=== PATIENT | female | born 1945 | race Caucasian/White ===

== ENCOUNTER → 2016-05-28 | Outpatient (CLI) | payer MEDICARE, OTHER | END | disposition home or self-care (01) | LOC: Rad HDHVI 12:53 | PROVIDERS: ATTEND Internal Medicine Cardiovascular Disease | DX: R07.9 Chest pain, unspecified (principal) | CPT/HCPCS: 93306 ==

== ENCOUNTER → 2016-06-05 | Outpatient (CLI) | payer MEDICARE, OTHER ==
[~2016-06-05] VITALS: Ht 172.7 cm; Wt 68.0 kg
== END | disposition home or self-care (01) ==
LOC: Rad HDHVI 08:01
PROVIDERS: ATTEND Internal Medicine Cardiovascular Disease
DX: R07.9 Chest pain, unspecified (principal); I10 Essential (primary) hypertension; E78.00 Pure hypercholesterolemia, unspecified; E11.9 Type 2 diabetes mellitus without complications; Z82.49 Family history of ischemic heart disease and other diseases of the circulatory system
CPT/HCPCS: 78452; 93017; 96374; A9500

== ENCOUNTER → 2016-07-14 | Outpatient (CLI) | payer MEDICARE, OTHER ==
[~2016-07-14] MED LIST: ALPR0.25 PO; ASPI81TA27 PO; BENA20TA4 PO; CANA1TAB3 PO; FAM20T PO; LINA5TAB PO; METF-312 PO; METF-314 PO; PRO20T PO; SIMV10TA84 PO; TEMA30CA PO
[2016-07-14 09:10] VITALS: BP 134/66
[2016-07-14 09:40] VITALS: BP 143/71
[2016-07-14 12:28] LABS: INR 0.99 (0.9-1.15); Partial Thromboplastin Time 25.8 sec (22.64-33.71); Prothrombin Time 10.2 sec (9.37-12.3)
[2016-07-14 12:32] LABS: Basophils # (auto) 0.1 uL; Basophils % (auto) 1.4 % (0.0-2.0); Eosinophils # (auto) 0.6 uL; Eosinophils % (auto) 10.4 % (0.0-7.0); Hematocrit 39.1 % (36.0-46.0); Hemoglobin 13.2 g/dL (12.2-16.2); Lymphocytes # (auto) 2.1 uL; Lymphocytes % (auto) 33.5 % (10.0-50.0); Mean Corpuscular Hemoglobin 31.8 pg (28.0-32.0); Mean Corpuscular Hgb Conc. 33.7 g/dL (32.0-36.0); Mean Corpuscular Volume 94.3 fL (80.0-100.0); Mean Platelet Volume 9.5 fL (7.4-10.4); Monocytes # (auto) 0.4 uL; Monocytes % (auto) 5.8 % (0.0-12.0); Neutrophils % (auto) 48.9 % (37.0-80.0); Platelet Count (auto) 318 10^3/uL (140-450); Red Cell Distribution Width 13.3 % (11.6-16.0); White Blood Cell 6.2 10^3/uL (4.4-10.8)
[2016-07-14 12:47] LABS: Calcium 8.5 mg/dL (8.5-10.1); Potassium 4.4 mmol/L (3.5-5.1)
== END | disposition home or self-care (01) ==
LOC: Rad HDHVI 08:55
PROVIDERS: ATTEND Internal Medicine Cardiovascular Disease
DX: I10 Essential (primary) hypertension (principal); D64.9 Anemia, unspecified; R79.1 Abnormal coagulation profile
CPT/HCPCS: 36415; 71020; 80048; 85025; 85610; 85730; 93005; G0463

== ENCOUNTER → 2016-10-05 | Outpatient (CLI) | payer MEDICARE, OTHER ==
[~2016-10-05] MED LIST changes: +CANA100T PO; -CANA1TAB3 PO
[2016-10-05 16:37] LABS: Urine Bilirubin Negative (Negative); Urine Blood Negative /uL (Negative); Urine Color Yellow (Yellow); Urine Ketone Negative (Negative); Urine Nitrite Negative (Negative); Urine Urobilinogen Normal (Negative)
[2016-10-05 17:01] LABS: Urine Glucose 4+ mg/dL (Normal)
== END | disposition home or self-care (01) ==
LOC: LAB 15:39
PROVIDERS: ATTEND Internal Medicine Cardiovascular Disease
DX: N39.0 Urinary tract infection, site not specified (principal)
CPT/HCPCS: 81003; 87086

== ENCOUNTER 2017-03-13 16:41 | Emergency (ER) | payer MEDICARE, OTHER ==
[~2017-03-13] VITALS: Ht 172.7 cm; Wt 67.1 kg
[~2017-03-13 16:41] MED LIST changes: +BENA20TA14 PO; -BENA20TA4 PO; -METF-312 PO; -METF-314 PO; +METF-370 PO; +METF-371 PO
[2017-03-13 18:49] VITALS: BP 181/78
[2017-03-13] MEDS ORDERED: HYDROcodone-ACET 5/325MG TAB PO ONE (19:15)
[2017-03-13] MEDS ORDERED: KETOROLAC TROMETH 30 MG/ML 1ML VIAL IM ONE (19:15)
== END 2017-03-13 20:42 | disposition home or self-care (01) ==
LOC: ER 16:41
DX: S20.212A Contusion of left front wall of thorax, initial encounter (principal); E11.9 Type 2 diabetes mellitus without complications; E78.5 Hyperlipidemia, unspecified; I10 Essential (primary) hypertension; Z95.1 Presence of aortocoronary bypass graft; Z88.0 Allergy status to penicillin; Z79.899 Other long term (current) drug therapy; W19.XXXA Unspecified fall, initial encounter; Y93.89 Activity, other specified; Y99.8 Other external cause status; Y92.89 Other specified places as the place of occurrence of the external cause
CPT/HCPCS: 71101; 72100; 93005; 96372; 99284; J1885

== ENCOUNTER → 2017-03-29 | Outpatient (CLI) | payer MEDICARE, OTHER | END | disposition home or self-care (01) | LOC: Rad HDHVI 11:43 | PROVIDERS: ATTEND Internal Medicine Cardiovascular Disease | DX: K44.9 Diaphragmatic hernia without obstruction or gangrene (principal); I70.0 Atherosclerosis of aorta | CPT/HCPCS: 71020 ==

== ENCOUNTER → 2017-04-01 | Outpatient (CLI) | payer MEDICARE, OTHER | END | disposition home or self-care (01) | LOC: LAB 07:45 | PROVIDERS: ATTEND Internal Medicine Cardiovascular Disease | DX: E11.9 Type 2 diabetes mellitus without complications (principal) | CPT/HCPCS: 36415; 83036 ==

== ENCOUNTER → 2017-06-16 | Outpatient (CLI) | payer MEDICARE, OTHER | END | disposition home or self-care (01) | LOC: Rad HDHVI 13:53 | PROVIDERS: ATTEND Internal Medicine Cardiovascular Disease | DX: E11.9 Type 2 diabetes mellitus without complications (principal); G45.9 Transient cerebral ischemic attack, unspecified | CPT/HCPCS: 93880 ==

== ENCOUNTER → 2017-10-14 | Outpatient (CLI) | payer MEDICARE, OTHER ==
[~2017-10-14] VITALS: Ht 172.7 cm; Wt 65.3 kg
[2017-10-14 11:53] LABS: Basophils # (auto) 0.1 uL; Basophils % (auto) 2.2 % (0.0-2.0); Eosinophils # (auto) 0.2 uL; Hematocrit 38.6 % (36.0-46.0); Lymphocytes # (auto) 2.2 uL; Lymphocytes % (auto) 37.6 % (10.0-50.0); Mean Corpuscular Hemoglobin 32.2 pg (28.0-32.0); Mean Corpuscular Hgb Conc. 33.7 g/dL (32.0-36.0); Mean Corpuscular Volume 95.6 fL (80.0-100.0); Monocytes # (auto) 0.4 uL; Monocytes % (auto) 7.6 % (0.0-12.0); Neutrophils # (auto) 2.9 uL; Neutrophils % (auto) 49.6 % (37.0-80.0); Nucleated Red Blood Cells % 0.2 %; Platelet Count (auto) 297 10^3/uL (140-450); Red Blood Cells 4.04 10^6/uL (4.0-5.20); White Blood Cell 5.9 10^3/uL (4.4-10.8)
[2017-10-14 11:54] LABS: Urine Blood Negative /uL (Negative)
[2017-10-14 12:10] LABS: Free T4 (Free Thyroxine) 1.16 ng/dL (0.89-1.76)
[2017-10-14 13:44] LABS: BUN/Creatinine Ratio 29.1; Potassium 4.1 mmol/L (3.5-5.1)
[2017-10-14 13:45] LABS: Albumin 3.8 g/dL (3.4-5.0); Bilirubin, Total 0.5 mg/dL (0.2-1.0); Calcium 8.8 mg/dL (8.5-10.1); Total Protein 8.1 g/dL (6.4-8.2)
== END | disposition home or self-care (01) ==
LOC: Rad HDHVI 08:34
PROVIDERS: ATTEND Internal Medicine Cardiovascular Disease
DX: Z00.01 Encounter for general adult medical examination with abnormal findings (principal); I63.9 Cerebral infarction, unspecified; E11.9 Type 2 diabetes mellitus without complications; E03.9 Hypothyroidism, unspecified; E55.9 Vitamin D deficiency, unspecified; D51.9 Vitamin B12 deficiency anemia, unspecified; N39.0 Urinary tract infection, site not specified
CPT/HCPCS: 36415; 78452; 80053; 80061; 81003; 82306; 82607; 83036; 84439; 84443; 85025; 93017; 96374; A9500

== ENCOUNTER 2018-01-15 04:39 | Inpatient (IN) | payer MEDICARE, OTHER ==
[~2018-01-15] VITALS: Ht 172.7 cm; Wt 63.8 kg
[2018-01-15] MEDS ORDERED: METF-370 PO (06:25)
[2018-01-15 06:29] LABS: Basophils # (auto) 0.1 uL; Basophils % (auto) 0.4 % (0.0-2.0); Eosinophils # (auto) 0 uL; Eosinophils % (auto) 0.3 % (0.0-7.0); Lymphocytes # (auto) 1.7 uL; Lymphocytes % (auto) 10.8 % (10.0-50.0); Mean Corpuscular Hemoglobin 32.3 pg (28.0-32.0); Monocytes # (auto) 0.9 uL; Monocytes % (auto) 5.5 % (0.0-12.0); Neutrophils # (auto) 13.1 uL; Platelet Count (auto) 378 10^3/uL (140-450); Red Blood Cells 4.64 10^6/uL (4.0-5.20); Red Cell Distribution Width 12.7 % (11.8-14.3); White Blood Cell 15.8 10^3/uL (4.4-10.8)
[2018-01-15] MEDS ORDERED: BENA40TA7 PO (06:31)
[2018-01-15] MEDS ORDERED: PROP10TA57 PO (06:31)
[2018-01-15] MEDS ORDERED: SIMV-8 PO (06:31)
[2018-01-15] MEDS ORDERED: CLIN1CAP3 PO (06:31)
[2018-01-15] MEDS ORDERED: METF-371 PO (06:31)
[2018-01-15] MEDS ORDERED: FLUC100T34 PO (06:31)
[2018-01-15] MEDS ORDERED: LINA5TAB PO (06:31)
[2018-01-15] MEDS ORDERED: CANA100T OR (06:31)
[2018-01-15 06:49] LABS: Albumin 4.3 g/dL (3.4-5.0); BUN/Creatinine Ratio 18.7; Bilirubin, Total 0.7 mg/dL (0.2-1.0); Calcium 8.8 mg/dL (8.5-10.1); Potassium 4.2 mmol/L (3.5-5.1); Total Protein 9.3 g/dL (6.4-8.2)
[2018-01-15 06:57] LABS: Urine Bacteria FEW /hpf (None Seen); Urine Blood Negative /uL (Negative); Urine Hyaline Cast FEW /lpf (0 - 2); Urine Mucus FEW (None Seen); Urine Specific Gravity 1.034 (1.001-1.035); Urine WBC 10 /hpf (0 - 5)
[2018-01-15] MEDS ORDERED: MORPHINE SULFATE 4 MG/ML SYR/VIAL IV ONE (07:45)
[2018-01-15] MEDS ORDERED: PROMETHAZINE HCL 25 MG/ML 1ML IV PRN ×2 (07:45→11:15)
[2018-01-15 08:42] LABS: INR 0.92 (0.9-1.15); Partial Thromboplastin Time 25.6 sec (23.78-33.04); Prothrombin Time 9.9 sec (9.27-12.13)
[2018-01-15 08:45] LABS: Magnesium 2.5 mg/dL (1.6-2.6)
[2018-01-15] MEDS ORDERED: cefTRIAXone 1GM/10ml IVPUSH 10 ML IV ONE (10:00)
[2018-01-15] MEDS ORDERED: HYDROcodone-ACET 5/325MG TAB PO PRN (11:15)
[2018-01-15] MEDS ORDERED: DEXTROSE (50%) 50ML SYRG IV PRN (11:15)
[2018-01-15] MEDS ORDERED: NITROGLYCERIN 0.4 MG SL TAB SL PRN (11:15)
[2018-01-15] MEDS ORDERED: LEVOFLOXACIN 500MG 100 ML IV ONE (11:15)
[2018-01-15] MEDS ORDERED: LORazepam 0.5 MG TAB PO PRN (11:15)
[2018-01-15] MEDS ORDERED: MORPHINE SULF INJ 2 MG/ML SYRINGE 1ML IV PRN (11:15)
[2018-01-15] MEDS ORDERED: ACETAMINOPHEN 500 MG TAB PO PRN (11:15)
[2018-01-15] MEDS: InsuLIN REG 1unit/0.01ml Soln (100units/ml) SC SCH ×3 (11:30→21:30)
[2018-01-15 11:48] LABS: Hematocrit 40.3 % (36.0-46.0); Hemoglobin 13.6 g/dL (12.2-16.2)
[2018-01-15] MEDS: SODIUM CHLORIDE 0.9% 1,000 ML IV SCH ×2 (11:52→21:28)
[2018-01-15] MEDS: MORPHINE SULF INJ 2 MG/ML SYRINGE 1ML IV PRN ×2 (11:53→20:12)
[2018-01-15] MEDS: ACCU-CHEK COMFORT CURVE STRIP VI SCH ×3 (11:53→21:30)
[2018-01-15] MEDS: PANTOPRAZOLE 40 MG TAB PO SCH (11:53)
[2018-01-15] MEDS: metroNIDAZOLE 500MG/100ML 100 ML IV SCH ×2 (12:33→17:43)
[2018-01-15] MEDS ORDERED: PNEUMOCOCCAL VACC POLYS 25 MCG/0.5 ML VIAL IM ONE (14:15)
[2018-01-15 17:02] VITALS: BP 146/68
[2018-01-15 18:15] LABS: Hematocrit 40.1 % (36.0-46.0); Hemoglobin 13.4 g/dL (12.2-16.2)
[2018-01-15] MEDS: ATORVASTATIN 20 MG TAB PO SCH (21:23)
[2018-01-15] MEDS: TEMAZEPAM 15 MG CAP PO PRN (21:23)
[2018-01-15 22:00] VITALS: BP 139/58
[2018-01-16] MEDS: metroNIDAZOLE 500MG/100ML 100 ML IV SCH ×4 (00:27→17:43)
[2018-01-16] MEDS: MORPHINE SULF INJ 2 MG/ML SYRINGE 1ML IV PRN (00:27)
[2018-01-16 02:04] LABS: Hematocrit 37.7 % (36.0-46.0); Hemoglobin 12.5 g/dL (12.2-16.2)
[2018-01-16] MEDS: InsuLIN REG 1unit/0.01ml Soln (100units/ml) SC SCH ×4 (06:16→21:49)
[2018-01-16] MEDS: ACCU-CHEK COMFORT CURVE STRIP VI SCH ×4 (06:16→21:49)
[2018-01-16] MEDS: SODIUM CHLORIDE 0.9% 1,000 ML IV SCH ×2 (06:16→17:44)
[2018-01-16 06:39] LABS: Basophils # (auto) 0.1 uL; Basophils % (auto) 0.5 % (0.0-2.0); Eosinophils # (auto) 0.2 uL; Eosinophils % (auto) 1.3 % (0.0-7.0); Hematocrit 37.2 % (36.0-46.0); Hemoglobin 12.5 g/dL (12.2-16.2); Lymphocytes # (auto) 2.6 uL; Lymphocytes % (auto) 21.1 % (10.0-50.0); Mean Corpuscular Hemoglobin 32.3 pg (28.0-32.0); Mean Corpuscular Hgb Conc. 33.6 g/dL (32.0-36.0); Monocytes # (auto) 0.8 uL; Monocytes % (auto) 6.7 % (0.0-12.0); Neutrophils # (auto) 8.6 uL; Neutrophils % (auto) 70.4 % (37.0-80.0); Platelet Count (auto) 281 10^3/uL (140-450); Red Blood Cells 3.88 10^6/uL (4.0-5.20); Red Cell Distribution Width 12.9 % (11.8-14.3); White Blood Cell 12.3 10^3/uL (4.4-10.8)
[2018-01-16 07:09] LABS: Albumin 3.1 g/dL (3.4-5.0); BUN/Creatinine Ratio 13.4; Bilirubin, Total 0.7 mg/dL (0.2-1.0); Calcium 7.6 mg/dL (8.5-10.1); Potassium 3.9 mmol/L (3.5-5.1); Total Protein 6.8 g/dL (6.4-8.2)
[2018-01-16 08:09] VITALS: BP 135/73
[2018-01-16] MEDS: LEVOFLOXACIN 500MG 100 ML IV SCH (09:55)
[2018-01-16] MEDS: PANTOPRAZOLE 40 MG TAB PO SCH (09:57)
[2018-01-16] MEDS ORDERED: PROPRANOLOL HCL 20 MG TAB PO SCH (10:00)
[2018-01-16 13:00] VITALS: BP 142/67
[2018-01-16] MEDS ORDERED: GOLYTELY 4L KIT PO ONE (13:45)
[2018-01-16 17:00] VITALS: BP 153/76
[2018-01-16 21:45] VITALS: BP 141/82
[2018-01-16] MEDS: BENAZEPRIL HCL 10 MG TAB PO SCH (21:47)
[2018-01-16] MEDS: PROPRANOLOL HCL 20 MG TAB PO SCH (21:48)
[2018-01-16] MEDS: ATORVASTATIN 20 MG TAB PO SCH (21:48)
[2018-01-16] MEDS ORDERED: PROPRANOLOL HCL 20 MG TAB PO ONE (22:00)
[2018-01-17] MEDS: metroNIDAZOLE 500MG/100ML 100 ML IV SCH ×5 (00:32→23:45)
[2018-01-17] MEDS: SODIUM CHLORIDE 0.9% 1,000 ML IV SCH ×3 (03:12→21:50)
[2018-01-17 04:58] VITALS: BP 128/59
[2018-01-17] MEDS: InsuLIN REG 1unit/0.01ml Soln (100units/ml) SC SCH ×4 (06:08→22:00)
[2018-01-17] MEDS: ACCU-CHEK COMFORT CURVE STRIP VI SCH ×4 (06:08→21:51)
[2018-01-17] MEDS ORDERED: fentaNYL CITRATE 100 MCG/2 ML VL ONE (10:50)
[2018-01-17] MEDS ORDERED: MIDAZOLAM HCL 1MG/1ML-2 ML VIAL ONE (10:50)
[2018-01-17] MEDS ORDERED: PROPOFOL 10 MG/ML 20 ML IV ONE (10:50)
[2018-01-17] MEDS ORDERED: ePHEDrine SULFATE 50 MG/ML AMP IV PRN (11:30)
[2018-01-17] MEDS ORDERED: hydrALAZINE HCL 20 MG/ML VL IV PRN (11:30)
[2018-01-17] MEDS ORDERED: ONDANSETRON HCL 4 MG/2 ML VIAL IV ONE (11:30)
[2018-01-17] MEDS ORDERED: fentaNYL CITRATE 100 MCG/2 ML VL IV ONE (12:00)
[2018-01-17 13:00] VITALS: BP 131/56
[2018-01-17] MEDS: PANTOPRAZOLE 40 MG TAB PO SCH (14:26)
[2018-01-17] MEDS: LEVOFLOXACIN 500MG 100 ML IV SCH (14:26)
[2018-01-17 17:00] VITALS: BP 130/61
[2018-01-17] MEDS: PROPRANOLOL HCL 20 MG TAB PO SCH (21:49)
[2018-01-17] MEDS: ATORVASTATIN 20 MG TAB PO SCH (21:49)
[2018-01-17] MEDS: TEMAZEPAM 15 MG CAP PO PRN (21:49)
[2018-01-17] MEDS: CIPROFLOXACIN HCL 500 MG TAB PO SCH (21:50)
[2018-01-17] MEDS: BENAZEPRIL HCL 10 MG TAB PO SCH (21:50)
[2018-01-17 22:00] VITALS: BP 144/74
[2018-01-18 05:38] VITALS: BP 118/42
[2018-01-18] MEDS: metroNIDAZOLE 500MG/100ML 100 ML IV SCH (06:03)
[2018-01-18] MEDS: ACCU-CHEK COMFORT CURVE STRIP VI SCH ×2 (06:04→11:30)
[2018-01-18] MEDS: InsuLIN REG 1unit/0.01ml Soln (100units/ml) SC SCH ×2 (06:20→11:30)
[2018-01-18 08:00] VITALS: BP 130/61
[2018-01-18] MEDS: SODIUM CHLORIDE 0.9% 1,000 ML IV SCH (08:53)
[2018-01-18] MEDS: CIPROFLOXACIN HCL 500 MG TAB PO SCH (08:54)
[2018-01-18] MEDS: PANTOPRAZOLE 40 MG TAB PO SCH (08:54)
[2018-01-18] MEDS: LEVOFLOXACIN 500MG 100 ML IV SCH (08:54)
[2018-01-18 09:00] VITALS: BP 123/61
[2018-01-18 13:00] VITALS: BP 127/59
[2018-01-18] MEDS ORDERED: metroNIDAZOLE 500 MG TAB PO SCH (14:00)
[2018-01-18 16:10] VITALS: BP 130/61
== END 2018-01-18 17:20 | disposition home or self-care (01) | DRG 871 ==
LOC: ER 04:39 → TELE 04:40 → TELE-WESTW 13:27
PROVIDERS: ADMIT Internal Medicine; ATTEND Internal Medicine Cardiovascular Disease
PROC: 0DBE8ZX Excision of Large Intestine, Via Natural or Artificial Opening Endoscopic, Diagnostic (ICD-10-PCS; principal; 2018-01-17 10:45)
DX: A41.9 Sepsis, unspecified organism (principal); K55.039 Acute (reversible) ischemia of large intestine, extent unspecified; K92.2 Gastrointestinal hemorrhage, unspecified; N39.0 Urinary tract infection, site not specified; E11.21 Type 2 diabetes mellitus with diabetic nephropathy; K80.20 Calculus of gallbladder without cholecystitis without obstruction; F41.9 Anxiety disorder, unspecified; E78.5 Hyperlipidemia, unspecified; I25.10 Atherosclerotic heart disease of native coronary artery without angina pectoris; I10 Essential (primary) hypertension; K44.9 Diaphragmatic hernia without obstruction or gangrene; E78.00 Pure hypercholesterolemia, unspecified; K21.9 Gastro-esophageal reflux disease without esophagitis; K59.00 Constipation, unspecified; Z82.49 Family history of ischemic heart disease and other diseases of the circulatory system; Z83.3 Family history of diabetes mellitus; Z87.891 Personal history of nicotine dependence; Z86.73 Personal history of transient ischemic attack (TIA), and cerebral infarction without residual deficits; Z90.710 Acquired absence of both cervix and uterus; Z98.61 Coronary angioplasty status; Z88.0 Allergy status to penicillin; Z23 Encounter for immunization
CPT/HCPCS: 36415; 45380; 71045; 74176; 80053; 81001; 82150; 82962; 83036; 83605; 83690; 83735; 84484; 85014; 85018; 85025; 85045; 85610; 85652; 85730; 86850; 86900; 86901; 87040; 87045; 87086; 87088; 87186; 87493; 87899; 94761; 96374; 96375; 96376; J0696; J1956; J2250; J2704; J3490

== ENCOUNTER → 2018-01-26 | Outpatient (CLI) | payer MEDICARE, OTHER ==
[~2018-01-26] MED LIST changes: -ALPR0.25 PO; -BENA20TA14 PO; +BENA40TA7 PO; +CANA100T OR; -CANA100T PO; +CLIN1CAP3 PO; +FLUC100T34 PO; +IOHEXOL 350 MG/ML 100ML IJ ONE; -PRO20T PO; +PROP10TA57 PO; -SIMV10TA84 PO
[2018-01-26 12:10] VITALS: BP 122/45
[2018-01-26 12:45] VITALS: BP 122/45
== END | disposition home or self-care (01) ==
LOC: Rad HDHVI 12:01
PROVIDERS: ATTEND Internal Medicine Cardiovascular Disease
DX: J32.9 Chronic sinusitis, unspecified (principal); I10 Essential (primary) hypertension; E11.9 Type 2 diabetes mellitus without complications; K21.9 Gastro-esophageal reflux disease without esophagitis; Z87.891 Personal history of nicotine dependence
CPT/HCPCS: 70487; 82565; G0463; Q9967

== ENCOUNTER → 2018-02-02 | Outpatient (CLI) | payer MEDICARE, OTHER ==
[~2018-02-02] MED LIST changes: -IOHEXOL 350 MG/ML 100ML IJ ONE
[2018-02-02 12:49] LABS: Basophils # (auto) 0.1 uL; Basophils % (auto) 1.5 % (0.0-2.0); Eosinophils # (auto) 0.3 uL; Eosinophils % (auto) 4.3 % (0.0-7.0); Hematocrit 41.5 % (36.0-46.0); Hemoglobin 14.1 g/dL (12.2-16.2); Lymphocytes # (auto) 2.7 uL; Mean Corpuscular Hemoglobin 32.7 pg (28.0-32.0); Mean Corpuscular Volume 96.2 fL (80.0-100.0); Monocytes # (auto) 0.6 uL; Neutrophils % (auto) 51.2 % (37.0-80.0); Platelet Count (auto) 393 10^3/uL (140-450); Red Blood Cells 4.32 10^6/uL (4.0-5.20); Red Cell Distribution Width 13.2 % (11.8-14.3); White Blood Cell 7.8 10^3/uL (4.4-10.8)
[2018-02-02 12:54] LABS: Urine Blood Negative /uL (Negative); Urine Specific Gravity 1.017 (1.001-1.035)
[2018-02-02 13:05] LABS: INR 0.91 (0.9-1.15); Partial Thromboplastin Time 24.9 sec (23.78-33.04); Prothrombin Time 9.8 sec (9.27-12.13)
[2018-02-02 15:28] LABS: Potassium 4.4 mmol/L (3.5-5.1)
== END | disposition home or self-care (01) ==
LOC: LAB 12:24
PROVIDERS: ATTEND Internal Medicine Cardiovascular Disease
DX: J32.8 Other chronic sinusitis (principal); I10 Essential (primary) hypertension; E11.9 Type 2 diabetes mellitus without complications; R79.1 Abnormal coagulation profile; K21.9 Gastro-esophageal reflux disease without esophagitis; Z87.891 Personal history of nicotine dependence; Z79.899 Other long term (current) drug therapy
CPT/HCPCS: 36415; 80051; 81003; 85025; 85610; 85730

== ENCOUNTER → 2018-03-02 | Outpatient (CLI) | payer MEDICARE, OTHER ==
[2018-03-02 12:35] LABS: Urine Bacteria NONE SEEN /hpf (None Seen); Urine Blood Negative /uL (Negative); Urine Budding Yeast OCCASIONAL /hpf (None Seen); Urine Specific Gravity 1.034 (1.001-1.035); Urine WBC 1 /hpf (0 - 5)
== END | disposition home or self-care (01) ==
LOC: LAB 11:37
PROVIDERS: ATTEND Internal Medicine Gastroenterology
DX: R10.9 Unspecified abdominal pain (principal)
CPT/HCPCS: 81001

== ENCOUNTER → 2018-05-12 | Outpatient (CLI) | payer MEDICARE, OTHER ==
[~2018-05-12] MED LIST changes: +CEFTRIAXONE SODIUM 2 GM in D5W 5% 50 ML IV ONE; +cefTRIAXone SOD 1,000 MG VL ONE
[2018-05-12 10:30] VITALS: BP 130/62
[2018-05-12 11:45] VITALS: BP 135/64
[2018-05-12 16:27] LABS: Basophils # (auto) 0 uL; Basophils % (auto) 0.4 % (0.0-2.0); Eosinophils # (auto) 0.1 uL; Eosinophils % (auto) 1.7 % (0.0-7.0); Hematocrit 33.3 % (36.0-46.0); Hemoglobin 10.9 g/dL (12.2-16.2); Lymphocytes # (auto) 2.7 uL; Lymphocytes % (auto) 32.5 % (10.0-50.0); Mean Corpuscular Hgb Conc. 32.8 g/dL (32.0-36.0); Mean Corpuscular Volume 94.3 fL (80.0-100.0); Monocytes # (auto) 0.6 uL; Monocytes % (auto) 6.8 % (0.0-12.0); Neutrophils # (auto) 4.9 uL; Neutrophils % (auto) 58.6 % (37.0-80.0); Nucleated Red Blood Cells % 0.2 %; Platelet Count (auto) 407 10^3/uL (140-450); Red Blood Cells 3.54 10^6/uL (4.0-5.20); White Blood Cell 8.3 10^3/uL (4.4-10.8)
[2018-05-12 16:33] LABS: Calcium 8.7 mg/dL (8.5-10.1); Potassium 4.7 mmol/L (3.5-5.1)
== END | disposition home or self-care (01) ==
LOC: CHF HDHVI 10:58
PROVIDERS: ATTEND Internal Medicine Cardiovascular Disease
DX: T81.40XA Infection following a procedure, unspecified, initial encounter (principal); J32.8 Other chronic sinusitis; D64.9 Anemia, unspecified; I10 Essential (primary) hypertension; K21.9 Gastro-esophageal reflux disease without esophagitis; F41.9 Anxiety disorder, unspecified; I25.10 Atherosclerotic heart disease of native coronary artery without angina pectoris; E78.5 Hyperlipidemia, unspecified; E78.00 Pure hypercholesterolemia, unspecified; E03.9 Hypothyroidism, unspecified; I70.0 Atherosclerosis of aorta; M19.90 Unspecified osteoarthritis, unspecified site; Z90.710 Acquired absence of both cervix and uterus; Z98.61 Coronary angioplasty status; Z79.899 Other long term (current) drug therapy
CPT/HCPCS: 36415; 80048; 85025; 96374; G0463; J0696

== ENCOUNTER → 2018-05-13 | Outpatient (CLI) | payer MEDICARE, OTHER ==
[~2018-05-13] MED LIST changes: +KETOROLAC TROMETH 30 MG/ML 1ML VIAL IV ONE; +KETOROLAC TROMETH 60MG/2ML VIAL IM ONE; +cefTRIAXone 1GM/50ML D5W 50 ML IV ONE
== END | disposition home or self-care (01) ==
LOC: CHF HDHVI 10:45
PROVIDERS: ATTEND Internal Medicine Cardiovascular Disease
DX: J32.9 Chronic sinusitis, unspecified (principal); J34.89 Other specified disorders of nose and nasal sinuses; F41.9 Anxiety disorder, unspecified; I70.0 Atherosclerosis of aorta; I25.10 Atherosclerotic heart disease of native coronary artery without angina pectoris; K21.9 Gastro-esophageal reflux disease without esophagitis; M19.90 Unspecified osteoarthritis, unspecified site; I10 Essential (primary) hypertension; E78.00 Pure hypercholesterolemia, unspecified; E11.21 Type 2 diabetes mellitus with diabetic nephropathy; E78.5 Hyperlipidemia, unspecified; E03.9 Hypothyroidism, unspecified; Z90.710 Acquired absence of both cervix and uterus; Z79.899 Other long term (current) drug therapy; Z95.5 Presence of coronary angioplasty implant and graft; Z87.891 Personal history of nicotine dependence; Z86.73 Personal history of transient ischemic attack (TIA), and cerebral infarction without residual deficits; Z95.1 Presence of aortocoronary bypass graft
CPT/HCPCS: 96372; 96374; 96375; G0463; J0696; J1885; J7060

== ENCOUNTER → 2018-05-16 | Outpatient (CLI) | payer MEDICARE, OTHER ==
[~2018-05-16] VITALS: Ht 30.5 cm; Wt 0.5 kg
[~2018-05-16] MED LIST changes: -KETOROLAC TROMETH 30 MG/ML 1ML VIAL IV ONE; -cefTRIAXone SOD 1,000 MG VL ONE
[2018-05-16 10:40] VITALS: BP 122/54
[2018-05-16 12:00] VITALS: BP 123/52
== END | disposition home or self-care (01) ==
LOC: CHF HDHVI 10:28
PROVIDERS: ATTEND Internal Medicine Cardiovascular Disease
DX: T81.40XA Infection following a procedure, unspecified, initial encounter (principal); J32.8 Other chronic sinusitis; E11.21 Type 2 diabetes mellitus with diabetic nephropathy; I10 Essential (primary) hypertension; I25.10 Atherosclerotic heart disease of native coronary artery without angina pectoris; I70.0 Atherosclerosis of aorta; E03.9 Hypothyroidism, unspecified; I34.1 Nonrheumatic mitral (valve) prolapse; E78.5 Hyperlipidemia, unspecified; E78.00 Pure hypercholesterolemia, unspecified; M19.90 Unspecified osteoarthritis, unspecified site; K21.9 Gastro-esophageal reflux disease without esophagitis; F41.9 Anxiety disorder, unspecified; Z86.73 Personal history of transient ischemic attack (TIA), and cerebral infarction without residual deficits; Z90.710 Acquired absence of both cervix and uterus; Z95.1 Presence of aortocoronary bypass graft; Z98.61 Coronary angioplasty status; Z79.899 Other long term (current) drug therapy; Z87.891 Personal history of nicotine dependence
CPT/HCPCS: 96365; 96372; G0463; J0696; J1885; J7060

== ENCOUNTER → 2018-05-18 | Outpatient (CLI) | payer MEDICARE, OTHER ==
[~2018-05-18] MED LIST changes: +KETOROLAC TROMETH 30 MG/ML 1ML VIAL IV ONE; -cefTRIAXone 1GM/50ML D5W 50 ML IV ONE; +cefTRIAXone SOD 1,000 MG VL ONE
[2018-05-18 11:05] VITALS: BP 149/61
--- NOTE | 2018-05-18 11:05 | NUR ---
PT. TO CLINIC FOR REPEAT ROCEPHIN INFUSION WITH ONE DAY BREAK IN DOSE PER HOLIDAY. PT. C/O RT UPPER SINUS PAIN 09/30. MD ORDERS RECEIVED AND CARRIED OUT. SEE NSG ASSESS.
--- NOTE | 2018-05-18 11:20 | NUR ---
IV insertion IV access obtained, via clean sterile technique by inserting 22 gauge catheter at after attempt(s). IV secured properly. No trauma to site. Patient tolerated procedure well.
--- NOTE | 2018-05-18 11:31 | NUR ---
MEDS: PT. MEDICATED WITH TORADOL 30 MG SIVP FOR SINUS PAIN 09/30.
--- NOTE | 2018-05-18 11:33 | NUR ---
MEDS: ROCEPHIN 2 GMS IVPB STARTED PER MD ORDER.
[2018-05-18 12:00] VITALS: BP 142/57
--- NOTE | 2018-05-18 12:00 | NUR ---
IV removal IV DC'd with sterile technique, catheter fully intact. Pressure dressing applied to site. Patient tolerated procedure well. Discharged with aftercare instructions per MD. NOTE:
== END | disposition home or self-care (01) ==
LOC: CHF HDHVI 11:10
PROVIDERS: ATTEND Internal Medicine Cardiovascular Disease
DX: J32.9 Chronic sinusitis, unspecified (principal); I25.10 Atherosclerotic heart disease of native coronary artery without angina pectoris; F41.9 Anxiety disorder, unspecified; I70.0 Atherosclerosis of aorta; I10 Essential (primary) hypertension; K21.9 Gastro-esophageal reflux disease without esophagitis; E78.5 Hyperlipidemia, unspecified; E03.9 Hypothyroidism, unspecified; E78.00 Pure hypercholesterolemia, unspecified; E11.21 Type 2 diabetes mellitus with diabetic nephropathy; M19.90 Unspecified osteoarthritis, unspecified site; Z86.73 Personal history of transient ischemic attack (TIA), and cerebral infarction without residual deficits; Z79.899 Other long term (current) drug therapy; Z95.5 Presence of coronary angioplasty implant and graft; Z87.891 Personal history of nicotine dependence; Z90.710 Acquired absence of both cervix and uterus; Z87.440 Personal history of urinary (tract) infections
CPT/HCPCS: 96365; 96375; G0463; J0696; J1885

== ENCOUNTER → 2018-05-19 | Outpatient (CLI) | payer MEDICARE, OTHER ==
[~2018-05-19] MED LIST changes: -KETOROLAC TROMETH 30 MG/ML 1ML VIAL IV ONE; +KETOROLAC TROMETH 30 MG/ML 1ML VIAL IV PRN; +cefTRIAXone 1GM/50ML D5W 100 ML IV ONE; -cefTRIAXone SOD 1,000 MG VL ONE
[2018-05-19 10:30] VITALS: BP 140/57
--- NOTE | 2018-05-19 10:30 | NUR ---
PT. TO CLINIC FOR SCHEDULED ABX THERAPY PER MD ORDER. ALSO C/O OF RT SINUS PAIN 09/30 WITH PREVIOUS RELIEF WITH TORADOL YESTERDAY. ORDERS RECEIVED AND CARRIED OUT. PER DR. DONALD IV TO REMAIN IN PLACE SO THIS RN CAN USE SITE FOR NEXT 2 VISITS.
--- NOTE | 2018-05-19 10:45 | NUR ---
IV insertion IV access obtained, via clean sterile technique by inserting 22 gauge catheter at after attempt(s). IV secured properly. No trauma to site. Patient tolerated procedure well.LABS DRAWN AND SENT PER MD ORDER.
--- NOTE | 2018-05-19 10:52 | NUR ---
MEDS: ROCEPHIN 2 GMS IVPB STARTED PER MD ORDER.
--- NOTE | 2018-05-19 11:35 | NUR ---
meds: PT. MEDICATED WITH TORADOL 30 MG SIVP FOR SINUS PAIN 4-09/30 PER MD ORDER.
--- NOTE | 2018-05-19 11:37 | NUR ---
IV MEDS COMPLETED. PT. TOLERATED MEDS WELL. HEPLOCK SECURED, FLUSHED WITH 200 UNITS HEPERIN PER PROTOCOL, SITE WRAPPED WITH COBAN AND SECURED WITH NETTING. SITE BENIGN.
[2018-05-19 11:42] VITALS: BP 134/59
--- NOTE | 2018-05-19 11:42 | NUR ---
Discharge Instructions See e-MAR for any mediations given with this visit. Patient education given on disease process. Patient verbalized understanding. Previous labs reviewed. Patient discharged in stable condition with after care instructions and follow up appointment. PT. TO RTC IN AM FOR REPEAT MEDS. PT. STATES PAIN IN SINUS DOWN TO 3/10 AT DISCHARGE WITH SPOUSE VIA POV.
[2018-05-19 12:16] LABS: Basophils # (auto) 0.1 uL; Basophils % (auto) 1.1 % (0.0-2.0); Eosinophils # (auto) 0.4 uL; Eosinophils % (auto) 4.5 % (0.0-7.0); Hematocrit 35.4 % (36.0-46.0); Hemoglobin 11.9 g/dL (12.2-16.2); Lymphocytes # (auto) 2.4 uL; Lymphocytes % (auto) 30.5 % (10.0-50.0); Mean Corpuscular Hemoglobin 31.2 pg (28.0-32.0); Mean Corpuscular Hgb Conc. 33.5 g/dL (32.0-36.0); Monocytes # (auto) 0.5 uL; Neutrophils # (auto) 4.4 uL; Neutrophils % (auto) 56.9 % (37.0-80.0); Nucleated Red Blood Cells % 0.1 %; Platelet Count (auto) 430 10^3/uL (140-450); Red Cell Distribution Width 13.7 % (11.8-14.3); White Blood Cell 7.7 10^3/uL (4.4-10.8)
[2018-05-19 12:17] LABS: Albumin 3.5 g/dL (3.4-5.0); Calcium 8.9 mg/dL (8.5-10.1); Potassium 4.2 mmol/L (3.5-5.1)
[2018-05-19 12:21] LABS: BUN/Creatinine Ratio 24.5; Bilirubin, Total 0.2 mg/dL (0.2-1.0); Total Protein 8.4 g/dL (6.4-8.2)
== END | disposition home or self-care (01) ==
LOC: CHF HDHVI 10:29
PROVIDERS: ATTEND Internal Medicine Cardiovascular Disease
DX: T81.40XA Infection following a procedure, unspecified, initial encounter (principal); G89.18 Other acute postprocedural pain; J34.89 Other specified disorders of nose and nasal sinuses; J32.9 Chronic sinusitis, unspecified; I11.0 Hypertensive heart disease with heart failure; I50.9 Heart failure, unspecified; D64.9 Anemia, unspecified; I25.10 Atherosclerotic heart disease of native coronary artery without angina pectoris; M19.90 Unspecified osteoarthritis, unspecified site; F41.9 Anxiety disorder, unspecified; K21.9 Gastro-esophageal reflux disease without esophagitis; E78.5 Hyperlipidemia, unspecified; E03.9 Hypothyroidism, unspecified; E11.21 Type 2 diabetes mellitus with diabetic nephropathy; I70.0 Atherosclerosis of aorta; Z90.49 Acquired absence of other specified parts of digestive tract; Z79.899 Other long term (current) drug therapy; Z87.891 Personal history of nicotine dependence; Z86.73 Personal history of transient ischemic attack (TIA), and cerebral infarction without residual deficits; Z95.5 Presence of coronary angioplasty implant and graft
CPT/HCPCS: 36415; 80053; 85025; 96365; 96375; G0463; J0696; J1642; J1885

== ENCOUNTER → 2018-05-20 | Outpatient (CLI) | payer MEDICARE, BC ==
[~2018-05-20] MED LIST changes: -CEFTRIAXONE SODIUM 2 GM in D5W 5% 50 ML IV ONE; +KETOROLAC TROMETH 30 MG/ML 1ML VIAL IV ONE; -KETOROLAC TROMETH 30 MG/ML 1ML VIAL IV PRN; -cefTRIAXone 1GM/50ML D5W 100 ML IV ONE; +cefTRIAXone 1GM/50ML D5W 50 ML IV ONE; +cefTRIAXone SOD 1,000 MG VL ONE
--- NOTE | 2018-05-20 10:49 | NUR ---
CHF PT TO CHF CLINIC FOR DR. BENNETT ORDERED 2GM ROCEPHIN IV DAILY POST SINUS SURGERY. PAIN TO FACE 7/10 FROM SINUS SURGERY.
--- NOTE | 2018-05-20 11:30 | NUR ---
CHF IV ROCEPHIN 2GM STARTED AT 100ML/HR AFTER 10ML NS FLUSH.
--- NOTE | 2018-05-20 12:25 | NUR ---
CHF ROCEPHIN IV COMPLETE. 10ML NS THAN TORADOL 30MG IVP, 5 ML NS HEPARIN 2.5ML, 100U/ML
[2018-05-20 12:30] VITALS: BP 150/60
--- NOTE | 2018-05-20 12:30 | NUR ---
CHF Discharge Instructions See e-MAR for any mediations given with this visit. Patient education given on disease process. Patient verbalized understanding. Previous labs reviewed. Patient discharged in stable condition with after care instructions and follow up appointment. FOLLOW UP TOMORROW FOR CONTINUED IV THERAPY
== END | disposition home or self-care (01) ==
LOC: CHF HDHVI 10:45
PROVIDERS: ATTEND Internal Medicine Cardiovascular Disease
DX: T81.40XA Infection following a procedure, unspecified, initial encounter (principal); J32.9 Chronic sinusitis, unspecified; I25.10 Atherosclerotic heart disease of native coronary artery without angina pectoris; I11.0 Hypertensive heart disease with heart failure; I50.9 Heart failure, unspecified; E11.21 Type 2 diabetes mellitus with diabetic nephropathy; I70.0 Atherosclerosis of aorta; E03.9 Hypothyroidism, unspecified; E78.5 Hyperlipidemia, unspecified; E78.00 Pure hypercholesterolemia, unspecified; D64.9 Anemia, unspecified; M19.90 Unspecified osteoarthritis, unspecified site; K21.9 Gastro-esophageal reflux disease without esophagitis; K80.00 Calculus of gallbladder with acute cholecystitis without obstruction; F41.9 Anxiety disorder, unspecified; Z95.5 Presence of coronary angioplasty implant and graft; Z95.1 Presence of aortocoronary bypass graft; Z87.891 Personal history of nicotine dependence; Z79.899 Other long term (current) drug therapy; Z86.73 Personal history of transient ischemic attack (TIA), and cerebral infarction without residual deficits; Z90.49 Acquired absence of other specified parts of digestive tract
CPT/HCPCS: 96365; 96375; G0463; J0696; J1642; J1885; 96372

== ENCOUNTER → 2018-05-21 | Outpatient (CLI) | payer MEDICARE, BC ==
[~2018-05-21] VITALS: Ht 30.5 cm; Wt 0.5 kg
[~2018-05-21] MED LIST changes: +cefTRIAXone 1GM/50ML D5W 50 ML IV SCH; -cefTRIAXone SOD 1,000 MG VL ONE
--- NOTE | 2018-05-21 10:00 | NUR ---
PT. TO CHF CLINIC FOR ROCEPHIN THERAPY. EXISTING HL RT. FA FLUSHED PER PROTOCOL, SITE BENIGN. ORDERS RECEIVED AND CARRIED OUT . C/O SINUS PAIN 12/31 WITH CONTINUED DRAINAGE PER PT. IN AM.
[2018-05-21 10:10] VITALS: BP 156/64
--- NOTE | 2018-05-21 10:10 | NUR ---
MEDS: PT. MEDICATED WITH TORADOL FOR SINUS PAIN. 12/31 .30MG SIVP.
[2018-05-21 10:13] VITALS: BP 153/70
--- NOTE | 2018-05-21 10:13 | NUR ---
MEDS: ROSA ONE GM IVPB STARTED PER MD ORDER . SPOUSE AT CHAIRSIDE FOR SUPPORT.
--- NOTE | 2018-05-21 11:20 | NUR ---
IV removal IV DC'd with sterile technique, catheter fully intact. Pressure dressing applied to site. Patient tolerated procedure well. Discharged with aftercare instructions per MD. NOTE: IV DC'D CANNULA INTACT, SITE BENIGN. PT TO RTC ON WEDNESDAY FOR REPEAT PROCEDURE. PAIN NOW 0/10 ON DISCHARGE.
== END | disposition home or self-care (01) ==
LOC: CHF HDHVI 10:34
PROVIDERS: ATTEND Internal Medicine Cardiovascular Disease
DX: J32.9 Chronic sinusitis, unspecified (principal); I11.0 Hypertensive heart disease with heart failure; I50.9 Heart failure, unspecified; E11.21 Type 2 diabetes mellitus with diabetic nephropathy; I25.10 Atherosclerotic heart disease of native coronary artery without angina pectoris; D64.9 Anemia, unspecified; F41.9 Anxiety disorder, unspecified; K21.9 Gastro-esophageal reflux disease without esophagitis; E78.5 Hyperlipidemia, unspecified; E03.9 Hypothyroidism, unspecified; E78.00 Pure hypercholesterolemia, unspecified; M19.90 Unspecified osteoarthritis, unspecified site; Z79.899 Other long term (current) drug therapy; Z95.1 Presence of aortocoronary bypass graft; Z95.5 Presence of coronary angioplasty implant and graft; Z87.891 Personal history of nicotine dependence; Z86.73 Personal history of transient ischemic attack (TIA), and cerebral infarction without residual deficits; Z87.440 Personal history of urinary (tract) infections; Z90.710 Acquired absence of both cervix and uterus
CPT/HCPCS: 96365; 96375; G0463; J0696; J1885

== ENCOUNTER → 2018-05-23 | Outpatient (CLI) | payer MEDICARE, BC ==
[~2018-05-23] MED LIST changes: +CEFTRIAXONE SODIUM 2 GM in D5W 5% 50 ML IV ONE; -KETOROLAC TROMETH 30 MG/ML 1ML VIAL IV ONE; -KETOROLAC TROMETH 60MG/2ML VIAL IM ONE; -cefTRIAXone 1GM/50ML D5W 50 ML IV ONE; -cefTRIAXone 1GM/50ML D5W 50 ML IV SCH; +cefTRIAXone SOD 1,000 MG VL ONE
--- NOTE | 2018-05-23 10:50 | NUR ---
PT. TO CLINIC FOR ORDERED ROCEPHIN PER MD.
[2018-05-23 10:55] VITALS: BP 152/65
--- NOTE | 2018-05-23 11:05 | NUR ---
IV insertion IV access obtained, via clean sterile technique by inserting 22 gauge catheter at after attempt(s). IV secured properly. No trauma to site. Patient tolerated procedure well.
--- NOTE | 2018-05-23 11:15 | NUR ---
MEDS: PT MEDICATED WITH ROCEPHIN 2 GMS IVPB PER MD ORDER.
[2018-05-23 12:15] VITALS: BP 160/69
--- NOTE | 2018-05-23 12:15 | NUR ---
IV removal IV DC'd with sterile technique, catheter fully intact. Pressure dressing applied to site. Patient tolerated procedure well. Discharged with aftercare instructions per MD. NOTE: PT. TO RTC ON WED. FOR IV MEDS.
== END | disposition home or self-care (01) ==
LOC: CHF HDHVI 10:42
PROVIDERS: ATTEND Internal Medicine Cardiovascular Disease
DX: J32.9 Chronic sinusitis, unspecified (principal); I11.0 Hypertensive heart disease with heart failure; I50.9 Heart failure, unspecified; E11.21 Type 2 diabetes mellitus with diabetic nephropathy; F41.9 Anxiety disorder, unspecified; I25.10 Atherosclerotic heart disease of native coronary artery without angina pectoris; K21.9 Gastro-esophageal reflux disease without esophagitis; E78.5 Hyperlipidemia, unspecified; E03.9 Hypothyroidism, unspecified; E78.00 Pure hypercholesterolemia, unspecified; M19.90 Unspecified osteoarthritis, unspecified site; Z87.440 Personal history of urinary (tract) infections; Z90.710 Acquired absence of both cervix and uterus; Z98.61 Coronary angioplasty status; Z79.899 Other long term (current) drug therapy; Z87.891 Personal history of nicotine dependence; Z95.1 Presence of aortocoronary bypass graft; Z86.73 Personal history of transient ischemic attack (TIA), and cerebral infarction without residual deficits
CPT/HCPCS: 96365; G0463; J0696; J7060

== ENCOUNTER → 2018-05-25 | Outpatient (CLI) | payer MEDICARE, BC ==
[~2018-05-25] MED LIST changes: +KETOROLAC TROMETH 60MG/2ML VIAL IM ONE; +cefTRIAXone 1GM/50ML D5W 50 ML IV ONE
[2018-05-25 10:55] VITALS: BP 152/54
--- NOTE | 2018-05-25 10:55 | NUR ---
IN TO CLINIC FOR IV ANTIBIOTICS FOR ONGOING COMPLAINT OF SINUS INFECTION. PT REPORTS STILL "HAVING PUS COMING OUT OF NASAL IRRIGATION" NIGHTLY. IV insertion IV access obtained, via clean sterile technique by inserting 22 gauge catheter at after attempt(s). IV secured properly. No trauma to site. Patient tolerated procedure well.
--- NOTE | 2018-05-25 11:33 | NUR ---
PT REPORTS JAW PAIN AND HEADACHE WITH NEW ONSET RATED 7/10. CLINIC PROVIDER CONSULTED AND ORDERS RECIEVED.
--- NOTE | 2018-05-25 12:20 | NUR ---
REPORTS COMPLETE RELIEF OF HEADACHE, RATES 0/10 CURRENTLY. INFUSION COMPLETED. IV SITE TO RIGHT FOREARM BANDAGED AND HEPARINIZED FOR LAST IV ANTIBIOTIC TREATMENT SCHEDULED TOMORROW.
[2018-05-25 12:25] VITALS: BP 139/66
--- NOTE | 2018-05-25 12:25 | NUR ---
Discharge Instructions See e-MAR for any mediations given with this visit. Patient education given on disease process. Patient verbalized understanding. Previous labs reviewed. Patient discharged in stable condition with after care instructions and follow up appointment FOR 05/26/18 MEDICATION ADMINISTRATION ROCEPHIN 2 GRAMS IVPB START AT 1120/STOP AT 1220 TORADOL 60 MG IM TO RIGHT GLUT AT 1133 HEPARIN 100 UNITS IVP TO RIGHT FOREARM IV SITE
== END | disposition home or self-care (01) ==
LOC: CHF HDHVI 11:03
PROVIDERS: ATTEND Internal Medicine Cardiovascular Disease
DX: J32.9 Chronic sinusitis, unspecified (principal); I25.10 Atherosclerotic heart disease of native coronary artery without angina pectoris; I11.0 Hypertensive heart disease with heart failure; I50.9 Heart failure, unspecified; I70.0 Atherosclerosis of aorta; K21.9 Gastro-esophageal reflux disease without esophagitis; E78.5 Hyperlipidemia, unspecified; E03.9 Hypothyroidism, unspecified; E78.00 Pure hypercholesterolemia, unspecified; E11.21 Type 2 diabetes mellitus with diabetic nephropathy; M19.90 Unspecified osteoarthritis, unspecified site; F41.9 Anxiety disorder, unspecified; Z87.891 Personal history of nicotine dependence; Z79.899 Other long term (current) drug therapy; Z95.1 Presence of aortocoronary bypass graft; Z98.61 Coronary angioplasty status; Z86.73 Personal history of transient ischemic attack (TIA), and cerebral infarction without residual deficits; Z90.710 Acquired absence of both cervix and uterus
CPT/HCPCS: 96365; 96372; G0463; J0696; J1642; J1885

== ENCOUNTER → 2018-05-26 | Outpatient (CLI) | payer MEDICARE, BC ==
[~2018-05-26] MED LIST changes: -KETOROLAC TROMETH 60MG/2ML VIAL IM ONE
[2018-05-26 11:50] VITALS: BP 153/70
--- NOTE | 2018-05-26 11:50 | NUR ---
IN TO CLINIC FOR LAST OF 10 DOSES OF IV ANTIBIOTICS. IV IN PLACE TO RIGHT FOREARM. IV SITE FLUSHED AND SITE BENIGN. USED FOR ROCEPHIN INFUSION AND SITE BENIGN POST INFUSION. PT TOLERATED WELL. VS WNL. Discharge Instructions See e-MAR for any mediations given with this visit. Patient education given on disease process. Patient verbalized understanding. Previous labs reviewed. Patient discharged in stable condition with after care instructions .
[2018-05-26 11:56] VITALS: BP 158/73
== END | disposition home or self-care (01) ==
LOC: CHF HDHVI 10:54
PROVIDERS: ATTEND Internal Medicine Cardiovascular Disease
DX: J32.9 Chronic sinusitis, unspecified (principal); F41.9 Anxiety disorder, unspecified; I70.0 Atherosclerosis of aorta; I25.10 Atherosclerotic heart disease of native coronary artery without angina pectoris; K21.9 Gastro-esophageal reflux disease without esophagitis; E78.5 Hyperlipidemia, unspecified; I11.0 Hypertensive heart disease with heart failure; I50.9 Heart failure, unspecified; E03.9 Hypothyroidism, unspecified; E78.00 Pure hypercholesterolemia, unspecified; E11.21 Type 2 diabetes mellitus with diabetic nephropathy; M19.90 Unspecified osteoarthritis, unspecified site; Z79.899 Other long term (current) drug therapy; Z90.710 Acquired absence of both cervix and uterus; Z95.5 Presence of coronary angioplasty implant and graft; Z87.891 Personal history of nicotine dependence; Z95.1 Presence of aortocoronary bypass graft; Z86.73 Personal history of transient ischemic attack (TIA), and cerebral infarction without residual deficits
CPT/HCPCS: 96365; G0463; J0696; J7060

== ENCOUNTER → 2018-05-30 | Outpatient (CLI) | payer MEDICARE, BC ==
[~2018-05-30] MED LIST changes: -CEFTRIAXONE SODIUM 2 GM in D5W 5% 50 ML IV ONE; +IOHEXOL 350 MG/ML 100ML IJ ONE; -cefTRIAXone 1GM/50ML D5W 50 ML IV ONE; -cefTRIAXone SOD 1,000 MG VL ONE
[2018-05-30 10:55] VITALS: BP 158/66
--- NOTE | 2018-05-30 10:55 | NUR ---
CHF PT TO CHF CLINIC C/O L UPPER BACK PAIN SHOULDER BLADE TO MID BACK SPASMS ON AND OFF X 2 WEEKS BUT REALLY BAD SINCE THIS WEEKEND
--- NOTE | 2018-05-30 11:05 | NUR ---
CHF IV insertion IV access obtained, via clean sterile technique by inserting 22 gauge catheter at after attempt(s). IV secured properly. No trauma to site. Patient tolerated procedure well. HOLD METFORMIN X 48 HR DUE TO IV CONTRAST USE WITH CAT SCAN. PT VERB UNDERSTANDING.
--- NOTE | 2018-05-30 11:45 | NUR ---
CHF CT COMPLETE.
--- NOTE | 2018-05-30 13:13 | NUR ---
Clinic Provider Clinic Provider DR. BENNETT CHAIRSIDE AND ADMINISTERED KENALOG 40MG WITH 1 ML LIDOCAINE INJECTION TO L BACK PAIN AREA AT BRA LINE. PT with new orders received and carried out.
[2018-05-30 13:16] VITALS: BP 160/61
--- NOTE | 2018-05-30 13:21 | NUR ---
CHF PT STATES PAIN TO BACK WAS 10/10 UPON ARRIVAL, THAN AFTER INJECTION PT STATED PAIN 5/10 . Discharge Instructions See e-MAR for any mediations given with this visit. Patient education given on disease process. Patient verbalized understanding. Previous labs reviewed. Patient discharged in stable condition with after care instructions and follow up appointment. Addendum: 05/30/18 at 1327 by Betty Rodriguez RN ND KENALOG AND LIDOCAINE FROM MD OFFICE . DR. BENNETT BROUGHT IT WITH HIM TO INJECT INTO PT AT CLINIC.
[2018-05-30 16:36] LABS: Urine Blood Negative /uL (Negative); Urine Specific Gravity 1.026 (1.001-1.035)
[2018-05-30 16:54] LABS: Eosinophils # (auto) 0.3 uL; Mean Corpuscular Hgb Conc. 32.1 g/dL (32.0-36.0); Neutrophils # (auto) 7.2 uL; Red Blood Cells 4.29 10^6/uL (4.0-5.20)
[2018-05-30 16:57] LABS: Basophils # (auto) 0.2 uL; Basophils % (auto) 1.4 % (0.0-2.0); Eosinophils % (auto) 2.5 % (0.0-7.0); Hematocrit 40.5 % (36.0-46.0); Lymphocytes % (auto) 26.3 % (10.0-50.0); Mean Corpuscular Hemoglobin 30.3 pg (28.0-32.0); Mean Corpuscular Volume 94.5 fL (80.0-100.0); Monocytes # (auto) 0.8 uL; Monocytes % (auto) 6.9 % (0.0-12.0); Neutrophils % (auto) 62.9 % (37.0-80.0); Nucleated Red Blood Cells % 0.1 %; Platelet Count (auto) 471 10^3/uL (140-450); Red Cell Distribution Width 13.8 % (11.8-14.3); White Blood Cell 11.4 10^3/uL (4.4-10.8)
== END | disposition home or self-care (01) ==
LOC: CHF HDHVI 10:59
PROVIDERS: ATTEND Internal Medicine Cardiovascular Disease
DX: N39.0 Urinary tract infection, site not specified (principal); D64.9 Anemia, unspecified; R94.4 Abnormal results of kidney function studies; R09.1 Pleurisy; I25.10 Atherosclerotic heart disease of native coronary artery without angina pectoris; K44.9 Diaphragmatic hernia without obstruction or gangrene; K80.20 Calculus of gallbladder without cholecystitis without obstruction
CPT/HCPCS: 36415; 71260; 81003; 82565; 84520; 85025; 87086; G0463; Q9967

== ENCOUNTER → 2018-07-26 | Outpatient (CLI) | payer MEDICARE, BC ==
[~2018-07-26] MED LIST changes: -IOHEXOL 350 MG/ML 100ML IJ ONE
[2018-07-26 12:12] LABS: Basophils # (auto) 0.1 uL; Basophils % (auto) 1.4 % (0.0-2.0); Eosinophils # (auto) 0.3 uL; Eosinophils % (auto) 4.9 % (0.0-7.0); Hematocrit 39.1 % (36.0-46.0); Hemoglobin 12.7 g/dL (12.2-16.2); Lymphocytes # (auto) 2.1 uL; Lymphocytes % (auto) 31.3 % (10.0-50.0); Mean Corpuscular Hemoglobin 30.8 pg (28.0-32.0); Mean Corpuscular Hgb Conc. 32.5 g/dL (32.0-36.0); Monocytes # (auto) 0.5 uL; Monocytes % (auto) 7.8 % (0.0-12.0); Neutrophils # (auto) 3.7 uL; Neutrophils % (auto) 54.6 % (37.0-80.0); Platelet Count (auto) 386 10^3/uL (140-450); Red Blood Cells 4.12 10^6/uL (4.0-5.20); Red Cell Distribution Width 14.6 % (11.8-14.3); White Blood Cell 6.8 10^3/uL (4.4-10.8)
[2018-07-26 12:21] LABS: Urine Blood Negative /uL (Negative); Urine Specific Gravity 1.024 (1.001-1.035)
[2018-07-26 13:04] LABS: Alkaline Phosphatase 70 U/L (45-117); Bilirubin, Total 0.3 mg/dL (0.2-1.0); HDL Cholesterol 44 mg/dL (40-59); LDL Cholesterol 176 mg/dL (< 100); Triglycerides 176 mg/dL (< 150)
[2018-07-26 13:34] LABS: Alanine Aminotransferase 26 U/L (13-56); Anion Gap 10 (5-15); Aspartate Aminotransferase 22 U/L (15-37); BUN/Creatinine Ratio 22.3; Blood Urea Nitrogen 23 mg/dL (7-18); Calcium 9.3 mg/dL (8.5-10.1); Carbon Dioxide 21 mmol/L (21-32); Chloride 105 mmol/L (98-107); GFR African American 67 mL/min; GFR Non-African American 56 mL/min; Glucose 113 mg/dL (74-106); Potassium 4.8 mmol/L (3.5-5.1); Sodium 136 mmol/L (136-145)
[2018-07-26 13:35] LABS: Albumin 3.5 g/dL (3.4-5.0); Cholesterol 242 mg/dL (< 200); Total Protein 8.6 g/dL (6.4-8.2)
[2018-07-26 19:29] LABS: Free T4 (Free Thyroxine) 1.21 ng/dL (0.89-1.76)
== END | disposition home or self-care (01) ==
LOC: LAB 09:22
PROVIDERS: ATTEND Internal Medicine Cardiovascular Disease
DX: E55.9 Vitamin D deficiency, unspecified (principal); E03.9 Hypothyroidism, unspecified; E11.9 Type 2 diabetes mellitus without complications; D51.9 Vitamin B12 deficiency anemia, unspecified; N39.0 Urinary tract infection, site not specified
CPT/HCPCS: 36415; 80053; 80061; 81003; 82306; 82607; 83036; 84439; 84443; 85025; 87086

== ENCOUNTER → 2018-08-03 | Outpatient (CLI) | payer MEDICARE, BC ==
[~2018-08-03] VITALS: Ht 30.5 cm; Wt 0.5 kg
[~2018-08-03] MED LIST changes: +MVI in SODIUM CHLORIDE 0.9% 1,010 ML ONE; +MVI in SODIUM CHLORIDE 0.9% 500 ML IVB ONE
[2018-08-03 11:10] VITALS: BP 126/70
--- NOTE | 2018-08-03 11:10 | NUR ---
FROM DR HALL WITH NEW ORDERS. PT TO RECEIVE IV FLUIDS WITH MULTIVITAMIN.
--- NOTE | 2018-08-03 11:20 | NUR ---
IV insertion IV access obtained, via clean sterile technique by inserting 22 gauge catheter at after attempt(s). IV secured properly. No trauma to site. Patient tolerated procedure well. START IV FLUIDS PER ORDER.
--- NOTE | 2018-08-03 12:50 | NUR ---
IV FLUIDS INFUSING WITHOUT INCIDENT. TOLERATING WELL.
[2018-08-03 13:40] VITALS: BP 134/51
--- NOTE | 2018-08-03 13:40 | NUR ---
IV removal IV DC'd with sterile technique, catheter fully intact. Pressure dressing applied to site. Patient tolerated procedure well. Discharged with aftercare instructions per MD. NOTE:
--- NOTE | 2018-08-03 13:45 | NUR ---
Discharge Instructions See e-MAR for any mediations given with this visit. Patient education given on disease process. Patient verbalized understanding. Previous labs reviewed. Patient discharged in stable condition with after care instructions and follow up appointment.
== END | disposition home or self-care (01) ==
LOC: CHF HDHVI 11:09
PROVIDERS: ATTEND Internal Medicine Cardiovascular Disease
DX: E86.0 Dehydration (principal); J32.9 Chronic sinusitis, unspecified; E11.9 Type 2 diabetes mellitus without complications; E03.9 Hypothyroidism, unspecified
CPT/HCPCS: 96365; 96366; G0463; J3411; J3475; 70220

== ENCOUNTER → 2018-11-15 | Outpatient (CLI) | payer MEDICARE, BC ==
[~2018-11-15] MED LIST changes: +ALPR0.25 PO; +BENA20TA14 PO; +EZET10TA6 PO; -MVI in SODIUM CHLORIDE 0.9% 1,010 ML ONE; -MVI in SODIUM CHLORIDE 0.9% 500 ML IVB ONE; +OME20T PO; +SIMV10TA84 PO; +SITA100T7 PO
[2018-11-15 10:15] VITALS: BP 127/64
--- NOTE | 2018-11-15 10:45 | NUR ---
PRE OP FOR LEFT AND RIGHT HEART CATH FOR 11/17/18 Pre-Op Discharge Summary: See e-MAR for any medications given for this visit. Pre-op orders received and carried out per MD of EKG, LABS and chest xrays. Patient given a copy of EKG with instructions to go to [facility] out patient for further follow up care.
[2018-11-15 11:39] VITALS: BP 127/64
[2018-11-15 12:13] LABS: Basophils # (auto) 0.1 uL; Basophils % (auto) 1.4 % (0.0-2.0); Eosinophils # (auto) 0.5 uL; Eosinophils % (auto) 6.4 % (0.0-7.0); Hemoglobin 12.4 g/dL (12.2-16.2); Lymphocytes # (auto) 2.6 uL; Lymphocytes % (auto) 32.9 % (10.0-50.0); Mean Corpuscular Hemoglobin 31.4 pg (28.0-32.0); Mean Corpuscular Hgb Conc. 33.4 g/dL (32.0-36.0); Mean Corpuscular Volume 94.1 fL (80.0-100.0); Monocytes # (auto) 0.5 uL; Monocytes % (auto) 6.2 % (0.0-12.0); Neutrophils # (auto) 4.2 uL; Neutrophils % (auto) 53.1 % (37.0-80.0); Nucleated Red Blood Cells % 0.1 %; Platelet Count (auto) 374 10^3/uL (140-450); Red Blood Cells 3.93 10^6/uL (4.0-5.20); Red Cell Distribution Width 13.2 % (11.8-14.3)
[2018-11-15 12:21] LABS: Urine Blood Negative /uL (Negative); Urine Specific Gravity 1.024 (1.001-1.035)
[2018-11-15 12:28] LABS: INR < 0.93 (0.9-1.15); Partial Thromboplastin Time 24.7 sec (23.64-32.05)
[2018-11-15 14:23] LABS: BUN/Creatinine Ratio 21.1; Calcium 9.4 mg/dL (8.5-10.1); Potassium 4.6 mmol/L (3.5-5.1)
== END | disposition home or self-care (01) ==
LOC: Rad HDHVI 09:48
PROVIDERS: ATTEND Internal Medicine Cardiovascular Disease
DX: Z01.818 Encounter for other preprocedural examination (principal); K44.9 Diaphragmatic hernia without obstruction or gangrene; D64.9 Anemia, unspecified; R79.1 Abnormal coagulation profile; I10 Essential (primary) hypertension; E11.9 Type 2 diabetes mellitus without complications
CPT/HCPCS: 36415; 71046; 80048; 81003; 82962; 85025; 85610; 85730; 93005; G0463

== ENCOUNTER 2018-11-17 08:47 | Inpatient (IN) | payer MEDICARE, OTHER | END 2018-11-18 11:15 | disposition home or self-care (01) | LOC: CATH 08:47 → WEST WING 15:09 | PROC: 02713EZ Dilation of Coronary Artery, Two Arteries with Two Intraluminal Devices, Percutaneous Approach (ICD-10-PCS; principal; ~2018-11-17) | PROC: B2111ZZ Fluoroscopy of Multiple Coronary Arteries using Low Osmolar Contrast (ICD-10-PCS; ~2018-11-17) | PROC: B2161ZZ Fluoroscopy of Right and Left Heart using Low Osmolar Contrast (ICD-10-PCS; ~2018-11-17) | DX: I25.10 Atherosclerotic heart disease of native coronary artery without angina pectoris (principal); E13.40 Other specified diabetes mellitus with diabetic neuropathy, unspecified; E13.21 Other specified diabetes mellitus with diabetic nephropathy; I10 Essential (primary) hypertension; J01.91 Acute recurrent sinusitis, unspecified ==

== ENCOUNTER → 2018-12-19 | Outpatient (CLI) | payer MEDICARE, BC ==
[~2018-12-19] MED LIST changes: +ASPI-404 PO; -ASPI81TA27 PO; -BENA40TA7 PO; -CANA100T OR; +CANA100T PO; -CLIN1CAP3 PO; +CLOP75TA28 PO; +EZET10TA22 PO; -EZET10TA6 PO; -FLUC100T34 PO; -LINA5TAB PO; +MAGN400T5 PO
[2018-12-19 12:20] LABS: Potassium 4.3 mmol/L (3.5-5.1)
[2018-12-19 12:24] LABS: BUN/Creatinine Ratio 21.7; Basophils # (auto) 0.1 uL; Basophils % (auto) 0.9 % (0.0-2.0); Eosinophils # (auto) 0.3 uL; Eosinophils % (auto) 4.7 % (0.0-7.0); Hematocrit 34.3 % (36.0-46.0); Hemoglobin 11.5 g/dL (12.2-16.2); Lymphocytes # (auto) 1.8 uL; Lymphocytes % (auto) 27.2 % (10.0-50.0); Mean Corpuscular Hemoglobin 31.5 pg (28.0-32.0); Mean Corpuscular Hgb Conc. 33.6 g/dL (32.0-36.0); Mean Corpuscular Volume 93.8 fL (80.0-100.0); Monocytes # (auto) 0.5 uL; Monocytes % (auto) 7.5 % (0.0-12.0); Neutrophils # (auto) 3.8 uL; Neutrophils % (auto) 59.7 % (37.0-80.0); Nucleated Red Blood Cells % 0.1 %; Platelet Count (auto) 341 10^3/uL (140-450); Red Blood Cells 3.66 10^6/uL (4.0-5.20); Red Cell Distribution Width 13.5 % (11.8-14.3); White Blood Cell 6.4 10^3/uL (4.4-10.8)
[2018-12-19 12:25] LABS: INR < 0.93 (0.9-1.15); Partial Thromboplastin Time 25.1 sec (23.64-32.05)
== END | disposition home or self-care (01) ==
LOC: Rad HDHVI 09:06
PROVIDERS: ATTEND Internal Medicine Cardiovascular Disease
DX: Z01.812 Encounter for preprocedural laboratory examination (principal); D64.9 Anemia, unspecified; R79.1 Abnormal coagulation profile; I10 Essential (primary) hypertension; K44.9 Diaphragmatic hernia without obstruction or gangrene; I70.0 Atherosclerosis of aorta
CPT/HCPCS: 36415; 71046; 80048; 85025; 85610; 85730

== ENCOUNTER → 2019-01-02 | Outpatient (CLI) | payer MEDICARE, BC ==
[~2019-01-02] MED LIST changes: +READI-CAT 2 (BARIUM SULF)(VANILLA SMOOTHIE) 450ML ONE
== END | disposition home or self-care (01) ==
LOC: Rad HDHVI 10:14
PROVIDERS: ATTEND Internal Medicine Cardiovascular Disease
DX: K80.20 Calculus of gallbladder without cholecystitis without obstruction (principal); K44.9 Diaphragmatic hernia without obstruction or gangrene; I70.0 Atherosclerosis of aorta
CPT/HCPCS: 74176

== ENCOUNTER → 2019-03-28 | Outpatient (CLI) | payer MEDICARE, BC ==
[~2019-03-28] MED LIST changes: -READI-CAT 2 (BARIUM SULF)(VANILLA SMOOTHIE) 450ML ONE
[2019-03-28 12:03] LABS: Basophils # (auto) 0.1 uL; Basophils % (auto) 1.4 % (0.0-2.0); Eosinophils # (auto) 0.2 uL; Hematocrit 38.4 % (36.0-46.0); Hemoglobin 12.9 g/dL (12.2-16.2); Lymphocytes # (auto) 0.9 uL; Lymphocytes % (auto) 23.5 % (10.0-50.0); Mean Corpuscular Hemoglobin 33.6 pg (28.0-32.0); Mean Corpuscular Hgb Conc. 33.5 g/dL (32.0-36.0); Mean Corpuscular Volume 100.4 fL (80.0-100.0); Monocytes # (auto) 0.3 uL; Monocytes % (auto) 8.8 % (0.0-12.0); Neutrophils # (auto) 2.3 uL; Neutrophils % (auto) 61.3 % (37.0-80.0); Nucleated Red Blood Cells % 0.1 %; Platelet Count (auto) 150 10^3/uL (140-450); Red Blood Cells 3.83 10^6/uL (4.0-5.20); Red Cell Distribution Width 14.1 % (11.8-14.3); White Blood Cell 3.8 10^3/uL (4.4-10.8)
[2019-03-28 12:08] LABS: Urine Blood Negative /uL (Negative); Urine Specific Gravity 1.025 (1.001-1.035)
[2019-03-28 12:28] LABS: Albumin 4.1 g/dL (3.4-5.0); Calcium 9.6 mg/dL (8.5-10.1); Potassium 3.9 mmol/L (3.5-5.1)
[2019-03-28 12:34] LABS: BUN/Creatinine Ratio 17.6; Bilirubin, Total 0.5 mg/dL (0.2-1.0); Total Protein 7.6 g/dL (6.4-8.2)
[2019-03-28 12:38] LABS: Free T4 (Free Thyroxine) 0.77 ng/dL (0.89-1.76)
== END | disposition home or self-care (01) ==
LOC: LAB 08:25
PROVIDERS: ATTEND Internal Medicine Cardiovascular Disease
DX: E03.9 Hypothyroidism, unspecified (principal); K90.9 Intestinal malabsorption, unspecified; N39.0 Urinary tract infection, site not specified; D51.9 Vitamin B12 deficiency anemia, unspecified; E11.40 Type 2 diabetes mellitus with diabetic neuropathy, unspecified; N81.10 Cystocele, unspecified; Z79.899 Other long term (current) drug therapy; Z87.891 Personal history of nicotine dependence; Z88.0 Allergy status to penicillin; Z90.710 Acquired absence of both cervix and uterus; Z95.818 Presence of other cardiac implants and grafts
CPT/HCPCS: 36415; 80053; 80061; 81003; 82306; 82607; 83036; 84439; 84443; 85025; 87086; 87088; 87186

== ENCOUNTER → 2019-06-13 | Outpatient (CLI) | payer MEDICARE, BC ==
[~2019-06-13] MED LIST changes: +MAGN400T40 PO; -MAGN400T5 PO
== END | disposition home or self-care (01) ==
LOC: Rad HDHVI 09:24
PROVIDERS: ATTEND Internal Medicine
DX: K44.9 Diaphragmatic hernia without obstruction or gangrene (principal); I70.0 Atherosclerosis of aorta; M85.80 Other specified disorders of bone density and structure, unspecified site; R06.02 Shortness of breath
CPT/HCPCS: 71046

== ENCOUNTER → 2019-06-28 | Outpatient (CLI) | payer MEDICARE, BC | END | disposition home or self-care (01) | LOC: Rad HDHVI 10:51 | PROVIDERS: ATTEND Internal Medicine Cardiovascular Disease | DX: J32.9 Chronic sinusitis, unspecified (principal) | CPT/HCPCS: 70220 ==

== ENCOUNTER → 2019-09-27 | Outpatient (CLI) | payer MEDICARE, BC | END | disposition home or self-care (01) | LOC: Rad HDHVI 11:26 | PROVIDERS: ATTEND Internal Medicine Cardiovascular Disease | DX: M19.072 Primary osteoarthritis, left ankle and foot (principal); M77.32 Calcaneal spur, left foot | CPT/HCPCS: 73630 ==

== ENCOUNTER → 2019-11-03 | Outpatient (CLI) | payer MEDICARE, BC ==
[~2019-11-03] MED LIST changes: -ASPI-404 PO; +ASPI-543 PO; -FAM20T PO; +FAMO20TA10 PO
== END | disposition home or self-care (01) ==
LOC: Rad HDHVI 08:58
PROVIDERS: ATTEND Internal Medicine Cardiovascular Disease
DX: I25.10 Atherosclerotic heart disease of native coronary artery without angina pectoris (principal); I25.5 Ischemic cardiomyopathy; E78.5 Hyperlipidemia, unspecified
CPT/HCPCS: 93306

== ENCOUNTER → 2019-11-16 | Outpatient (CLI) | payer MEDICARE, BC ==
[~2019-11-16] VITALS: Ht 172.7 cm; Wt 65.8 kg
[~2019-11-16] MED LIST changes: +ASPI-404 PO; -ASPI-543 PO; +FAM20T PO; -FAMO20TA10 PO
== END | disposition home or self-care (01) ==
LOC: Rad HDHVI 12:51
PROVIDERS: ATTEND Internal Medicine Cardiovascular Disease
DX: E78.5 Hyperlipidemia, unspecified (principal); E11.9 Type 2 diabetes mellitus without complications; R61 Generalized hyperhidrosis
CPT/HCPCS: 78452; 82962; 93017; 96374; A9500

== ENCOUNTER → 2020-04-02 | Outpatient (CLI) | payer MEDICARE, BC ==
[~2020-04-02] MED LIST changes: -ASPI-404 PO; +ASPI-543 PO; -FAM20T PO; +FAMO20TA10 PO
[2020-04-02 12:08] LABS: Basophils # (auto) 0.1 10 ^3/uL (0-0.2); Basophils % (auto) 0.9 % (0.0-2.0); Eosinophils # (auto) 0.2 10 ^3/uL (0-0.8); Eosinophils % (auto) 3.5 % (0.0-7.0); Hematocrit 35.1 % (36.0-46.0); Hemoglobin 11.7 g/dL (12.2-16.2); Lymphocytes % (auto) 29.6 % (10.0-50.0); Mean Corpuscular Hgb Conc. 33.4 g/dL (32.0-36.0); Mean Corpuscular Volume 89.9 fL (80.0-100.0); Monocytes # (auto) 0.6 10 ^3/uL (0-1.3); Monocytes % (auto) 8.6 % (0.0-12.0); Neutrophils # (auto) 3.8 10 ^3/uL (1.6-8.6); Neutrophils % (auto) 57.4 % (37.0-80.0); Nucleated Red Blood Cells % 0.1 %; Platelet Count (auto) 418 10^3/uL (140-450); Red Cell Distribution Width 16.7 % (11.8-14.3); White Blood Cell 6.6 10^3/uL (4.4-10.8)
[2020-04-02 12:09] LABS: Urine Blood Negative /uL (Negative); Urine Specific Gravity 1.012 (1.001-1.035)
[2020-04-02 12:23] LABS: Potassium 5.2 mmol/L (3.5-5.1)
[2020-04-02 12:32] LABS: Free T4 (Free Thyroxine) 0.91 ng/dL (0.89-1.76)
[2020-04-02 12:34] LABS: Albumin 3.8 g/dL (3.4-5.0); BUN/Creatinine Ratio 14.9; Bilirubin, Total 0.3 mg/dL (0.2-1.0); Calcium 9.4 mg/dL (8.5-10.1); Total Protein 7.9 g/dL (6.4-8.2)
== END | disposition home or self-care (01) ==
LOC: LAB 08:43
PROVIDERS: ATTEND Internal Medicine Cardiovascular Disease
DX: E11.9 Type 2 diabetes mellitus without complications (principal); D51.3 Other dietary vitamin B12 deficiency anemia; I10 Essential (primary) hypertension; E55.9 Vitamin D deficiency, unspecified; D64.9 Anemia, unspecified; R00.2 Palpitations; R53.1 Weakness; R30.0 Dysuria
CPT/HCPCS: 36415; 80053; 80061; 81003; 82306; 82607; 83036; 84439; 84443; 85025

== ENCOUNTER → 2020-07-01 | Outpatient (CLI) | payer MEDICARE, BC ==
[2020-07-01 12:18] LABS: Potassium 4.4 mmol/L (3.5-5.1)
[2020-07-01 12:32] LABS: BUN/Creatinine Ratio 15.3; Calcium 9.1 mg/dL (8.5-10.1)
== END | disposition home or self-care (01) ==
LOC: LAB 10:24
PROVIDERS: ATTEND Internal Medicine Cardiovascular Disease
DX: I10 Essential (primary) hypertension (principal)
CPT/HCPCS: 36415; 80048

== ENCOUNTER → 2020-12-04 | Outpatient (CLI) | payer MEDICARE, BC | END | disposition home or self-care (01) | LOC: Rad HDHVI 11:20 | PROVIDERS: ATTEND Internal Medicine Cardiovascular Disease | DX: K44.9 Diaphragmatic hernia without obstruction or gangrene (principal); I70.0 Atherosclerosis of aorta; R06.02 Shortness of breath; I10 Essential (primary) hypertension | CPT/HCPCS: 71046; 93306 ==

== ENCOUNTER → 2020-12-23 | Outpatient (CLI) | payer MEDICARE, BC ==
[~2020-12-23] VITALS: Ht 172.7 cm; Wt 67.1 kg
== END | disposition home or self-care (01) ==
LOC: Rad HDHVI 08:27
PROVIDERS: ATTEND Internal Medicine Cardiovascular Disease
DX: I25.10 Atherosclerotic heart disease of native coronary artery without angina pectoris (principal); I10 Essential (primary) hypertension; E11.9 Type 2 diabetes mellitus without complications; R06.02 Shortness of breath; E78.5 Hyperlipidemia, unspecified; Z82.49 Family history of ischemic heart disease and other diseases of the circulatory system
CPT/HCPCS: 78452; 93017; 96374; A9500

== ENCOUNTER → 2021-06-27 | Outpatient (CLI) | payer MEDICARE, BC | END | disposition home or self-care (01) | LOC: Rad HDHVI 11:09 | PROVIDERS: ATTEND Internal Medicine Cardiovascular Disease | DX: J32.9 Chronic sinusitis, unspecified (principal) | CPT/HCPCS: 70220 ==

== ENCOUNTER → 2021-07-07 | Outpatient (CLI) | payer MEDICARE, BC ==
[2021-07-07 11:26] LABS: Urine Blood Negative /uL (Negative); Urine Specific Gravity 1.031 (1.001-1.035)
[2021-07-07 11:27] LABS: Basophils # (auto) 0.1 10 ^3/uL (0-0.2); Basophils % (auto) 1.2 % (0.0-2.0); Eosinophils # (auto) 0.3 10 ^3/uL (0-0.8); Eosinophils % (auto) 4.6 % (0.0-7.0); Hematocrit 35.5 % (36.0-46.0); Hemoglobin 11.8 g/dL (12.2-16.2); Lymphocytes # (auto) 1.8 10 ^3/uL (0.4-5.4); Mean Corpuscular Hemoglobin 31.8 pg (28.0-32.0); Mean Corpuscular Hgb Conc. 33.4 g/dL (32.0-36.0); Mean Corpuscular Volume 95.1 fL (80.0-100.0); Monocytes # (auto) 0.4 10 ^3/uL (0-1.3); Monocytes % (auto) 7.3 % (0.0-12.0); Neutrophils # (auto) 3.5 10 ^3/uL (1.6-8.6); Neutrophils % (auto) 57.9 % (37.0-80.0); Red Blood Cells 3.73 10^6/uL (4.0-5.20); Red Cell Distribution Width 13.9 % (11.8-14.3); White Blood Cell 6.1 10^3/uL (4.4-10.8)
[2021-07-07 12:00] LABS: Albumin 3.7 g/dL (3.4-5.0); BUN/Creatinine Ratio 24.8; Bilirubin, Total 0.3 mg/dL (0.2-1.0); Calcium 9.4 mg/dL (8.5-10.1); Total Protein 7.6 g/dL (6.4-8.2)
[2021-07-07 13:40] LABS: Free T4 (Free Thyroxine) 1.11 ng/dL (0.89-1.76)
== END | disposition home or self-care (01) ==
LOC: Rad HDHVI 08:06
PROVIDERS: ATTEND Internal Medicine Cardiovascular Disease
DX: E11.9 Type 2 diabetes mellitus without complications (principal); D51.3 Other dietary vitamin B12 deficiency anemia; D64.9 Anemia, unspecified; E55.9 Vitamin D deficiency, unspecified; I10 Essential (primary) hypertension; R00.2 Palpitations; R53.1 Weakness; R30.0 Dysuria
CPT/HCPCS: 36415; 80053; 80061; 81003; 82306; 82607; 83036; 84439; 84443; 85025

== ENCOUNTER → 2021-12-04 | Outpatient (CLI) | payer MEDICARE, BC ==
[2021-12-04 11:37] LABS: Urine Blood TRACE /uL (Negative); Urine Specific Gravity 1.011 (1.001-1.035)
== END | disposition home or self-care (01) ==
LOC: LAB 10:36
PROVIDERS: ATTEND Internal Medicine
DX: N39.0 Urinary tract infection, site not specified (principal)
CPT/HCPCS: 81003; 87086; 87088; 87186

== ENCOUNTER → 2021-12-15 | Outpatient (CLI) | payer MEDICARE, BC ==
[~2021-12-15] VITALS: Ht 172.7 cm; Wt 66.4 kg
[~2021-12-15] MED LIST changes: +CEFTAZIDIME IV ONE; +D5W IV ONE; +SODIUM CHL 0.9% IV ONE
[2021-12-15 11:40] LABS: Urine Blood Negative /uL (Negative); Urine Specific Gravity 1.022 (1.001-1.035)
[2021-12-15 12:52] VITALS: BP 146/60
[2021-12-15 17:06] VITALS: BP 153/66
== END | disposition home or self-care (01) ==
LOC: LAB 09:27
PROVIDERS: ATTEND Internal Medicine
DX: N39.0 Urinary tract infection, site not specified (principal); I50.9 Heart failure, unspecified
CPT/HCPCS: 81003; 87086; 96365; 96366; G0463; J0713

== ENCOUNTER → 2022-01-13 | Outpatient (CLI) | payer MEDICARE, BC ==
[~2022-01-13] MED LIST changes: -CEFTAZIDIME IV ONE; -D5W IV ONE; -SODIUM CHL 0.9% IV ONE; +cefTAZidime 1 GM in SODIUM CHL 0.9% 50 ML IV ONE; +cefTAZidime 1GM/50ML D5W 50 ML IV ONE
[2022-01-13 09:21] VITALS: BP 155/54
[2022-01-13 12:15] VITALS: BP 134/58
[2022-01-13 13:01] LABS: Urine Blood Negative /uL (Negative); Urine Specific Gravity 1.019 (1.001-1.035)
== END | disposition home or self-care (01) ==
LOC: CHF HDHVI 08:57
PROVIDERS: ATTEND Internal Medicine Cardiovascular Disease
DX: N39.0 Urinary tract infection, site not specified (principal); R79.89 Other specified abnormal findings of blood chemistry; R94.4 Abnormal results of kidney function studies; I50.9 Heart failure, unspecified
CPT/HCPCS: 36415; 81003; 82565; 84520; 87086; 87088; 87186; 96365; 96366; G0463; J0713

== ENCOUNTER → 2022-01-15 | Outpatient (CLI) | payer MEDICARE, BC ==
[~2022-01-15] MED LIST changes: +READI-CAT 2 (BARIUM SULF)(VANILLA SMOOTHIE) 450ML ONE; +SODIUM CHLORIDE 0.9% 500 ML IV ONE; -cefTAZidime 1 GM in SODIUM CHL 0.9% 50 ML IV ONE; -cefTAZidime 1GM/50ML D5W 50 ML IV ONE
[2022-01-15 09:05] VITALS: BP 162/56
[2022-01-15 12:15] VITALS: BP 157/58
== END | disposition home or self-care (01) ==
LOC: Rad HDHVI 08:59
PROVIDERS: ATTEND Internal Medicine Cardiovascular Disease
DX: E86.0 Dehydration (principal); C67.9 Malignant neoplasm of bladder, unspecified; N39.0 Urinary tract infection, site not specified; I50.9 Heart failure, unspecified
CPT/HCPCS: 74176; G0463; J7040; 96360; 96361

== ENCOUNTER → 2022-03-20 | Outpatient (CLI) | payer MEDICARE, BC ==
[~2022-03-20] MED LIST changes: -READI-CAT 2 (BARIUM SULF)(VANILLA SMOOTHIE) 450ML ONE; -SODIUM CHLORIDE 0.9% 500 ML IV ONE
[2022-03-20 11:08] VITALS: BP 130/68
[2022-03-20 11:51] VITALS: BP 149/68
== END | disposition home or self-care (01) ==
LOC: CHF HDHVI 11:08
PROVIDERS: ATTEND Internal Medicine Cardiovascular Disease
DX: E11.9 Type 2 diabetes mellitus without complications (principal); Z13.1 Encounter for screening for diabetes mellitus
CPT/HCPCS: G0463

== ENCOUNTER → 2022-04-06 | Outpatient (CLI) | payer MEDICARE, BC ==
[~2022-04-06] VITALS: Ht 172.7 cm; Wt 66.7 kg
== END | disposition home or self-care (01) ==
LOC: Rad HDHVI 08:18
PROVIDERS: ATTEND Internal Medicine Cardiovascular Disease
DX: I25.10 Atherosclerotic heart disease of native coronary artery without angina pectoris (principal); R07.9 Chest pain, unspecified; R06.02 Shortness of breath; I10 Essential (primary) hypertension; E78.5 Hyperlipidemia, unspecified; E11.9 Type 2 diabetes mellitus without complications; E78.00 Pure hypercholesterolemia, unspecified; R00.2 Palpitations; Z79.899 Other long term (current) drug therapy; Z82.49 Family history of ischemic heart disease and other diseases of the circulatory system
CPT/HCPCS: 78452; 93017; 96374; A9500

== ENCOUNTER → 2022-04-10 | Outpatient (CLI) | payer MEDICARE, BC ==
[2022-04-10 17:08] LABS: Urine Blood Negative /uL (Negative); Urine Specific Gravity 1.019 (1.001-1.035)
== END | disposition home or self-care (01) ==
LOC: LAB 10:46
PROVIDERS: ATTEND Internal Medicine Cardiovascular Disease
DX: N39.0 Urinary tract infection, site not specified (principal)
CPT/HCPCS: 81003; 87086

== ENCOUNTER → 2022-09-30 | Outpatient (CLI) | payer MEDICARE, BC | END | disposition home or self-care (01) | LOC: Rad HDHVI 11:02 | PROVIDERS: ATTEND Internal Medicine Cardiovascular Disease | DX: R51.9 Headache, unspecified (principal) | CPT/HCPCS: 70450 ==

== ENCOUNTER → 2022-12-25 | Outpatient (CLI) | payer MEDICARE, BC ==
[~2022-12-25] MED LIST changes: +BENA-36 PO; -BENA20TA14 PO; -PROP10TA57 PO; +PROP1TAB51 PO; +SIMV10TA20 PO; -SIMV10TA84 PO
== END | disposition home or self-care (01) ==
LOC: Rad HDHVI 13:56
PROVIDERS: ATTEND Internal Medicine Cardiovascular Disease
DX: M16.0 Bilateral primary osteoarthritis of hip (principal)
CPT/HCPCS: 73562

== ENCOUNTER → 2023-01-04 | Outpatient (CLI) | payer MEDICARE, BC | END | disposition home or self-care (01) | LOC: Rad HDHVI 13:59 | PROVIDERS: ATTEND Internal Medicine Cardiovascular Disease | DX: I70.213 Atherosclerosis of native arteries of extremities with intermittent claudication, bilateral legs (principal); E78.5 Hyperlipidemia, unspecified | CPT/HCPCS: 93925 ==

== ENCOUNTER → 2023-02-10 | Outpatient (CLI) | payer MEDICARE, BC ==
[~2023-02-10] MED LIST changes: +BACL10TA PO; +BENA40TA83 PO; +CHOL50007 PO; +FURO20TA3 PO; +GABA-1250 PO; +LORA-205 PO; +OMEP-448 PO; +POTA-180 PO; +SIMV20TA20 PO
[2023-02-10 10:22] VITALS: BP 170/74; PULSE 72; RESP 16; O2SAT 94
[2023-02-10 10:53] VITALS: BP 165/71; PULSE 70; RESP 16; O2SAT 94
== END | disposition home or self-care (01) ==
LOC: CHF HDHVI 09:59
PROVIDERS: ATTEND Internal Medicine Cardiovascular Disease
DX: Z01.818 Encounter for other preprocedural examination (principal); I73.9 Peripheral vascular disease, unspecified; E11.59 Type 2 diabetes mellitus with other circulatory complications; R06.02 Shortness of breath
CPT/HCPCS: 36415; 80053; 85025; 85610; 85730; 93005; G0463

== ENCOUNTER 2023-02-11 08:58 | Day surgery (SDC) | payer MEDICARE, BC ==
[2023-02-10 11:51] LABS: Basophils # (auto) 0.1 10 ^3/uL (0-0.2); Eosinophils % (auto) 4.8 % (0.0-7.0); Hemoglobin 11.1 g/dL (12.2-16.2); Mean Corpuscular Hgb Conc. 33.5 g/dL (32.0-36.0); Neutrophils # (auto) 3.9 10 ^3/uL (1.6-8.6)
[2023-02-10 11:54] LABS: Basophils % (auto) 1.8 % (0.0-2.0); Eosinophils # (auto) 0.4 10 ^3/uL (0-0.8); Lymphocytes # (auto) 2.4 10 ^3/uL (0.4-5.4); Lymphocytes % (auto) 32.5 % (10.0-50.0); Mean Corpuscular Hemoglobin 31.8 pg (28.0-32.0); Mean Corpuscular Volume 94.8 fL (80.0-100.0); Monocytes # (auto) 0.6 10 ^3/uL (0-1.3); Monocytes % (auto) 7.9 % (0.0-12.0); Red Blood Cells 3.48 10^6/uL (4.0-5.20); White Blood Cell 7.5 10^3/uL (4.4-10.8)
[2023-02-10 12:04] LABS: INR 0.98 (0.9-1.15); Partial Thromboplastin Time 26.5 SEC (24.5-34.5); Prothrombin Time 10.3 sec (9.3-11.8)
[2023-02-10 12:21] LABS: Alanine Aminotransferase 24 U/L (7-40); Albumin 5.2 g/dL (3.2-4.8); Alkaline Phosphatase 52 U/L (46-116); Anion Gap 4 (5-15); Aspartate Aminotransferase 21 U/L (13-40); BUN/Creatinine Ratio 19.7 (10.0-20.0); Bilirubin, Total 0.3 mg/dL (0.2-1.0); Blood Urea Nitrogen 28 mg/dL (9-23); Calcium 9.7 mg/dL (8.7-10.4); Carbon Dioxide 29 mmol/L (20-30); Chloride 105 mmol/L (98-107); Glucose 156 mg/dL (74-106); Sodium 138 mmol/L (136-145); Total Protein 7.8 g/dL (5.7-8.2)
[~2023-02-11] VITALS: Ht 172.7 cm; Wt 66.2 kg
[~2023-02-11 08:58] MED LIST changes: -ALPR0.25 PO; -ASPI-543 PO; -BENA40TA83 PO; -CANA100T PO; -CLOP75TA28 PO; -EZET10TA22 PO; -OMEP-448 PO; -SIMV20TA20 PO; -TEMA30CA PO
[2023-02-11] MEDS ORDERED: ANGIOMAX 250 MG VIAL IV ONE (11:50)
[2023-02-11] MEDS ORDERED: fentaNYL CITRATE 100 MCG/2 ML VL ONE (11:51)
[2023-02-11] MEDS ORDERED: IOHEXOL 350 MG/ML 100ML IJ ONE (11:51)
[2023-02-11] MEDS ORDERED: LIDOCAINE 2%HCL (LOCAL ANESTH.) INJ 20ML MDV ONE (11:51)
[2023-02-11] MEDS ORDERED: SODIUM CHL 0.9% 0 ML ONE (11:51)
[2023-02-11] MEDS ORDERED: MIDAZOLAM HCL 2MG/2ML 2ml VIAL (1mg/ml) ONE (11:51)
[2023-02-11] MEDS ORDERED: NITROGLYCERIN 0.4MG/DOSE SPRAY 4.9GM ONE (12:24)
[2023-02-11] MEDS ORDERED: cloNIDine HCL 0.1 MG TAB ONE (12:38)
[2023-02-11] MEDS ORDERED: LORazepam 2MG/ML-1ML VIAL ONE (12:38)
[2023-02-11] MEDS ORDERED: HYDROcodone-ACET 5/325MG TAB PO ONE (13:40)
[2023-02-11] MEDS ORDERED: HYDROcodone-ACET 5/325MG TAB ONE (13:46)
[2023-02-11] MEDS ORDERED: SIMV20TA20 PO (14:34)
[2023-02-11] MEDS ORDERED: BENA40TA83 PO (14:34)
[2023-02-11] MEDS ORDERED: OMEP-448 PO (14:34)
== END 2023-02-11 15:15 | disposition home or self-care (01) ==
LOC: CATH 08:58
PROVIDERS: ATTEND Internal Medicine Cardiovascular Disease
DX: E11.51 Type 2 diabetes mellitus with diabetic peripheral angiopathy without gangrene (principal); I70.201 Unspecified atherosclerosis of native arteries of extremities, right leg; I10 Essential (primary) hypertension; E11.21 Type 2 diabetes mellitus with diabetic nephropathy; E11.40 Type 2 diabetes mellitus with diabetic neuropathy, unspecified; Z79.84 Long term (current) use of oral hypoglycemic drugs; Z79.899 Other long term (current) drug therapy
CPT/HCPCS: 36247; 36415; 75716; 80053; 82962; 85025; 85610; 85730; C1769; C1894; J1644; J2250; J3010; Q9967; 99152

== ENCOUNTER → 2023-03-05 | Outpatient (CLI) | payer MEDICARE, BC ==
[~2023-03-05] MED LIST changes: -BENA-36 PO; +BENA40TA83 PO; +IOHEXOL 350 MG/ML 100ML IJ ONE; -OME20T PO; +OMEP-448 PO; -SIMV10TA20 PO; +SIMV20TA20 PO
[2023-03-05 14:38] VITALS: BP 160/76; PULSE 74; RESP 16; O2SAT 95
[2023-03-05 15:12] VITALS: BP 152/61; PULSE 77; RESP 16; O2SAT 95
== END | disposition home or self-care (01) ==
LOC: Rad HDHVI 14:20
PROVIDERS: ATTEND Internal Medicine Cardiovascular Disease
DX: I70.201 Unspecified atherosclerosis of native arteries of extremities, right leg (principal); I70.202 Unspecified atherosclerosis of native arteries of extremities, left leg; I70.291 Other atherosclerosis of native arteries of extremities, right leg; I25.10 Atherosclerotic heart disease of native coronary artery without angina pectoris; K80.20 Calculus of gallbladder without cholecystitis without obstruction; M51.36 Other intervertebral disc degeneration, lumbar region
CPT/HCPCS: 75635; G0463; Q9967

== ENCOUNTER → 2023-05-19 | Outpatient (CLI) | payer MEDICARE, BC ==
[~2023-05-19] MED LIST changes: -IOHEXOL 350 MG/ML 100ML IJ ONE
== END | disposition home or self-care (01) ==
LOC: Rad HDHVI 10:45
PROVIDERS: ATTEND Internal Medicine Cardiovascular Disease
DX: I70.203 Unspecified atherosclerosis of native arteries of extremities, bilateral legs (principal); M79.604 Pain in right leg
CPT/HCPCS: 93925

== ENCOUNTER → 2023-06-28 | Outpatient (CLI) | payer MEDICARE, BC ==
[~2023-06-28] MED LIST changes: +CLON0.1T PO; +CLOP75TA28 PO; +CYAN1TAB11 PO
[2023-06-28 10:55] VITALS: BP 144/64; PULSE 87; RESP 16; O2SAT 96
[2023-06-28 11:17] VITALS: BP 118/55; PULSE 84; RESP 16; O2SAT 96
== END | disposition home or self-care (01) ==
LOC: CHF HDHVI 10:43
PROVIDERS: ATTEND Internal Medicine Cardiovascular Disease
DX: Z01.818 Encounter for other preprocedural examination (principal); I73.9 Peripheral vascular disease, unspecified
CPT/HCPCS: 93005; G0463

== ENCOUNTER 2023-07-01 07:25 | Day surgery (SDC) | payer MEDICARE, BC ==
[2023-06-28 12:10] LABS: Basophils # (auto) 0.1 10 ^3/uL (0-0.2); Basophils % (auto) 1.3 % (0.0-2.0); Eosinophils # (auto) 0.5 10 ^3/uL (0-0.8); Hemoglobin 11.1 g/dL (12.2-16.2); Lymphocytes # (auto) 1.9 10 ^3/uL (0.4-5.4); Mean Corpuscular Hgb Conc. 33.1 g/dL (32.0-36.0); Monocytes # (auto) 0.7 10 ^3/uL (0-1.3)
[2023-06-28 12:12] LABS: Eosinophils % (auto) 5.2 % (0.0-7.0); Hematocrit 33.5 % (36.0-46.0); Lymphocytes % (auto) 21.2 % (10.0-50.0); Mean Corpuscular Hemoglobin 31.4 pg (28.0-32.0); Mean Corpuscular Volume 94.8 fL (80.0-100.0); Monocytes % (auto) 7.5 % (0.0-12.0); Neutrophils # (auto) 5.7 10 ^3/uL (1.6-8.6); Neutrophils % (auto) 64.8 % (37.0-80.0); Nucleated Red Blood Cells % 0.1 %; Red Blood Cells 3.53 10^6/uL (4.0-5.20); Red Cell Distribution Width 14.2 % (11.8-14.3); White Blood Cell 8.8 10^3/uL (4.4-10.8)
[2023-06-28 12:24] LABS: INR 0.98 (0.9-1.15); Partial Thromboplastin Time 27.1 SEC (24.5-34.5); Prothrombin Time 10.3 sec (9.3-11.8)
[2023-06-28 12:45] LABS: Chloride 105 mmol/L (98-107); Potassium 5.3 mmol/L (3.5-5.1); Sodium 139 mmol/L (136-145)
[2023-06-28 12:46] LABS: Anion Gap 8 (5-15); Calcium 10.1 mg/dL (8.5-10.1); Carbon Dioxide 26 mmol/L (20-30)
[2023-06-28 12:51] LABS: Blood Urea Nitrogen 31 mg/dL (9-23); Glucose 105 mg/dL (74-106)
[~2023-07-01] VITALS: Ht 172.7 cm; Wt 65.8 kg
[~2023-07-01 07:25] MED LIST changes: -CLOP75TA28 PO
[2023-07-01] MEDS ORDERED: LIDOCAINE 1% HCL (LOCAL ANESTH.) INJ 20ML MDV ONE (10:54)
[2023-07-01] MEDS ORDERED: IODIXANOL 320MG/ML 100ML BTL IV ONE (10:54)
[2023-07-01] MEDS ORDERED: ANGIOMAX 250 MG VIAL IV ONE (10:54)
[2023-07-01] MEDS ORDERED: SODIUM CHL 0.9% 50 ML ONE (10:54)
[2023-07-01] MEDS ORDERED: MIDAZOLAM HCL 2MG/2ML 2ml VIAL (1mg/ml) ONE (10:54)
[2023-07-01] MEDS ORDERED: fentaNYL CITRATE 100 MCG/2 ML VL ONE (10:54)
[2023-07-01] MEDS ORDERED: diphenhdrAMINE HCL 50 MG/1 ML VL ONE (11:29)
[2023-07-01] MEDS ORDERED: HYDROmorphone HCL 2 MG/ML VL/or syr ONE (11:38)
[2023-07-01] MEDS ORDERED: CLOPIDOGREL BISULFATE 75 MG TAB ONE ×2 (12:00→12:03)
[2023-07-01] MEDS ORDERED: CLOP75TA28 PO (13:30)
[2023-07-01] MEDS: HYDROcodone-ACET 5/325MG TAB ONE (15:02)
== END 2023-07-01 15:25 | disposition home or self-care (01) ==
LOC: CATH 07:25
PROVIDERS: ATTEND Internal Medicine Cardiovascular Disease
DX: E11.51 Type 2 diabetes mellitus with diabetic peripheral angiopathy without gangrene (principal); I70.213 Atherosclerosis of native arteries of extremities with intermittent claudication, bilateral legs; I10 Essential (primary) hypertension; E78.5 Hyperlipidemia, unspecified; E11.40 Type 2 diabetes mellitus with diabetic neuropathy, unspecified; E11.21 Type 2 diabetes mellitus with diabetic nephropathy; Z79.02 Long term (current) use of antithrombotics/antiplatelets; Z79.899 Other long term (current) drug therapy; Z79.84 Long term (current) use of oral hypoglycemic drugs
CPT/HCPCS: 75716; C1725; C1769; C1887; C1894; C9766; C9774; J0583; J1170; J1200; J1644; J2001; J2250; J3010; J7030; Q9967; 36415; 80048; 85025; 85610; 85730; 99152

== ENCOUNTER 2023-07-05 09:56 | Emergency (ER) | payer MEDICARE, BC ==
[~2023-07-05] VITALS: Ht 172.7 cm; Wt 65.9 kg
[~2023-07-05 09:56] MED LIST changes: +CLOP75TA28 PO
[2023-07-05 12:12] LABS: Basophils # (auto) 0.1 10 ^3/uL (0-0.2); Basophils % (auto) 1.5 % (0.0-2.0); Eosinophils # (auto) 0.7 10 ^3/uL (0-0.8); Eosinophils % (auto) 8.3 % (0.0-7.0); Hematocrit 30.5 % (36.0-46.0); Hemoglobin 10.2 g/dL (12.2-16.2); Lymphocytes # (auto) 1.8 10 ^3/uL (0.4-5.4); Lymphocytes % (auto) 21.8 % (10.0-50.0); Mean Corpuscular Hemoglobin 31.5 pg (28.0-32.0); Mean Corpuscular Hgb Conc. 33.4 g/dL (32.0-36.0); Mean Corpuscular Volume 94.3 fL (80.0-100.0); Monocytes # (auto) 0.5 10 ^3/uL (0-1.3); Monocytes % (auto) 5.8 % (0.0-12.0); Neutrophils # (auto) 5.3 10 ^3/uL (1.6-8.6); Neutrophils % (auto) 62.6 % (37.0-80.0); Nucleated Red Blood Cells % 0.1 %; Red Blood Cells 3.24 10^6/uL (4.0-5.20); Red Cell Distribution Width 14.4 % (11.8-14.3); White Blood Cell 8.5 10^3/uL (4.4-10.8)
[2023-07-05 12:21] LABS: Chloride 107 mmol/L (98-107); Potassium 4.7 mmol/L (3.5-5.1); Sodium 139 mmol/L (136-145)
[2023-07-05 12:22] LABS: Anion Gap 6 (5-15); Carbon Dioxide 26 mmol/L (20-30)
[2023-07-05 12:23] LABS: Calcium 9.7 mg/dL (8.5-10.1)
[2023-07-05 12:25] LABS: INR 0.98 (0.9-1.15); Prothrombin Time 10.3 sec (9.3-11.8)
[2023-07-05 12:27] LABS: BUN/Creatinine Ratio 16.7 (10.0-20.0); Blood Urea Nitrogen 27 mg/dL (9-23); Glucose 143 mg/dL (74-106)
[2023-07-05 13:36] LABS: Urine Bacteria NONE SEEN /hpf (None Seen); Urine Blood Negative /uL (Negative); Urine Clarity Clear (Clear); Urine Color Yellow (Yellow); Urine Hyaline Cast FEW /lpf (0 - 2); Urine Mucus FEW (None Seen); Urine Protein, UAD TRACE (Negative); Urine Specific Gravity 1.022 (1.001-1.035); Urine Urobilinogen Normal (Negative); Urine WBC 12 /hpf (0 - 5); Urine pH 5.5 (5.0-8.0)
[2023-07-05 14:23] VITALS: BP 130/86; PULSE 81; RESP 19; TEMP 98.1; O2SAT 96
== END 2023-07-05 14:26 | disposition home or self-care (01) ==
LOC: ER 09:56
DX: I77.1 Stricture of artery (principal); I10 Essential (primary) hypertension; I25.10 Atherosclerotic heart disease of native coronary artery without angina pectoris; E11.9 Type 2 diabetes mellitus without complications; K21.9 Gastro-esophageal reflux disease without esophagitis; E78.5 Hyperlipidemia, unspecified; Z98.890 Other specified postprocedural states; Z88.8 Allergy status to other drugs, medicaments and biological substances; Z79.899 Other long term (current) drug therapy
CPT/HCPCS: 36415; 73610; 73630; 80048; 81001; 85025; 85610; 93926; 93971

== ENCOUNTER → 2024-04-05 | Outpatient (CLI) | payer MEDICARE, BC | END | disposition home or self-care (01) | LOC: Rad HDHVI 09:53 | PROVIDERS: ATTEND Internal Medicine Cardiovascular Disease | DX: I73.9 Peripheral vascular disease, unspecified (principal); I50.33 Acute on chronic diastolic (congestive) heart failure | CPT/HCPCS: 93925 ==

== ENCOUNTER → 2024-06-05 | Outpatient (CLI) | payer MEDICARE, BC ==
--- NOTE | 2024-06-05 17:00 | DVHSR ---
APPROVED REPORT EXAM: Two-dimensional and M-mode echocardiogram with Doppler and color Doppler. DIMENSIONS LVDd4.0 (3.8-5.7cm)LA (2D)5.6 (1.9-4.0cm)Aortic Root3.0 (2.0-3.7cm) LVDs2.4 (2.5-4.0cm)LA (MM) (1.9-4.0cm)Aortic Cusp Exc1.4 (1.5-2.0cm) EF (%) 69.0 (55-70%)Rt. Atrium3.5 (1.9-4.0cm)Asc. Aorta3.5 cm IVSd1.2 (0.7-1.1cm)RV (D)3.8 (1.8-2.4cm) PWd1.2 (0.7-1.1cm) Mitral Valve MitralMitral Stenosis E wave1.41m/sMV Mean GR.4mmHg A wave1.61m/sMV Peak GR.113mmHg E/A ratio0.92D MVAcm2 DECEL [id number] 1/2 [id number] IVRTmsDop MVA2.48cm2 Aortic Valve Aortic ValveAortic Stenosis V10.98m/[place] Mean GR.3mmHg V21.31m/[place] Peak GR.7mmHg Pulmonic Valve V20.93m/s Tricuspid Valve TR Velocity1.87m/s [id number] LEFT VENTRICLE The Ejection Fraction is >55%. ATRIA The left atrium is mildly dilated. The right atrium size is normal. MITRAL VALVE Mitral annular calcification is moderate. Mitral regurgitation is moderate. PULMONIC VALVE The pulmonic valve is not well visualized. There is mild pulmonic valvular regurgitation. TRICUSPID VALVE The tricuspid valve is grossly normal. There is trace tricuspid regurgitation. AORTIC VALVE The aortic valve is mildlysclerotic. GREAT VESSELS The aortic root is normal size. PERICARDIAL EFFUSION There is no pericardial effusion. Other Information Technically limited study due to body habitus. Conclusion LVH LAE EF >60% MOD MR MILD MAC MILD PI MILD AV SCLEROSIS
== END | disposition home or self-care (01) ==
LOC: Rad HDHVI 13:45
PROVIDERS: ATTEND Internal Medicine Cardiovascular Disease
DX: I08.8 Other rheumatic multiple valve diseases (principal); I10 Essential (primary) hypertension; I73.9 Peripheral vascular disease, unspecified
CPT/HCPCS: 93306

== ENCOUNTER → 2024-06-06 | Outpatient (CLI) | payer MEDICARE, BC ==
[~2024-06-06] VITALS: Ht 172.7 cm; Wt 67.1 kg
[~2024-06-06] MED LIST changes: +cloNIDine HCL 0.1 MG TAB ONE
== END | disposition home or self-care (01) ==
LOC: Rad HDHVI 08:46
PROVIDERS: ATTEND Internal Medicine Cardiovascular Disease
DX: I11.0 Hypertensive heart disease with heart failure (principal); I50.33 Acute on chronic diastolic (congestive) heart failure; I25.10 Atherosclerotic heart disease of native coronary artery without angina pectoris; I73.9 Peripheral vascular disease, unspecified; E78.00 Pure hypercholesterolemia, unspecified; E11.21 Type 2 diabetes mellitus with diabetic nephropathy; E11.40 Type 2 diabetes mellitus with diabetic neuropathy, unspecified; U07.1 COVID-19; I27.21 Secondary pulmonary arterial hypertension; R06.02 Shortness of breath; R07.89 Other chest pain; Z82.49 Family history of ischemic heart disease and other diseases of the circulatory system
CPT/HCPCS: 78452; 93017; 96374; A9500

== ENCOUNTER → 2024-06-19 | Outpatient (CLI) | payer MEDICARE, BC ==
[~2024-06-19] MED LIST changes: -cloNIDine HCL 0.1 MG TAB ONE
[2024-06-19 09:20] VITALS: BP 175/69; PULSE 90; RESP 16; O2SAT 96
[2024-06-19] MEDS: GENTAMICIN SULFATE 4 ML ONE (09:21)
[2024-06-19] MEDS: GENTAMICIN SULFATE 160 MG in D5W 5% 100 ML IV ONE (09:30)
[2024-06-19 10:35] VITALS: BP 157/59; PULSE 75; RESP 16; O2SAT 96
== END | disposition home or self-care (01) ==
LOC: CHF HDHVI 09:03
PROVIDERS: ATTEND Internal Medicine Cardiovascular Disease
DX: N39.0 Urinary tract infection, site not specified (principal); I11.0 Hypertensive heart disease with heart failure; I50.9 Heart failure, unspecified; E11.9 Type 2 diabetes mellitus without complications; I25.10 Atherosclerotic heart disease of native coronary artery without angina pectoris
CPT/HCPCS: 96365; G0463; J1580

== ENCOUNTER → 2024-09-20 | Outpatient (CLI) | payer MEDICARE, BC ==
--- NOTE | 2024-09-20 16:05 | DVH ---
CT LS SPINE WO CONTRAST Date: 09/20/2024 03:09 PM History: LBP Comparison: None TECHNIQUE: Multiple axial CT images of the lumbosacral spine were obtained using bone algorithm. Axial and coron al reformatting was done. Bone and soft tissue windows were reviewed. Radiation Dose Information: CT Dose: CTDI volume is 17.5 mGy. Dose-length product is 429.22 mGy*cm FINDINGS: No CT evidence of definite acute fracture, spinal dislocation, or significant appearing acute subluxa tion is seen. The visualized paraspinal soft tissues are grossly unremarkable. T12-L1 There is no evidence of central spinal canal or neuroforaminal stenosis. L1-L2 There is no evidence of central spinal canal or neuroforaminal stenosis. L2-L3 There is no evidence of central spinal canal or neuroforaminal stenosis. L3-L4 There is no evidence of central spinal canal or neuroforaminal stenosis. L4-L5 There is no evidence of central spinal canal or neuroforaminal stenosis. L5-S1 There is no evidence of central spinal canal or neuroforaminal stenosis. IMPRESSION: 1. No definite CT evidence of acute fracture or dislocation of the bony lumbar spine. 2. Degenerative disc changes with vacuum disc phenomenon at L5-S1. 3. All CT scans at this medical facility are performed using dose modulation techniques as appropriate to a performed exam including the following: Automated exposure control was utilized; adjustment of t he MA and/or KV according to patient size; and use of iterative reconstruction technique.
== END | disposition home or self-care (01) ==
LOC: Rad HDHVI 15:11
PROVIDERS: ATTEND Internal Medicine Cardiovascular Disease
DX: S33.100A Subluxation of unspecified lumbar vertebra, initial encounter (principal); M54.50 Low back pain, unspecified; X58.XXXA Exposure to other specified factors, initial encounter; Y93.89 Activity, other specified; Y92.89 Other specified places as the place of occurrence of the external cause; Y99.8 Other external cause status
CPT/HCPCS: 72131; 93925

== ENCOUNTER 2025-01-16 01:39 | Inpatient (IN) | payer MEDICARE, BC ==
[~2025-01-16] VITALS: Ht 172.7 cm; Wt 70.1 kg
--- NOTE | 2025-01-16 03:38 | DVH ---
CLINICAL INDICATION: fall TECHNIQUE: 2 views of each ankle XY R ANKLE 2 VIEW XRAY, XY L ANKLE 2 VIEW XRAY Comparison: Right foot and ankle radiographs 07/05/2023 FINDINGS: No evidence of acute fracture or traumatic joint malalignment. Diffuse osteopenia. Corticated minera lized densities at the medial malleoli compatible with remote trauma. Small calcaneal enthesophytes. Mild polyarticular osteoarthrosis. No acute soft tissue abnormality. IMPRESSION: 1. No acute osseous finding of the ankles.
[2025-01-16] MEDS: ACETAMINOPHEN 500 MG TAB or CAP PO STA (04:30)
--- NOTE | 2025-01-16 04:31 | ED.PDOC ---
History of Present Illness HPI Comments Vitals: temperature 98.6F pulse 90 respiratory rate 18 blood pressure 169/62 SpO2 96%RA Past medical history: severe bilateral neuropathy, DM, CAD, Past surgical history: PTCA BHATTI: HPI: Poor Historian. 79-year-old female brought in by ambulance for evaluation of near syncopal episode. Patient had an episode of diarrhea and while trying to stand up from the toilet felt very lightheaded and almost blacked out but did not fully. She was able to grab on to the bar and assist herself to the ground. Diarrhea was one episode that was brown and has resolved prior to my evaluation. Denies any associated abdominal pain nausea or vomiting. Patient has history of severe bilateral neuropathy that affects her ambulation in general. Patient has tramadol at home but does not use it she only uses Tylenol for uropathy leg pain. Patient denies any focal neurological deficits. Denies any headache. Denies any head injury. Past Medical History: Past Surgical History: REVIEW OF SYSTEMS: CONSTITUTIONAL: Denies acute: fever, diaphoresis, chills, HEAD: Denies acute: headache, photophobia Eyes: Denies acute: Double vision, vision loss, eye pain, eye discharge. EARS: Denies acute: tinnitus, hearing loss, ear discharge, ear pain, THROAT: Denies acute: sore throat, swelling, difficulty swallowing , pain with swallowing, change in voice. NECK: Denies acute: neck pain, neck swelling, stiff neck. HEART: Denies acute : chest pain, palpitations, LUNGS: Denies acute: SOB, wheezing, cough, hemoptysis ABDOMEN: Denies acute: abdominal pain, Nausea, Vomiting, melena , hematemesis, hematochezia SKIN: Denies acute: rash, redness, lesions, itchiness. EXTREMITIES: Denies acute: calf pain, numbness, tingling, weakness, denies pain in extremity. Denies acute: Low back pain. Neuro: Denies acute: focal neurological deficit, motor or sensory focal neurological deficit, tremors, seizure like activity, confusion, change in mental status, loss of bowel or bladder function, cauda equina like symptoms. : Denies acute: dysuria, hematuria, flank pain, increase in urinary frequency. PSYCH: Denies acute: hallucination, suicidal ideation, homicidal ideation. FEMALE: Denies acute: abnormal vaginal bleeding, foul odor, unusual discharge. PHYSICAL EXAM: General: -----mild---acute distress, awake and alert. Head: normocephalic, atraumatic. Neck: supple, trachea is midline, no swelling. Throat: Normal phonation. Eyes:, no erythema, no purulent discharge, no proptosis, no icterus. Heart: regular rate, regular rhythm, no significant murmur appreciated. Lungs: no apparent respiratory distress, Able to speak in full sentences. No wheezing, no rhonchi, no crackles. No stridors Clear to auscultation bilaterally. Abdomen: non tender to palpation, non distended, soft, no guarding, no rebound, + bowel sounds. Neuro: Awake, Alert, oriented to name, self, situation, follows commands GCS=15. Speech is normal. Skin: no petechia, no purpura, no cyanosis, non-pale, not jaundice. Lower extremities: --no - Pitting edema no deformity, no focal swelling, no calf TTP. Mild bilateral lateral malleoli eyes tenderness to palpation without apparent significant swelling or deformity. Makes eye contact. moves all four extremities. Face: no apparent facial droop. Ambulating in the ED at baseline. , Pedal pulses are palpable. ED COURSE: DISCLAIMER: This medical document was created using an electronic medical record system with voice recognition software and computerized dictation system. Although this document has been carefully reviewed, there might still be some phonetic and typographical errors. Occasional wrong-word or "sound-alike" substitutions may have occurred due to the inherent limitations of voice recognition software. These areas are purely typographical due to imperfections of the software programs and do not reflect any compromise in the patient's medical care. Please read the chart carefully and recognize, using context, where these substitutions have occurred. Chief Complaint: Lower Extremity Time Seen by MD: 04:20 Reviewed Notes: Allergies Allergies: Coded Allergies: Penicillins (Verified Allergy, Intermediate, RASH, 06/28/23) Sulfa Antibiotics (Verified Allergy, Unknown, STOMACH UPSET, 06/28/23) Home Meds Active Scripts Cephalexin (KEFLEX CAPSULE) 250 Mg Cp, 2 CAP PO BID for 5 Days, #20 CAP Prov:ALYX POSADAS MD 01/20/25 Docusate Sodium (Docusate Sodium) 100 Mg Cap, 100 MG PO BID for 30 Days, #60 CAP 0 Refills Prov:ALYX POSADAS MD 01/20/25 Lactulose (Lactulose) 10 Gm/15 Ml Sariah, 10 GM PO DAILY for 7 Days, #100 ML 0 Refills Prov:ALYX POSADAS MD 01/20/25 Sodium Zirconium Cyclosilicate (Lokelma) 10 Gm Brian, 10 GM PO DAILY for 14 Days, #14 PACK 0 Refills Prov:ALYX POSADAS MD 01/20/25 Reported Medications Tramadol Hcl (Tramadol Hcl) 50 Mg Tab, 100 MG PO BID PRN, TAB 01/16/25 Ezetimibe (Ezetimibe) 10 Mg Tab, 0.5 TAB PO DAILY 01/16/25 Benazepril Hcl (Benazepril Hcl) 40 Mg Tab, 1 TAB PO DAILY 01/16/25 Clopidogrel Bisulfate (Plavix) 75 Mg Tab, 1 TAB PO DAILY for ANGIOPLASTY/BLOOD THINNER 07/01/23 Cyanocobalamin (Vitamin B12) 1,000 Mcg Tab, 1000 MCG PO DAILY, TAB 06/28/23 Clonidine Hydrochloride (Clonidine Hcl) 0.1 Mg Tab, 0.1 MG PO BID for B/P SYS >160, MG 06/28/23 Baclofen (Baclofen) 10 Mg Tab, 20 MG PO HS PRN for FOR MUSCLE SPASM, MG 06/28/23 Omeprazole (Omeprazole Dr) 40 Mg Cap, 1 CAP PO DAILY for GERD 02/11/23 Simvastatin (Simvastatin) 20 Mg Tab, 1 TAB PO QPM for HIGH CHOLESTEROL 02/11/23 Lorazepam (Ativan) 1 Mg Tab, 1 TAB PO HS PRN for INSOMNIA 02/10/23 Gabapentin (Gabapentin) 300 Mg Cap, 1 CAP PO TID PRN for NEUROPATHY 02/10/23 Cholecalciferol (VITAMIN D3) 5,000 Unit Cap, 1 CAP PO DAILY for SUPPLEMENT 02/10/23 Potassium Chloride (Potassium Chloride ER) 20 Meq Tab, 1 TAB PO DAILYPRN for WHEN TAKING LASIX 02/10/23 Furosemide (Furosemide) 20 Mg Tab, 1 TAB PO DAILY PRN for PERIPHERAL EDEMA 02/10/23 Magnesium Oxide (MAGNESIUM OXIDE) 400 Mg Tab, 1 TAB PO DAILY for SUPPLEMENT 12/19/18 Sitagliptin Phosphate (Januvia) 100 Mg Tab, 1 TAB PO QPM for DIABETES HOLD MEDICATION X 48hr. MAY RESUME ON Wednesday02/13/23 11/15/18 Metformin Hydrochloride (Metformin Hcl) 850 Mg Tab, 1 TAB PO QPM for DIABETES HOLD MEDICATION X 48 hrs. MAY RESUME ON Wednesday02/13/23. 01/15/18 Propranolol HCl (Propranolol Hydrochloride) 10 Mg Tab, 5 MG PO QPM for HYPERTENSION 01/15/18 Metformin Hydrochloride (Metformin Hcl) 500 Mg Tab, 1 TAB PO QAM for DIABETES HOLD MEDICATION X 48 hrs. MAY RESUME ON Wednesday02/13/23. 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 Was a procedure done?: No Differential Dx Considerations may include: Includes but not limited to thyroid disease, encephalopathy, electrolyte abnormality, sepsis, infection, intracranial pathology, drug adverse effects, arrhythmia, kidney insufficiency, ACS, CVA, malignancy, anemia X-Ray, Labs, Meds, VS Vital Signs Date Time Temp Pulse Resp B/P (MAP) Pulse Ox O2 Delivery O2 Flow Rate FiO2 01/16/25 08:20 98.6 95 16 167/58 (94) 96 98.6 01/16/25 08:20 95 16 96 Room Air* 0 21 01/16/25 06:53 97.8 01/16/25 05:40 98.1 88 18 152/62 (92) 99 98.1 01/16/25 05:40 88 18 99 Room Air* 0 01/16/25 05:37 16 95 Room Air* 0 21 01/16/25 05:37 95 Room Air* 0 01/16/25 05:30 152/62 01/16/25 04:30 98.0 01/16/25 02:01 98.6 90 18 169/62 96 98.6 Lab Test 01/16/25 09:03 01/16/25 07:01 01/16/25 06:55 01/16/25 04:07 Range/Units Lactic Acid Level 2.5 *H 2.7 *H 0.4-2.0 mmol/L Urine Color Light-yellow Yellow Urine Clarity Clear Clear Urine pH 5.0 5.0-9.0 Urine Specific [place] 1.018 1.001-1.035 Urine Protein Negative Negative Urine Ketones Negative Negative Urine Blood Negative Negative /uL Urine Nitrite 1+ H Negative Urine Bilirubin Negative Negative Urine Urobilinogen Normal Negative mg/dL Urine Leukocyte Esterase 3+ Negative /uL Urine RBC 6 0 - 4 /hpf Urine Microscopic WBC 24 H 0-5 /HPF Urine Squamous Epithelial Cells Few <5 /hpf Urine Bacteria Few H None Seen /hpf Urine Hyaline Casts Few 0 - 2 /lpf Urine Glucose Normal Normal mg/dL Potassium Level 5.4 H 6.4 *H 3.5-5.1 mmol/L White Blood Count 14.3 H 4.4-10.8 10^3/uL Red Blood Count 3.12 L 4.0-5.20 10^6/uL Hemoglobin 10.1 L 12.2-16.2 g/dL Hematocrit 30.0 L 36.0-46.0 % Mean Corpuscular Volume 96.4 80.0-100.0 fL Mean Corpuscular Hemoglobin 32.4 H 28.0-32.0 pg Mean Corpuscular Hemoglobin Concent 33.6 32.0-36.0 g/dL Red Cell Distribution Width 14.1 11.8-14.3 % Platelet Count 532 H 140-450 10^3/uL Mean Platelet Volume 9.3 6.9-10.8 fL Neutrophils (%) (Auto) 80.0 37.0-80.0 % Lymphocytes (%) (Auto) 13.4 10.0-50.0 % Monocytes (%) (Auto) 4.9 0.0-12.0 % Eosinophils (%) (Auto) 1.0 0.0-7.0 % Basophils (%) (Auto) 0.7 0.0-2.0 % Neutrophils # (Auto) 11.4 H 1.6-8.6 10 ^3/uL Lymphocytes # (Auto) 1.9 0.4-5.4 10 ^3/uL Monocytes # (Auto) 0.7 0-1.3 10 ^3/uL Eosinophils # (Auto) 0.1 0-0.8 10 ^3/uL Basophils # (Auto) 0.1 0-0.2 10 ^3/uL Nucleated Red Blood Cells 0.0 % Sodium Level 137 136-145 mmol/L Chloride Level 107 98-107 mmol/L Carbon Dioxide Level 19 L 20-31 mmol/L Anion Gap 11 5-15 Blood Urea Nitrogen 35 H 9-23 mg/dL Creatinine 1.81 H 0.550-1.02 mg/dL Glomerular Filtration Rate Calc 28 >90 mL/min BUN/Creatinine Ratio 19.3 10.0-20.0 Serum Glucose 182 H 74-106 mg/dL Calcium Level 9.4 8.7-10.4 mg/dL Total Bilirubin < 0.2 L 0.2-1.0 mg/dL Aspartate Amino Transferase (AST) 15 13-40 U/L Alanine Aminotransferase (ALT) 14 7-40 U/L Alkaline Phosphatase 52 46-116 U/L Troponin I High Sensitivity 5 </=34 ng/L Total Protein 7.5 5.7-8.2 g/dL Albumin 4.6 3.2-4.8 g/dL Time of 1ST Reevaluation: 04:50 Reevaluation 1ST: Unchanged Patient Education/Counseling: Diagnosis, Treatment Family Education/Counseling: Other Comments MDM: patient presented with the above HPI.---near-syncope--workup was initiated. patient was found with the above mentioned diagnosis. the following medications were ordered: please refer to order lists of meds and tests obtained by myself Dr. Feldman. Patient ED course and VS have been stabilized. Patient has been reassessed in the ED and remained in a stable condition. Pertinent incidental findings were discussed with the patient and/or family. Patient/family voices understanding and is agreeable with plan. Patient has been observed in the ED adequate length of time to insure improvement/stability. Escalation of care considered: Consideration of escalation to observation or admission Hyper kalemia protocol was initiated. Patient was given Levaquin for UTI. Patient was ADMITTED to the medicine team for further evaluation and treatment of their presentation. All the reports of any imaging studies that were ordered by myself were reviewed by myself. SEPSIS Sepsis Screen Date sepsis recognized/suspect: Jan 16, 2025 Time Sepsis recognized/suspect: 0151 Recent Procedure: No On Antibiotic Therapy: No Respiratory Rate >20: No Heart Rate >90: No Temp<36 C (96.8 F) or >38.3 C: No SBP <90 or MAP <65 mmHG: No New Acute Mental Status Change: No Is the patient on CPAP, BIPAP,: No Physician Orders R Ankle 2 View Xray (01/16/25 03:04) L Ankle 2 View Xray (01/16/25 03:04) Electrocardigram (01/16/25 04:00) Chest Portable (01/16/25 06:43) Vital Signs Date Time Temp Pulse Resp B/P (MAP) Pulse Ox O2 Delivery O2 Flow Rate FiO2 01/16/25 08:20 98.6 95 16 167/58 (94) 96 98.6 01/16/25 08:20 95 16 96 Room Air* 0 21 01/16/25 06:53 97.8 01/16/25 05:40 98.1 88 18 152/62 (92) 99 98.1 01/16/25 05:40 88 18 99 Room Air* 0 21 01/16/25 05:37 16 95 Room Air* 0 21 01/16/25 05:37 95 Room Air* 0 21 01/16/25 05:30 152/62 01/16/25 04:30 98.0 01/16/25 02:01 98.6 90 18 169/62 96 98.6 Laboratory Tests Test 01/16/25 04:07 01/16/25 06:55 01/16/25 09:03 White Blood Count 14.3 10^3/uL (4.4-10.8) H Lactic Acid Level 2.7 mmol/L (0.4-2.0) *H 2.5 mmol/L (0.4-2.0) *H Departure 1 Departure Time of Disposition: 04:32 Impression: Primary Impression: Near syncope Additional Impressions: Ankle sprain Hyperkalemia UTI (urinary tract infection) Leukocytosis Elevated lactic acid level Disposition: ADMITTED INPATIENT Admit to: Tele Condition: Guarded e-Prescriptions Cephalexin (KEFLEX CAPSULE) 250 Mg Cp 2 CAP PO BID for 5 Days, #20 CAP Prov: ALYX POSADAS MD 01/20/25 Docusate Sodium (Docusate Sodium) 100 Mg Cap 100 MG PO BID for 30 Days, #60 CAP 0 Refills Prov: ALYX POSADAS MD 01/20/25 Lactulose (Lactulose) 10 Gm/15 Ml Sariah 10 GM PO DAILY for 7 Days, #100 ML 0 Refills Prov: ALYX POSADAS MD 01/20/25 Sodium Zirconium Cyclosilicate (Lokelma) 10 Gm Brian 10 GM PO DAILY for 14 Days, #14 PACK 0 Refills Prov: ALYX POSADAS MD 01/20/25 Discharged With: Self Critical Care Note Critical Care Time?: No I personally scribed for ANDREAS FELDMAN DO ([email or web address]) on 01/16/25 at 04:31. Electronically submitted by Hussein Woodward ([email or web address]). ANDREAS FELDMAN DO Jan 16, 2025 04:31
[2025-01-16 04:43] LABS: Hematocrit 30.0 % (36.0-46.0); Hemoglobin 10.1 g/dL (12.2-16.2); Mean Corpuscular Hemoglobin 32.4 pg (28.0-32.0); Mean Corpuscular Volume 96.4 fL (80.0-100.0); Nucleated Red Blood Cells % 0.0 %
[2025-01-16] MEDS: SODIUM CHLORIDE 0.9% 1,000 ML IV ONE ×2 (04:45→10:15)
[2025-01-16 04:50] LABS: Alanine Aminotransferase 14 U/L (7-40); Albumin 4.6 g/dL (3.2-4.8); Alkaline Phosphatase 52 U/L (46-116); Anion Gap 11 (5-15); BUN/Creatinine Ratio 19.3 (10.0-20.0); Calcium 9.4 mg/dL (8.7-10.4); Sodium 137 mmol/L (136-145); Total Protein 7.5 g/dL (5.7-8.2)
[2025-01-16 05:17] LABS: Bilirubin, Total < 0.2 mg/dL (0.2-1.0); Blood Urea Nitrogen 35 mg/dL (9-23); Carbon Dioxide 19 mmol/L (20-31); Chloride 107 mmol/L (98-107); Glucose 182 mg/dL (74-106)
[2025-01-16 05:18] LABS: Potassium 6.4 mmol/L (3.5-5.1)
[2025-01-16] MEDS: FUROSEMIDE 20 MG/2 ML VIAL IV ONE (05:30)
[2025-01-16] MEDS: CALCIUM GLUC 1,000mg/50ml-NS 50 ML IV ONE (05:30)
[2025-01-16] MEDS: SODIUM ZIRCONIUM CYCL 10 GM PAK PO ONE (05:30)
[2025-01-16] MEDS: ALBUTEROL SULF 2.5 MG/0.5ML(0.5%) NEB SOLN NEB ONE (05:39)
[2025-01-16 05:40] VITALS: PULSE 88; RESP 18; O2SAT 99
[2025-01-16] MEDS: levoFLOXacin 500 MG TAB PO ONE (06:52)
[2025-01-16 07:30] LABS: Lactic Acid w/Reflex 2.7 mmol/L (0.4-2.0)
--- NOTE | 2025-01-16 07:51 | DVH ---
CHEST RADIOGRAPH Indication: Near syncope Technique: Single frontal view of the chest was obtained Comparison: CHEST TWO VIEWS ROUTINE on DOS: 12/04/20 FINDINGS: Lines and Tubes: None Lungs: No focal consolidation. Pleura: No effusion. No pneumothorax. Cardiomediastinal contours: Unremarkable Bones: No acute osseous abnormality. IMPRESSION: 1. No acute cardiopulmonary disease.
[2025-01-16 08:11] LABS: Urine Protein, UAD Negative (Negative)
[2025-01-16 08:20] VITALS: PULSE 95; RESP 16; O2SAT 96
[2025-01-16] MEDS ORDERED: LORAZEPAM PO PRN (09:15)
[2025-01-16] MEDS ORDERED: BENA40TA71 PO (09:21)
[2025-01-16] MEDS ORDERED: TRIA37.586 PO (09:21)
[2025-01-16] MEDS ORDERED: EZET-10 PO (09:21)
[2025-01-16] MEDS ORDERED: TRAM50TA2 PO (09:21)
--- NOTE | 2025-01-16 09:27 | DVHHP2 ---
History of Present Illness Reason for Visit: Generalized weakness History of Present Illness Alejandrina Hays is an 79-year-old female with past medical history of hypertension, hyperlipidemia, diabetes, neuropathy, and coronary artery disease, who came to the hospital after a near syncopal event. Patient states she believes she ate some bad food. Last night about 2330 she began to feel ill with stomach cramps. She went to the bathroom. Then laid on the cool tile because she was feeling nauseated. While laying down she needed to go to the bathroom. She was able to get to the toilet, had diarrhea. When standing back up, she began to get dizzy, everything went black and she went down to the ground. She states she was able to ease down to the ground and did not hit her head. When she went down she did hurt both of her ankles. Patient does live alone, and she called EMS for assistance. 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: Periperal neuropathy Endocrine: Diabetes Past Surgical History: Hysterectomy, Other (Bladder surgery x 2, nasal surgery) Smoke: No ALCOHOL: none Drugs: None Lives: Alone Domestic Violence: Neg Review of Systems Constitutional: Yes: Malaise; No: Fever, Chills, Sweats, Weakness, Other Eyes: No: Pain, Vision change, Conjunctivae inflammation, Eyelid inflammation, Other, Redness ENT: No: Ear pain, Ear discharge, Nose pain, Nose discharge, Nose congestion, Mouth pain, Mouth swelling, Throat pain, Throat swelling, Other Respiratory: No: Cough, Dry, Shortness of breath, SOB with excertion, Wheezing, Hemoptysis, Pleuritic Pain, Sputum, Wheezing, Other Cardiovascular: No: Chest Pain, Palpitations, Orthopnea, Paroxysmal Noc. Dyspnea, Edema, Lt Headedness, Other Gastrointestinal: Nausea, Abdominal Pain, Diarrhea; No: Vomiting, Constipation, Melena, Hematochezia, Other Genitourinary: No Dysuria, No Frequency, No Incontinence, No Hematuria, No Retention, No Other Musculoskeletal: No: other, neck pain, shoulder pain, arm pain, back pain, hand pain, leg pain, foot pain Skin: No: Rash, Lesions, Jaundice, Bruising, Other Neurological: Weakness, Incoordination; No: Numbness, Change in speech, Confusion, Seizures, Other Allergies: Coded Allergies: Penicillins (Verified Allergy, Intermediate, RASH, 06/28/23) Sulfa Antibiotics (Verified Allergy, Unknown, STOMACH UPSET, 06/28/23) Medications Current Medications Medications Dose Ordered Sig/Letty Route Start Time Stop Time Status Last Admin Dose Admin Clonidine HCl 0.1 mg BID PO 01/16/25 10:00 UNV Clopidogrel Bisulfate 75 mg DAILY PO 01/16/25 10:00 UNV Patient Own Medication 1 tab HS PRN PO 01/16/25 09:15 UNV Patient Own Medication 1 cap DAILY PO 01/16/25 10:00 UNV Patient Own Medication 5 mg QPM PO 01/16/25 18:00 UNV Patient Own Medication 1 tab QPM PO 01/16/25 18:00 UNV EZETIMIBE 5 mg DAILY PO 01/16/25 10:00 UNV Tramadol HCl 100 mg BID PRN PO 01/16/25 09:30 UNV Patient Own Medication 1 tab DAILY PO 01/16/25 10:00 UNV Patient Own Medication 1 cap DAILY PO 01/16/25 10:00 UNV Patient Own Medication 1,000 mcg DAILY PO 01/16/25 10:00 UNV Patient Own Medication 1 cap DAILY PO 01/16/25 10:00 UNV Patient Own Medication 1 tab DAILY PO 01/16/25 10:00 UNV Exam Vital Signs Vital Signs Date Time Temp Pulse Resp B/P (MAP) Pulse Ox O2 Delivery O2 Flow Rate FiO2 01/16/25 08:20 98.6 95 16 167/58 (94) 96 98.6 01/16/25 08:20 Room Air* 0 21 General Appearance: Alert, Oriented X3, Cooperative, mild distress HEENT: Atraumatic, PERRLA, Other (Mucous membr dry) Respiratory: Clear to auscultation, Normal air movement Cardiovascular: Regular rate, Normal S1, Normal S2 Abdominal: Normal bowel sounds, Soft, No tenderness Extremities: No clubbing, No cyanosis, No edema, Normal pulses Skin: No rashes, No breakdown, No significant lesion Neuro: Normal gait, Normal speech Psych/Mental Status: Mental status NL, Mood NL Labs/Xrays Labs Test 01/16/25 09:03 01/16/25 07:01 01/16/25 06:55 01/16/25 04:07 Range/Units Urine Color Light-yellow Yellow Urine Clarity Clear Clear Urine pH 5.0 5.0-9.0 Urine Specific [place] 1.018 1.001-1.035 Urine Protein Negative Negative Urine Ketones Negative Negative Urine Blood Negative Negative /uL Urine Nitrite 1+ H Negative Urine Bilirubin Negative Negative Urine Urobilinogen Normal Negative mg/dL Urine Leukocyte Esterase 3+ Negative /uL Urine RBC 6 0 - 4 /hpf Urine Microscopic WBC 24 H 0-5 /HPF Urine Squamous Epithelial Cells Few <5 /hpf Urine Bacteria Few H None Seen /hpf Urine Hyaline Casts Few 0 - 2 /lpf Urine Glucose Normal Normal mg/dL Potassium Level 5.4 H 3.5-5.1 mmol/L White Blood Count 14.3 H 4.4-10.8 10^3/uL Red Blood Count 3.12 L 4.0-5.20 10^6/uL Hemoglobin 10.1 L 12.2-16.2 g/dL Hematocrit 30.0 L 36.0-46.0 % Mean Corpuscular Volume 96.4 80.0-100.0 fL Mean Corpuscular Hemoglobin 32.4 H 28.0-32.0 pg Mean Corpuscular Hemoglobin Concent 33.6 32.0-36.0 g/dL Red Cell Distribution Width 14.1 11.8-14.3 % Platelet Count 532 H 140-450 10^3/uL Mean Platelet Volume 9.3 6.9-10.8 fL Neutrophils (%) (Auto) 80.0 37.0-80.0 % Lymphocytes (%) (Auto) 13.4 10.0-50.0 % Monocytes (%) (Auto) 4.9 0.0-12.0 % Eosinophils (%) (Auto) 1.0 0.0-7.0 % Basophils (%) (Auto) 0.7 0.0-2.0 % Neutrophils # (Auto) 11.4 H 1.6-8.6 10 ^3/uL Lymphocytes # (Auto) 1.9 0.4-5.4 10 ^3/uL Monocytes # (Auto) 0.7 0-1.3 10 ^3/uL Eosinophils # (Auto) 0.1 0-0.8 10 ^3/uL Basophils # (Auto) 0.1 0-0.2 10 ^3/uL Nucleated Red Blood Cells 0.0 % Sodium Level 137 136-145 mmol/L Chloride Level 107 98-107 mmol/L Carbon Dioxide Level 19 L 20-31 mmol/L Anion Gap 11 5-15 Blood Urea Nitrogen 35 H 9-23 mg/dL Creatinine 1.81 H 0.550-1.02 mg/dL Glomerular Filtration Rate Calc 28 >90 mL/min BUN/Creatinine Ratio 19.3 10.0-20.0 Serum Glucose 182 H 74-106 mg/dL Calcium Level 9.4 8.7-10.4 mg/dL Total Bilirubin < 0.2 L 0.2-1.0 mg/dL Aspartate Amino Transferase (AST) 15 13-40 U/L Alanine Aminotransferase (ALT) 14 7-40 U/L Alkaline Phosphatase 52 46-116 U/L Troponin I High Sensitivity 5 </=34 ng/L Total Protein 7.5 5.7-8.2 g/dL Albumin 4.6 3.2-4.8 g/dL CHEST RADIOGRAPH FINDINGS: Lines and Tubes: None Lungs: No focal consolidation. Pleura: No effusion. No pneumothorax. Cardiomediastinal contours: Unremarkable Bones: No acute osseous abnormality. IMPRESSION: 1. No acute cardiopulmonary disease. TECHNIQUE: 2 views of each ankle XY R ANKLE 2 VIEW XRAY, XY L ANKLE 2 VIEW XRAY FINDINGS: No evidence of acute fracture or traumatic joint malalignment. Diffuse osteopenia. Corticated mineralized densities at the medial malleoli compatible with remote trauma. Small calcaneal enthesophytes. Mild polyarticular osteoarthrosis. No acute soft tissue abnormality. IMPRESSION: 1. No acute osseous finding of the ankles. TECHNIQUE: 2 views of each ankle XY R ANKLE 2 VIEW XRAY, XY L ANKLE 2 VIEW XRAY FINDINGS: No evidence of acute fracture or traumatic joint malalignment. Diffuse osteopenia. Corticated mineralized densities at the medial malleoli compatible with remote trauma. Small calcaneal enthesophytes. Mild polyarticular osteoarthrosis. No acute soft tissue abnormality. IMPRESSION: 1. No acute osseous finding of the ankles. SEPSIS Sepsis Screen Date sepsis recognized/suspect: Jan 16, 2025 Time Sepsis recognized/suspect: 819 Recent Procedure: No On Antibiotic Therapy: No Respiratory Rate >20: No Heart Rate >90: Yes Temp<36 C (96.8 F) or >38.3 C: No SBP <90 or MAP <65 mmHG: No New Acute Mental Status Change: No Is the patient on CPAP, BIPAP,: No Physician Orders R Ankle 2 View Xray (01/16/25 03:04) L Ankle 2 View Xray (01/16/25 03:04) Electrocardigram (01/16/25 04:00) Burton Wrap: (01/16/25 04:32) Chest Portable (01/16/25 06:43) Clonidine Hcl Tablet (Catapres Tablet) (01/16/25 10:00) Clopidogrel Bisulfate (Plavix) (01/16/25 10:00) (Nf) Lorazepam (Ativan) (01/16/25 09:15) (Nf) Omeprazole (Omeprazole Dr) (01/16/25 10:00) (Nf) Propranolol Hcl (Propranolol Hydroc (01/16/25 18:00) (Nf) Sitagliptin Phosphate (Januvia) (01/16/25 18:00) Ezetimibe (Zetia) (01/16/25 10:00) Tramadol Hcl (Ultram) (01/16/25 09:30) (Nf) Benazepril Hcl (01/16/25 10:00) (Nf) Cholecalciferol (Vitamin D3) (01/16/25 10:00) (Nf) Cyanocobalamin (Vitamin B12) (01/16/25 10:00) (Nf) Hydrochlorothiazide W/Triamter (Tri (01/16/25 10:00) (Nf) Magnesium Oxide (01/16/25 10:00) Glucose Blood (Accu-Chek Comfort Curve T (01/16/25 11:30) Bedtime Insulin Scale (01/16/25 22:00) Moderate Insulin Ss (01/16/25 11:30) Dextrose 50% Syringe (01/16/25 09:30) Admit (01/16/25 09:24) Code Status (01/16/25 09:24) Ondansetron Hcl (Zofran) (01/16/25 09:30) Docusate Sodium Capsule (Colace Capsule) (01/16/25 09:30) Fall Risk Precautions In Place QSHIFT (01/16/25 09:24) Complete Blood Count (01/17/25 04:00) Comprehensive Metabolic Panel (01/17/25 04:00) Cardiac Diet-2gna,Lofat,Lochol (01/16/25 Breakfast) Pt Request For Service (01/16/25 09:24) Condition: Serious (01/16/25 09:24) Acetaminophen Tablet (Tylenol Tablet) (01/16/25 09:30) Nitroglycerin Sublingual (Ntrostat Subli (01/16/25 09:30) Morphine Sulfate Injection (01/16/25 09:30) Stat Ekg For Chest Pain (01/16/25 09:24) Notify Of Changes From Base (01/16/25 09:24) Interior Painter For 24 Hours (01/16/25 09:24) Emergency Dysrhythmia Protocol (01/16/25 09:24) Rhythm Strips Once Every Shift (01/16/25 09:24) Oxygen By Nasal Cannula (01/16/25 09:24) Vital Signs Date Time Temp Pulse Resp B/P (MAP) Pulse Ox O2 Delivery O2 Flow Rate FiO2 01/16/25 08:20 98.6 95 16 167/58 (94) 96 98.6 01/16/25 08:20 95 16 96 Room Air* 0 21 01/16/25 06:53 97.8 01/16/25 05:40 98.1 88 18 152/62 (92) 99 98.1 01/16/25 05:40 88 18 99 Room Air* 0 21 01/16/25 05:37 16 95 Room Air* 0 21 01/16/25 05:37 95 Room Air* 0 21 01/16/25 05:30 152/62 01/16/25 04:30 98.0 01/16/25 02:01 98.6 90 18 169/62 96 98.6 Laboratory Tests Test 01/16/25 04:07 01/16/25 06:55 01/16/25 09:03 White Blood Count 14.3 10^3/uL (4.4-10.8) H Lactic Acid Level 2.7 mmol/L (0.4-2.0) *H Pending Medications Medications Dose Ordered Sig/Letty Route Start Time Stop Time Status Last Admin Dose Admin Acetaminophen 650 mg ONCE STAT PO 01/16/25 04:30 01/16/25 04:31 DC 01/16/25 04:30 650 MG Albuterol 20 mg ONCE ONCE NEB 01/16/25 05:30 01/16/25 05:31 DC 01/16/25 05:39 20 MG Calcium Gluconate/ Sodium Chloride 50 ml @ 120 mls/hr ONCE ONCE IV 01/16/25 05:30 01/16/25 05:54 DC 01/16/25 05:30 120 MLS/HR Furosemide 20 mg ONCE ONCE IV 01/16/25 05:30 01/16/25 05:31 DC 01/16/25 05:30 20 MG Levofloxacin 500 mg ONCE ONCE PO 01/16/25 06:45 01/16/25 06:46 DC 01/16/25 06:52 500 MG Sodium Chloride 1,000 ml @ 1,000 mls/hr Q1H ONCE IV 01/16/25 04:45 01/16/25 05:44 DC 01/16/25 04:45 1,000 MLS/HR Zirconium Oxide 10 gm ONCE ONCE PO 01/16/25 05:30 01/16/25 05:31 DC 01/16/25 05:30 10 GM Assessment/Plan Assessment/Plan Assessment: Hyperkalemia, Near syncope, Diabetes, Hypertension, Hyperlipidemia, Plan: Admit to Tele, IV antibiotics, IV hydration, Fall precautions, Physical therapy evaluation, Accu checks Q AC&HS with sliding scale, Home medications reconciled, Plan discussed with: Patient My Orders Orders - CLAUDE WINTERS ROTARY DRILLER Procedure Category Date Status Time Clonidine Hcl Tablet PHA 01/16/25 Logged (Catapres Tablet) 10:00 Clopidogrel Bisulfate PHA 01/16/25 Logged (Plavix) 10:00 (Nf) Lorazepam PHA 01/16/25 Logged (Ativan) 09:15 (Nf) Omeprazole PHA 01/16/25 Logged (Omeprazole Dr) 10:00 (Nf) Propranolol Hcl PHA 01/16/25 Logged (Propranolol Hydroc 18:00 (Nf) Sitagliptin PHA 01/16/25 Logged Phosphate (Januvia) 18:00 Ezetimibe (Zetia) PHA 01/16/25 Logged 10:00 Tramadol Hcl (Ultram) PHA 01/16/25 Logged 09:30 (Nf) Benazepril Hcl PHA 01/16/25 Logged 10:00 (Nf) Cholecalciferol PHA 01/16/25 Logged (Vitamin D3) 10:00 (Nf) Cyanocobalamin PHA 01/16/25 Logged (Vitamin B12) 10:00 (NF) PHA 01/16/25 Logged Hydrochlorothiazide 10:00 (Nf) Magnesium Oxide PHA 01/16/25 Logged 10:00 Glucose Blood [facility] 01/16/25 Verified (Accu-Chek Comfort 11:30 Bedtime Insulin Scale PHA 01/16/25 Verified 22:00 Moderate Insulin Ss PHA 01/16/25 Verified 11:30 Dextrose 50% Syringe PHA 01/16/25 Verified 09:30 Admit ADMIT 01/16/25 Verified 09:24 Code Status CODE 01/16/25 Verified 09:24 Ondansetron Hcl PHA 01/16/25 Verified (Zofran) 09:30 Docusate Sodium [facility] 01/16/25 Verified Capsule (Colace 09:30 Fall Risk Precautions [facility] 01/16/[address] 09:24 Complete Blood Count LAB 01/17/25 Verified 04:00 Comprehensive LAB 01/17/25 Verified Metabolic Panel 04:00 Cardiac DIET 01/16/25 Verified Diet-2gna,Lofat,Lochol Breakfast Pt Request For Service PT 01/16/25 Verified 09:24 Condition: Serious [facility] 01/16/25 Verified 09:24 Acetaminophen Tablet [facility] 01/16/25 Verified (Tylenol Tablet) 09:30 Nitroglycerin [facility] 01/16/25 Verified Sublingual (Ntrostat 09:30 Morphine Sulfate [facility] 01/16/25 Verified Injection 09:30 Stat Ekg For Chest [facility] 01/16/25 Verified Pain 09:24 Notify Md Of Changes [facility] 01/16/25 Verified From Base 09:24 Interior Painter For [facility] 01/16/25 Verified 24 Hours 09:24 Emergency Dysrhythmia [facility] 01/16/25 Verified Protocol 09:24 Rhythm Strips Once [facility] 01/16/25 Verified Every Shift 09:24 Oxygen By Nasal RT 01/16/25 Verified Cannula 09:24 Date of Service: Jan 16, 2025 Billing Provider: CLAUDE WINTERS Common Visit Codes: [id number] INP/OBS CARE (MOD) CLAUDE WITNERS Jan 16, 2025 09:27
[2025-01-16] MEDS ORDERED: ONDANSETRON HCL 4 MG/2 ML VIAL IV PRN (09:30)
[2025-01-16] MEDS ORDERED: MORPHINE SULFATE INJ 2 MG/ml SYRG IV PRN (09:30)
[2025-01-16] MEDS ORDERED: NITROGLYCERIN 0.4 MG SL TAB SL PRN (09:30)
[2025-01-16] MEDS ORDERED: DEXTROSE (50%) 50ML SYRG IV PRN ×2 (09:30→12:15)
[2025-01-16] MEDS ORDERED: HYDROCHLOROTHIAZIDE PO SCH (10:00)
[2025-01-16] MEDS ORDERED: PATIENTS OWN MEDICATION (Cholecalciferol (Vitamin D3) 1 CAP) PO SCH (10:00)
[2025-01-16] MEDS ORDERED: CYANOCOBALAMIN 1000 MCG PO SCH (10:00)
[2025-01-16] MEDS ORDERED: [UNRECOGNIZED DRUG - OTHER] PO SCH (10:00)
[2025-01-16] MEDS ORDERED: PATIENTS OWN MEDICATION (Omeprazole (Omeprazole Dr) 1 CAP) PO SCH (10:00)
[2025-01-16] MEDS ORDERED: PATIENTS OWN MEDICATION (Benazepril Hcl 1 TAB) PO SCH (10:00)
[2025-01-16] MEDS ORDERED: PATIENTS OWN MEDICATION (Magnesium Oxide 1 TAB) PO SCH (10:00)
[2025-01-16] MEDS ORDERED: TRIAMTER PO SCH (10:00)
[2025-01-16] MEDS: ACETAMINOPHEN 325 MG TAB PO PRN (10:32)
[2025-01-16] MEDS: CLOPIDOGREL BISULFATE 75 MG TAB PO SCH (10:33)
[2025-01-16] MEDS: InsuLIN REG 1unit/0.01ml Soln (100units/ml) SC SCH ×3 (11:30→21:31)
[2025-01-16] MEDS: PANTOPRAZOLE 40 MG TAB PO ONE (11:40)
[2025-01-16] MEDS: EZETIMIBE 10 MG TAB PO SCH (11:41)
[2025-01-16] MEDS: ACCU-CHEK COMFORT CURVE STRIP VI SCH ×2 (11:57→17:00)
--- NOTE | 2025-01-16 13:52 | DVHPN2 ---
Progress Note - Dictate Date Seen: Jan 16, 2025 Medical Necessity Reason Pt with a Central, PICC or Fol: No Subjective PT PRESENTED WITH NEAR SYNCOPE ABD PAIN WITH CRAMPING DIARRHEA ? FOOD POISONINGH PMH ALEXUS DIABETES CAD S/P PTCA STENT TYPE IV RTA HYPERKALEMIA VASCULOPATHY NEUROPATHY PAD RECURRENT UTI LEUKOCYTOSIS vital signs Vital Sign Date Time Temp Pulse Resp B/P (MAP) Pulse Ox O2 Delivery O2 Flow Rate FiO2 01/16/25 11:32 166/60 01/16/25 08:20 98.6 95 16 96 98.6 01/16/25 08:20 Room Air* 0 21 medications Current Medications Medications Dose Ordered Sig/Letty Route Start Time Stop Time Status Last Admin Dose Admin Clonidine HCl 0.1 mg BID PO 01/16/25 10:00 01/16/25 10:32 0.1 MG Clopidogrel Bisulfate 75 mg DAILY PO 01/16/25 10:00 01/16/25 10:33 75 MG Patient Own Medication 1 tab HS PRN PO 01/16/25 09:15 UNV Patient Own Medication 1 cap DAILY PO 01/16/25 10:00 UNV Patient Own Medication 5 mg QPM PO 01/16/25 18:00 Patient Own Medication 1 tab QPM PO 01/16/25 18:00 EZETIMIBE 5 mg DAILY PO 01/16/25 10:00 01/16/25 11:41 5 MG Tramadol HCl 100 mg BID PRN PO 01/16/25 09:30 01/16/25 13:01 100 MG Patient Own Medication 1 tab DAILY PO 01/16/25 10:00 UNV Patient Own Medication 1 cap DAILY PO 01/16/25 10:00 UNV Patient Own Medication 1,000 mcg DAILY PO 01/16/25 10:00 UNV Patient Own Medication 1 cap DAILY PO 01/16/25 10:00 UNV Patient Own Medication 1 tab DAILY PO 01/16/25 10:00 UNV Insulin Human Regular HS SC 01/16/25 22:00 Ondansetron HCl 4 mg Q4HP PRN IV 01/16/25 09:30 Docusate Sodium 100 mg BIDPRN PRN PO 01/16/25 09:30 Acetaminophen 650 mg Q6HP PRN PO 01/16/25 09:30 Nitroglycerin 0.4 mg Q5MINP PRN SL 01/16/25 09:30 Morphine Sulfate 2 mg Q30M PRN IV 01/16/25 09:30 Lorazepam 1 mg HS PRN PO 01/16/25 10:15 Pantoprazole Sodium 40 mg DAILY PO 01/17/25 10:00 Levofloxacin 500 mg DAILY PO 01/17/25 10:00 Metronidazole 100 ml @ 100 mls/hr Q8HR IV 01/16/25 14:00 Benazepril HCl 40 mg DAILY PO 01/17/25 10:00 Cholecalciferol 5,000 unit DAILY PO 01/17/25 10:00 Cyanocobalamin 1,000 mcg DAILY PO 01/17/25 10:00 Magnesium Oxide 400 mg DAILY PO 01/17/25 10:00 Triamterene/HCTZ 1 cap DAILY PO 01/17/25 10:00 Diagnostic Test (Pha) 1 strip ACHS 01/16/25 17:00 Insulin Human Regular ACHS SC 01/16/25 17:00 Dextrose 50 ml UD PRN IV 01/16/25 12:15 laboratory and microbiology Laboratory Tests 01/16/25 06:55 01/16/25 04:07 Test 01/16/25 04:07 Range/Units Serum Glucose 182 H 74-106 mg/dL Problem List NEAR SYNCOPE ABD PAIN WITH CRAMPING DIARRHEA ? FOOD POISONINGH PMH ALEXUS DIABETES CAD S/P PTCA STENT TYPE IV RTA HYPERKALEMIA VASCULOPATHY NEUROPATHY PAD RECURRENT UTI LEUKOCYTOSIS Assessment/Plan ABX CORRECT K LOKELMA IV FLUIDS Plan discussed with: Patient Critical Care Time(min): 35 DONALD BOWLING MD Jan 16, 2025 13:52
[2025-01-16] MEDS: HYDROcodone-ACET 5/325MG TAB PO PRN (17:46)
[2025-01-16] MEDS: PROPRANOLOL HYDROCHLORIDE PO SCH (18:00)
[2025-01-16 18:15] VITALS: BP 166/68; PULSE 92; PULSE 98; RESP 18; TEMP 98.6; O2SAT 97; O2SAT 98
[2025-01-16 19:30] VITALS: BP 133/51; PULSE 81
[2025-01-16 20:00] VITALS: PULSE 83
[2025-01-16 21:00] VITALS: BP 142/66; PULSE 84; RESP 18; TEMP 97.8; O2SAT 95
[2025-01-16] MEDS: LORazepam 0.5 MG TAB PO PRN (21:24)
[2025-01-17] VITALS (8 sets, daily range): BP systolic 112–152; BP diastolic 53–75; PULSE 73–92; RESP 16–18; TEMP 97.6–98.4; O2SAT 90–99
[2025-01-17 06:48] LABS: Hemoglobin 9.2 g/dL (12.2-16.2); Nucleated Red Blood Cells % 0.1 %
[2025-01-17 06:50] LABS: Hematocrit 27.0 % (36.0-46.0); Mean Corpuscular Hemoglobin 32.8 pg (28.0-32.0); Mean Corpuscular Volume 96.2 fL (80.0-100.0)
[2025-01-17 06:56] LABS: Alanine Aminotransferase 11 U/L (7-40); Albumin 4.3 g/dL (3.2-4.8); Alkaline Phosphatase 51 U/L (46-116); Anion Gap 9 (5-15); BUN/Creatinine Ratio 15.3 (10.0-20.0); Blood Urea Nitrogen 23 mg/dL (9-23); Calcium 9.1 mg/dL (8.7-10.4); Carbon Dioxide 23 mmol/L (20-31); Chloride 107 mmol/L (98-107); Sodium 139 mmol/L (136-145); Total Protein 6.7 g/dL (5.7-8.2)
[2025-01-17 06:57] LABS: Bilirubin, Total 0.4 mg/dL (0.2-1.0)
[2025-01-17 06:59] LABS: Glucose 157 mg/dL (74-106); Potassium 5.5 mmol/L (3.5-5.1)
[2025-01-17] MEDS: CHOLECALCIFEROL (VITD3) 1,000UNIT=25mCg TAB PO SCH (08:55)
[2025-01-17] MEDS: CYANOCOBALAMIN 500 MCG TAB PO SCH (08:55)
[2025-01-17] MEDS: BENAZEPRIL HCL 10 MG TAB PO SCH (08:56)
[2025-01-17] MEDS: MAGNESIUM OXIDE 400 MG TAB PO SCH (08:57)
[2025-01-17] MEDS: PANTOPRAZOLE 40 MG TAB PO SCH (08:57)
[2025-01-17] MEDS: levoFLOXacin 500 MG TAB PO SCH (08:57)
[2025-01-17] MEDS: TRIAMTERENE/HCTZ 37.5/25 MG CAP/TAB PO SCH (09:19)
[2025-01-17] MEDS ORDERED: PANTOPRAZOLE 40 MG/10 ML VIAL INJ IV ONE (10:30)
--- NOTE | 2025-01-17 10:31 | DVHPN2 ---
Progress Note Date Seen: Jan 17, 2025 Medical Necessity Reason Pt with a Central, PICC or Fol: No Subjective Patient reports: No new complaints Review of Systems: HEENT:Normal, CVS:Normal, RESPIRATORY:Normal, GI:Normal, :Normal, MSK:Normal, NEURO:Normal Objective vital signs Vital Sign Date Time Temp Pulse Resp B/P (MAP) Pulse Ox O2 Delivery O2 Flow Rate FiO2 01/17/25 09:19 115/52 01/17/25 08:47 98.4 79 16 92 98.4 01/16/25 20:00 Room Air* 0 21 Total Intake and Output 01/16/25 01/16/25 01/17/25 15:00 23:00 07:00 Intake Total 500 ml 450 ml 250 ml Balance 500 ml 450 ml 250 ml medications Current Medications Medications Dose Ordered Sig/Letty Route Start Time Stop Time Status Last Admin Dose Admin Clonidine HCl 0.1 mg BID PO 01/16/25 10:00 01/16/25 21:29 0.1 MG Clopidogrel Bisulfate 75 mg DAILY PO 01/16/25 10:00 01/17/25 08:55 75 MG Patient Own Medication 1 tab HS PRN PO 01/16/25 09:15 UNV Patient Own Medication 1 cap DAILY PO 01/16/25 10:00 UNV Patient Own Medication 5 mg QPM PO 01/16/25 18:00 Patient Own Medication 1 tab QPM PO 01/16/25 18:00 EZETIMIBE 5 mg DAILY PO 01/16/25 10:00 01/17/25 08:57 5 MG Tramadol HCl 100 mg BID PRN PO 01/16/25 09:30 01/16/25 13:01 100 MG Patient Own Medication 1 tab DAILY PO 01/16/25 10:00 UNV Patient Own Medication 1 cap DAILY PO 01/16/25 10:00 UNV Patient Own Medication 1,000 mcg DAILY PO 01/16/25 10:00 UNV Patient Own Medication 1 cap DAILY PO 01/16/25 10:00 UNV Patient Own Medication 1 tab DAILY PO 01/16/25 10:00 UNV Insulin Human Regular HS SC 01/16/25 22:00 Ondansetron HCl 4 mg Q4HP PRN IV 01/16/25 09:30 Docusate Sodium 100 mg BIDPRN PRN PO 01/16/25 09:30 Acetaminophen 650 mg Q6HP PRN PO 01/16/25 09:30 Nitroglycerin 0.4 mg Q5MINP PRN SL 01/16/25 09:30 Morphine Sulfate 2 mg Q30M PRN IV 01/16/25 09:30 Lorazepam 1 mg HS PRN PO 01/16/25 10:15 01/16/25 21:24 0.5 MG Pantoprazole Sodium 40 mg DAILY PO 01/17/25 10:00 01/17/25 08:57 40 MG Levofloxacin 500 mg DAILY PO 01/17/25 10:00 01/17/25 08:57 500 MG Metronidazole 100 ml @ 100 mls/hr Q8HR IV 01/16/25 14:00 01/17/25 05:20 100 MLS/HR Benazepril HCl 40 mg DAILY PO 01/17/25 10:00 01/17/25 08:56 40 MG Cholecalciferol 5,000 unit DAILY PO 01/17/25 10:00 01/17/25 08:55 5,000 UNIT Cyanocobalamin 1,000 mcg DAILY PO 01/17/25 10:00 01/17/25 08:55 1,000 MCG Magnesium Oxide 400 mg DAILY PO 01/17/25 10:00 01/17/25 08:57 400 MG Triamterene/HCTZ 1 cap DAILY PO 01/17/25 10:00 Diagnostic Test (Pha) 1 strip ACHS 01/16/25 17:00 01/17/25 06:33 1 STRIP Insulin Human Regular ACHS SC 01/16/25 17:00 Dextrose 50 ml UD PRN IV 01/16/25 12:15 Acetaminophen/ Hydrocodone Bitart 1 tab Q4HPRN PRN PO 01/16/25 17:00 01/17/25 05:25 1 TAB Examination: GENERAL:Normal, HEENT:Normal, NECK:Normal, LUNGS:Normal, CVS:Normal, ABDOMEN:Normal, MSK:Normal, MSK:Abnormal (BILATERAL ANKLE TENDERNESS), SKIN:Normal, NEURO:Normal, :Normal laboratory and microbiology Laboratory Tests 01/17/25 05:32 Test 01/17/25 05:32 Range/Units Serum Glucose 157 H 74-106 mg/dL Problem List/Assessment/Plan Problem List/Assessment/Plan #1 s/p fall/syncopy ? autonomic failure #2 hyperkalemia: lokelma, dc benazepril, dyazide #3 ckd stage 3 #4 dm: ssi #5 htn #6 bilateral ankle pain: ortho eval #7 cad s/p stents #8 pad #9 anemia #10 ? sepsis with acute gastroenteritis: improved advance care planning- full code- time spent 19 mins Plan discussed with: Patient My Orders My Orders Orders - INDIA RONDON MD Procedure Category Date Status Time Sodium Zirconium PHA 01/17/25 Transmitted Cyclosilicate 14:00 * Orthopedic Consult CONS 01/17/25 Transmitted 10:17 Pantoprazole PHA 01/17/25 Transmitted (Protonix) 10:30 Pantoprazole PHA 01/18/25 Transmitted (Protonix) 10:00 Basic Metabolic Panel LAB 01/18/25 Verified 06:00 Complete Blood Count LAB 01/18/25 Verified 06:00 Thyroid Stimulating LAB 01/18/25 Verified Hormone 05:00 Hemoglobin A1c LAB 01/18/25 Verified 06:00 Date of Service: Jan 17, 2025 Billing Provider: INDIA RONDON MD Common Visit Codes: [id number] INP/OBS CARE(HIGH) Secondary Visit Codes: [id number] CARE PLAN 30 MINUTES INDIA RONDON MD Jan 17, 2025 10:31
--- NOTE | 2025-01-17 13:36 | DVHPN2 ---
Progress Note - Dictate Date Seen: Jan 17, 2025 Medical Necessity Reason Pt with a Central, PICC or Fol: No Subjective PT PRESENTED WITH NEAR SYNCOPE ABD PAIN WITH CRAMPING DIARRHEA ? FOOD POISONINGH PMH ALEXUS DIABETES CAD S/P PTCA STENT TYPE IV RTA HYPERKALEMIA VASCULOPATHY NEUROPATHY PAD RECURRENT UTI LEUKOCYTOSIS vital signs Vital Sign Date Time Temp Pulse Resp B/P (MAP) Pulse Ox O2 Delivery O2 Flow Rate FiO2 01/17/25 09:19 115/52 01/17/25 08:47 98.4 79 16 92 98.4 01/16/25 20:00 Room Air* 0 21 Total Intake and Output 01/16/25 01/16/25 01/17/25 15:00 23:00 07:00 Intake Total 500 ml 450 ml 250 ml Balance 500 ml 450 ml 250 ml medications Current Medications Medications Dose Ordered Sig/Letty Route Start Time Stop Time Status Last Admin Dose Admin Clonidine HCl 0.1 mg BID PO 01/16/25 10:00 01/16/25 21:29 0.1 MG Clopidogrel Bisulfate 75 mg DAILY PO 01/16/25 10:00 01/17/25 08:55 75 MG Patient Own Medication 1 tab HS PRN PO 01/16/25 09:15 UNV Patient Own Medication 1 cap DAILY PO 01/16/25 10:00 UNV EZETIMIBE 5 mg DAILY PO 01/16/25 10:00 01/17/25 08:57 5 MG Tramadol HCl 100 mg BID PRN PO 01/16/25 09:30 01/16/25 13:01 100 MG Patient Own Medication 1 tab DAILY PO 01/16/25 10:00 UNV Patient Own Medication 1 cap DAILY PO 01/16/25 10:00 UNV Patient Own Medication 1,000 mcg DAILY PO 01/16/25 10:00 UNV Patient Own Medication 1 cap DAILY PO 01/16/25 10:00 UNV Patient Own Medication 1 tab DAILY PO 01/16/25 10:00 UNV Ondansetron HCl 4 mg Q4HP PRN IV 01/16/25 09:30 Docusate Sodium 100 mg BIDPRN PRN PO 01/16/25 09:30 Acetaminophen 650 mg Q6HP PRN PO 01/16/25 09:30 Nitroglycerin 0.4 mg Q5MINP PRN SL 01/16/25 09:30 Morphine Sulfate 2 mg Q30M PRN IV 01/16/25 09:30 Lorazepam 1 mg HS PRN PO 01/16/25 10:15 01/16/25 21:24 0.5 MG Cyanocobalamin 1,000 mcg DAILY PO 01/17/25 10:00 01/17/25 08:55 1,000 MCG Diagnostic Test (Pha) 1 strip ACHS 01/16/25 17:00 01/17/25 06:33 1 STRIP Insulin Human Regular ACHS SC 01/16/25 17:00 Dextrose 50 ml UD PRN IV 01/16/25 12:15 Acetaminophen/ Hydrocodone Bitart 1 tab Q4HPRN PRN PO 01/16/25 17:00 01/17/25 05:25 1 TAB Zirconium Oxide 10 gm Q8HR PO 01/17/25 14:00 Pantoprazole Sodium 40 mg DAILY IV 01/18/25 10:00 laboratory and microbiology Laboratory Tests 01/17/25 05:32 Test 01/17/25 05:32 Range/Units Serum Glucose 157 H 74-106 mg/dL Problem List NEAR SYNCOPE ABD PAIN WITH CRAMPING DIARRHEA ? FOOD POISONINGH PMH ALEXUS DIABETES CAD S/P PTCA STENT TYPE IV RTA HYPERKALEMIA VASCULOPATHY NEUROPATHY PAD RECURRENT UTI LEUKOCYTOSIS Assessment/Plan ABX CORRECT K LOKELMA IV FLUIDS Plan discussed with: Patient DONALD BOWLING MD Jan 17, 2025 13:36
[2025-01-17] MEDS: SODIUM ZIRCONIUM CYCL 10 GM PAK PO SCH (14:08)
[2025-01-17] MEDS: SIMETHICONE 80 MG CHEWABLE TABLET PO PRN (16:46)
--- NOTE | 2025-01-17 19:15 | DVHINCON2 ---
Consult Note Consult Consult Note Reason for Consult Evaluation of bilateral ankle and foot pain following fall More than a week ago at home. --- History of Present Illness Ms. Hays is an 79 year-old female who sustained a fall at home. She is currently admitted under the hospitalist service for management of other medical issues and was referred for evaluation of bilateral ankle and foot pain. She reports pain localized to both ankles and feet, worsened with weight bearing. Denies open wounds, numbness, or tingling. --- --- Exam General: Patient resting in bed, in no acute distress. Right Ankle/Foot: Tenderness to palpation: medial and lateral malleolus.ATFL, CFL, Mild Edema medial and lateral mal noted Tenderness over the 4th and 5th metatarsal shafts. Edema and ecchymosis noted over dorsal aspect of 4th and 5th metatarsals. No open wounds. Range of motion: full and intact at the ankle. Neurovascular: grossly intact. Left Ankle/Foot: Tenderness to palpation: medial and lateral malleolus with mild edema Tenderness at ATFL, Deltoid Ligament aspect Ecchymosis on plantar surface of foot 4rth and fifth metatarsal shaft aspect. No tenderness over metatarsals. Neurovascular: grossly intact. Gait/Function: Pain of bilateral ankle and bilateral foot reported with weight bearing bilaterally. --- Imaging Bilateral ankle X-rays: Reviewed today, no fracture identified. Bilateral foot X-rays: Ordered, pending. --- Impression Bilateral ankle sprain, right greater than left, with associated midfoot contusion (4th/5th metatarsals right foot). No fracture on initial ankle X-rays. Functional limitation due to pain with ambulation. --- Plan 1. Imaging: Bilateral foot X-rays ordered, pending results. 2. Treatment: Applied lace-up ankle braces bilaterally. Hard-sole shoes placed bilaterally. Weight bearing as tolerated (WBAT) with walker. 3. Pain Management: Continue current inpatient analgesic regimen as per hospitalist. 4. Follow-up: Once bilateral feet xray complated, contact orthopedics for further management . 5. Education: Patient counseled on brace use, safe ambulation, and weight-bearing precautions. Bedside nurse updated and agrees with plan. Patient verbalized understanding, all questions answered Plan discussed with: Patient, Other (bedside nurse) Visit Coding Surgery Date of Service if different f: Jan 17, 2025 Billing Provider: MARKELL LEBRON PAC Surgery Visit Codes: [id number] - INP CONSULT <55 MIN MARKELL LEBRON Jan 17, 2025 19:15
[2025-01-18] VITALS (8 sets, daily range): BP systolic 102–133; BP diastolic 53–66; PULSE 72–88; RESP 16–20; TEMP 98.2–98.6; O2SAT 91–95
[2025-01-18 06:26] LABS: Hematocrit 26.5 % (36.0-46.0); Hemoglobin 9.0 g/dL (12.2-16.2); Mean Corpuscular Hemoglobin 32.4 pg (28.0-32.0); Mean Corpuscular Volume 95.8 fL (80.0-100.0); Nucleated Red Blood Cells % 0.0 %
[2025-01-18 06:45] LABS: Calcium 9.2 mg/dL (8.7-10.4); Chloride 105 mmol/L (98-107); Potassium 4.7 mmol/L (3.5-5.1); Sodium 138 mmol/L (136-145)
[2025-01-18 06:46] LABS: Anion Gap 8 (5-15); Carbon Dioxide 25 mmol/L (20-31)
[2025-01-18 06:51] LABS: BUN/Creatinine Ratio 12.4 (10.0-20.0); Blood Urea Nitrogen 19 mg/dL (9-23)
[2025-01-18 06:53] LABS: Glucose 155 mg/dL (74-106)
--- NOTE | 2025-01-18 08:13 | DVH ---
EXAM: XY R FOOT 3 VIEW XRAY CLINICAL INDICATION: possible Fx/sprains bi laterally TECHNIQUE: XY R FOOT 3 VIEW XRAY Comparison: XY R ANKLE 2 VIEW XRAY on DOS: 01/16/25, XY R ANKLE 3 VIEW on DOS: 07/05/23, XY R FOOT 3 EW XRAY on DOS: 07/05/23, L FOOT COMPLETE XRAY on DOS: 09/27/19 FINDINGS/IMPRESSION: Nondisplaced fracture of the base of the 5th proximal phalanx.
--- NOTE | 2025-01-18 08:22 | DVH ---
EXAM: XY L FOOT 3 VIEW XRAY CLINICAL INDICATION: possible Fx/sprains bi laterally TECHNIQUE: XY L FOOT 3 VIEW XRAY Comparison: XY L ANKLE 2 VIEW XRAY on DOS: 01/16/25, XY R ANKLE 2 VIEW XRAY on DOS: 01/16/25, XY R ANKL E 3 VIEW on DOS: 07/05/23, XY R FOOT 3 VIEW XRAY on DOS: 07/05/23, L FOOT COMPLETE XRAY on DOS: 09/27/19 FINDINGS/IMPRESSION: Mild 1st MTP osteoarthritis The alignment is anatomical. There is no radiopaque foreign body.
[2025-01-18] MEDS: PANTOPRAZOLE 40 MG/10 ML VIAL INJ IV SCH (10:31)
--- NOTE | 2025-01-18 13:09 | DVHPN2 ---
Progress Note - Dictate Date Seen: Jan 18, 2025 Medical Necessity Reason Pt with a Central, PICC or Fol: No Subjective PT PRESENTED WITH NEAR SYNCOPE ABD PAIN WITH CRAMPING DIARRHEA ? FOOD POISONINGH PMH ALEXUS DIABETES CAD S/P PTCA STENT TYPE IV RTA HYPERKALEMIA VASCULOPATHY NEUROPATHY PAD RECURRENT UTI LEUKOCYTOSIS vital signs Vital Sign Date Time Temp Pulse Resp B/P (MAP) Pulse Ox O2 Delivery O2 Flow Rate FiO2 01/18/25 12:58 98.6 86 18 125/56 (79) 94 98.6 01/17/25 20:00 Room Air* 0 21 Total Intake and Output 01/17/25 01/17/25 01/18/25 15:00 23:00 07:00 Intake Total 700 ml 650 ml Balance 700 ml 650 ml medications Current Medications Medications Dose Ordered Sig/Letty Route Start Time Stop Time Status Last Admin Dose Admin Clonidine HCl 0.1 mg BID PO 01/16/25 10:00 01/17/25 23:12 0.1 MG Clopidogrel Bisulfate 75 mg DAILY PO 01/16/25 10:00 01/18/25 10:28 75 MG Patient Own Medication 1 tab HS PRN PO 01/16/25 09:15 UNV Patient Own Medication 1 cap DAILY PO 01/16/25 10:00 UNV EZETIMIBE 5 mg DAILY PO 01/16/25 10:00 01/18/25 10:30 5 MG Tramadol HCl 100 mg BID PRN PO 01/16/25 09:30 01/18/25 03:54 100 MG Patient Own Medication 1 tab DAILY PO 01/16/25 10:00 UNV Patient Own Medication 1 cap DAILY PO 01/16/25 10:00 UNV Patient Own Medication 1,000 mcg DAILY PO 01/16/25 10:00 UNV Patient Own Medication 1 cap DAILY PO 01/16/25 10:00 UNV Patient Own Medication 1 tab DAILY PO 01/16/25 10:00 UNV Ondansetron HCl 4 mg Q4HP PRN IV 01/16/25 09:30 Docusate Sodium 100 mg BIDPRN PRN PO 01/16/25 09:30 Acetaminophen 650 mg Q6HP PRN PO 01/16/25 09:30 Nitroglycerin 0.4 mg Q5MINP PRN SL 01/16/25 09:30 Morphine Sulfate 2 mg Q30M PRN IV 01/16/25 09:30 Lorazepam 1 mg HS PRN PO 01/16/25 10:15 01/17/25 23:19 0.5 MG Cyanocobalamin 1,000 mcg DAILY PO 01/17/25 10:00 01/18/25 10:28 1,000 MCG Diagnostic Test (Pha) 1 strip ACHS 01/16/25 17:00 01/18/25 11:50 1 STRIP Insulin Human Regular ACHS SC 01/16/25 17:00 Dextrose 50 ml UD PRN IV 01/16/25 12:15 Acetaminophen/ Hydrocodone Bitart 1 tab Q4HPRN PRN PO 01/16/25 17:00 01/17/25 20:32 1 TAB Zirconium Oxide 10 gm Q8HR PO 01/17/25 14:00 01/18/25 05:56 10 GM Pantoprazole Sodium 40 mg DAILY IV 01/18/25 10:00 01/18/25 10:31 40 MG Dimethicone 40 mg QIDP PRN PO 01/17/25 15:15 01/17/25 16:46 40 MG laboratory and microbiology Laboratory Tests 01/18/25 05:23 Test 01/18/25 05:23 Range/Units Serum Glucose 155 H 74-106 mg/dL Problem List NEAR SYNCOPE ABD PAIN WITH CRAMPING DIARRHEA ? FOOD POISONINGH PMH ALEXUS DIABETES CAD S/P PTCA STENT TYPE IV RTA HYPERKALEMIA VASCULOPATHY NEUROPATHY PAD RECURRENT UTI LEUKOCYTOSIS Assessment/Plan ABX CORRECT K LOKELMA IV FLUIDS EPOGEN 88226 UNITS Plan discussed with: Patient DONALD BOWLING MD Jan 18, 2025 13:09
--- NOTE | 2025-01-18 15:11 | DVHPN2 ---
Progress Note Date Seen: Jan 18, 2025 Medical Necessity Reason Pt with a Central, PICC or Fol: No Subjective Patient reports: No new complaints Review of Systems: HEENT:Normal, CVS:Normal, RESPIRATORY:Normal, GI:Normal, :Normal, MSK:Normal, NEURO:Normal Objective vital signs Vital Sign Date Time Temp Pulse Resp B/P (MAP) Pulse Ox O2 Delivery O2 Flow Rate FiO2 01/18/25 12:58 98.6 86 18 125/56 (79) 94 98.6 01/18/25 08:00 Room Air* 0 21 Total Intake and Output 01/17/25 01/17/25 01/18/25 15:00 23:00 07:00 Intake Total 700 ml 650 ml Balance 700 ml 650 ml medications Current Medications Medications Dose Ordered Sig/Letty Route Start Time Stop Time Status Last Admin Dose Admin Clonidine HCl 0.1 mg BID PO 01/16/25 10:00 01/17/25 23:12 0.1 MG Clopidogrel Bisulfate 75 mg DAILY PO 01/16/25 10:00 01/18/25 10:28 75 MG Patient Own Medication 1 tab HS PRN PO 01/16/25 09:15 UNV Patient Own Medication 1 cap DAILY PO 01/16/25 10:00 UNV EZETIMIBE 5 mg DAILY PO 01/16/25 10:00 01/18/25 10:30 5 MG Tramadol HCl 100 mg BID PRN PO 01/16/25 09:30 01/18/25 03:54 100 MG Patient Own Medication 1 tab DAILY PO 01/16/25 10:00 UNV Patient Own Medication 1 cap DAILY PO 01/16/25 10:00 UNV Patient Own Medication 1,000 mcg DAILY PO 01/16/25 10:00 UNV Patient Own Medication 1 cap DAILY PO 01/16/25 10:00 UNV Patient Own Medication 1 tab DAILY PO 01/16/25 10:00 UNV Ondansetron HCl 4 mg Q4HP PRN IV 01/16/25 09:30 Docusate Sodium 100 mg BIDPRN PRN PO 01/16/25 09:30 Acetaminophen 650 mg Q6HP PRN PO 01/16/25 09:30 Nitroglycerin 0.4 mg Q5MINP PRN SL 01/16/25 09:30 Morphine Sulfate 2 mg Q30M PRN IV 01/16/25 09:30 Lorazepam 1 mg HS PRN PO 01/16/25 10:15 01/17/25 23:19 0.5 MG Cyanocobalamin 1,000 mcg DAILY PO 01/17/25 10:00 01/18/25 10:28 1,000 MCG Diagnostic Test (Pha) 1 strip ACHS 01/16/25 17:00 01/18/25 11:50 1 STRIP Insulin Human Regular ACHS SC 01/16/25 17:00 Dextrose 50 ml UD PRN IV 01/16/25 12:15 Acetaminophen/ Hydrocodone Bitart 1 tab Q4HPRN PRN PO 01/16/25 17:00 01/17/25 20:32 1 TAB Zirconium Oxide 10 gm Q8HR PO 01/17/25 14:00 01/18/25 13:49 10 GM Pantoprazole Sodium 40 mg DAILY IV 01/18/25 10:00 01/18/25 10:31 40 MG Dimethicone 40 mg QIDP PRN PO 01/17/25 15:15 01/17/25 16:46 40 MG Examination: GENERAL:Normal, HEENT:Normal, NECK:Normal, LUNGS:Normal, CVS:Normal, ABDOMEN:Normal, MSK:Normal, SKIN:Normal, NEURO:Normal, :Normal laboratory and microbiology Laboratory Tests 01/18/25 05:23 Test 01/18/25 05:23 Range/Units Serum Glucose 155 H 74-106 mg/dL Problem List/Assessment/Plan Problem List/Assessment/Plan #1 s/p fall/syncopy ? autonomic failure #2 hyperkalemia: lokelma, dc benazepril, dyazide #3 ckd stage 3 #4 dm: ssi #5 htn #6 bilateral ankle pain: ortho eval #7 cad s/p stents #8 pad #9 anemia #10 ? sepsis with acute gastroenteritis: improved #11 UTI: iv rocephin advance care planning- full code- time spent 19 mins Plan discussed with: Patient My Orders My Orders Orders - INDIA RONDON MD Procedure Category Date Status Time Simethicone Tab PHA 01/17/25 In Process (Mylicon Tab) 15:15 Urine Bacterial KRISTY 01/18/25 Verified Culture 15:09 Ceftriaxone Ivpb PHA 01/18/25 Verified Rocephin 15:15 Ceftriaxone Ivpb PHA 01/19/25 Verified Rocephin 09:00 * Bander Hand CONS 01/18/25 Verified Consult Pantoprazole Tablet PHA 01/19/25 Verified (Protonix Tablet) 06:00 Date of Service: Jan 18, 2025 Billing Provider: INDIA RONDON MD Common Visit Codes: [id number] INP/OBS CARE(HIGH) INDIA RONDON MD Jan 18, 2025 15:11
[2025-01-18] MEDS: cefTRIAXone 1GM/50ML D5W 50 ML IV ONE (16:15)
[2025-01-18] MEDS: DOCUSATE SOD 100 MG CAP PO PRN (21:44)
[2025-01-19] VITALS (9 sets, daily range): BP systolic 134–156; BP diastolic 53–86; PULSE 61–89; RESP 16–20; TEMP 96.5–98.7; O2SAT 92–96
[2025-01-19] MEDS: PANTOPRAZOLE 40 MG TAB PO SCH (05:14)
[2025-01-19] MEDS: cefTRIAXone 1GM/50ML D5W 50 ML IV SCH (09:06)
--- NOTE | 2025-01-19 10:20 | DVHPN2 ---
Subjective doing well, seen at bedside today. Reviewed: Care Plan Changes from previous H/P or p: No Changes General: Per HPI Eyes: No Pain, No Vision change, No Conjunctivae inflammation, No Eyelid inflammation, No Other, No Redness ENT: No Ear pain, No Ear discharge, No Nose pain, No Nose discharge, No Nose congestion, No Mouth pain, No Mouth swelling, No Throat pain, No Throat swelling, No Other Cardiovascular: No Chest Pain, No Palpitations, No Orthopnea, No Paroxysmal Noc. Dyspnea, No Edema, No Lt Headedness, No Other Respiratory: No Cough, No Dry, No Shortness of breath, No SOB with excertion, No Wheezing, No Hemoptysis, No Pleuritic Pain, No Sputum, No Other Gastrointestinal: Nausea; No Vomiting; Abdominal Pain, Diarrhea; No Constipation, No Melena, No Hematochezia, No Other Genitourinary: No Dysuria, No Frequency, No Incontinence, No Hematuria, No Retention, No Other Musculoskeletal: No other, No neck pain, No shoulder pain, No arm pain, No back pain, No hand pain, No leg pain, No foot pain Skin: No Rash, No Lesions, No Jaundice, No Bruising, No Other Objective Vitals Vital Signs Date Time Temp Pulse Resp B/P (MAP) Pulse Ox O2 Delivery O2 Flow Rate FiO2 01/19/25 09:04 154/75 01/19/25 05:00 97.9 86 18 93 97.9 01/18/25 20:00 Room Air* 0 21 Intake/Output Intake and Output 01/19/25 07:00 Intake Total 1750 ml Output Total 100 ml Balance 1650 ml Intake Oral 1750 ml Output Urine Total 100 ml # Voids 4 Exam GEN: Healthy appearing, well-developed, NAD. HEENT: NC/AT; MMM. CV: RRR, no m/r/g. LUNGS: CTAB, no w/r/c. ABD: Soft, NT/ND, NBS, no masses or organomegaly. EXT: skin Warm, well perfused. no rashes. No clubbing, cyanosis, or edema. NEURO: Ambulating with no limitations. No focal deficits. Medications Current Medications Medications Dose Ordered Sig/Letty Route Start Time Stop Time Status Last Admin Dose Admin Clonidine HCl 0.1 mg BID PO 01/16/25 10:00 01/19/25 09:04 0.1 MG Clopidogrel Bisulfate 75 mg DAILY PO 01/16/25 10:00 01/19/25 09:04 75 MG Patient Own Medication 1 tab HS PRN PO 01/16/25 09:15 UNV Patient Own Medication 1 cap DAILY PO 01/16/25 10:00 UNV EZETIMIBE 5 mg DAILY PO 01/16/25 10:00 01/19/25 09:05 5 MG Tramadol HCl 100 mg BID PRN PO 01/16/25 09:30 01/18/25 03:54 100 MG Patient Own Medication 1 tab DAILY PO 01/16/25 10:00 UNV Patient Own Medication 1 cap DAILY PO 01/16/25 10:00 UNV Patient Own Medication 1,000 mcg DAILY PO 01/16/25 10:00 UNV Patient Own Medication 1 cap DAILY PO 01/16/25 10:00 UNV Patient Own Medication 1 tab DAILY PO 01/16/25 10:00 UNV Ondansetron HCl 4 mg Q4HP PRN IV 01/16/25 09:30 Docusate Sodium 100 mg BIDPRN PRN PO 01/16/25 09:30 01/18/25 21:44 100 MG Acetaminophen 650 mg Q6HP PRN PO 01/16/25 09:30 Nitroglycerin 0.4 mg Q5MINP PRN SL 01/16/25 09:30 Morphine Sulfate 2 mg Q30M PRN IV 01/16/25 09:30 Lorazepam 1 mg HS PRN PO 01/16/25 10:15 01/17/25 23:19 0.5 MG Cyanocobalamin 1,000 mcg DAILY PO 01/17/25 10:00 01/19/25 09:04 1,000 MCG Diagnostic Test (Pha) 1 strip ACHS 01/16/25 17:00 01/18/25 17:40 1 STRIP Insulin Human Regular ACHS SC 01/16/25 17:00 Dextrose 50 ml UD PRN IV 01/16/25 12:15 Acetaminophen/ Hydrocodone Bitart 1 tab Q4HPRN PRN PO 01/16/25 17:00 01/18/25 21:43 1 TAB Zirconium Oxide 10 gm Q8HR PO 01/17/25 14:00 01/19/25 05:14 10 GM Dimethicone 40 mg QIDP PRN PO 01/17/25 15:15 01/17/25 16:46 40 MG Ceftriaxone Sodium 50 ml @ 100 mls/hr DAILY@09 IV 01/19/25 09:00 01/19/25 09:06 100 MLS/HR Pantoprazole Sodium 40 mg DAILY@0600 PO 01/19/25 06:00 01/19/25 05:14 40 MG Laboratory Results Laboratory Tests 01/18/25 05:23 Urinalysis Test 01/16/25 07:01 Urine Color Light-yellow (Yellow) Urine Clarity Clear (Clear) Urine pH 5.0 (5.0-9.0) Urine Specific [place] 1.018 (1.001-1.035) Urine Protein Negative (Negative) Urine Ketones Negative (Negative) Urine Blood Negative /uL (Negative) Urine Nitrite 1+ (Negative) H Urine Bilirubin Negative (Negative) Urine Urobilinogen Normal mg/dL (Negative) Urine Leukocyte Esterase 3+ /uL (Negative) Urine RBC 6 /hpf (0 - 4) Urine Microscopic WBC 24 /HPF (0-5) H Urine Squamous Epithelial Cells Few /hpf (<5) Urine Bacteria Few /hpf (None Seen) H Urine Hyaline Casts Few /lpf (0 - 2) Urine Glucose Normal mg/dL (Normal) Labs and/or images reviewed: Labs reviewed by me, Image(s) reviewed by me Assessment/Plan Assessment/Plan 01/19: Today we will need orthostatic vitals, medications that can make orthostatic could include hydrochlorothiazide, Ativan, furosemide, clonidine? Benazepril. Urine culture was ordered but has not been processed, RN to be made aware. s/p fall/syncopy ? autonomic failure hyperkalemia: ruthy bledsoe benazepril, dyazide ckd stage 3 dm: ssi htn bilateral ankle pain: ortho eval cad s/p stents pad anemia sepsis with acute gastroenteritis: improved UTI: iv rocephin Tele Full code Plan discussed with: Patient Date of Service: Jan 19, 2025 Billing Provider: ALYX POSADAS MD Common Visit Codes: [id number] INP/OBS CARE(HIGH) ALYX POSADAS MD Jan 19, 2025 10:20
--- NOTE | 2025-01-19 13:49 | DVHPN2 ---
Progress Note - Dictate Date Seen: Jan 19, 2025 Medical Necessity Reason Pt with a Central, PICC or Fol: No Subjective PT PRESENTED WITH NEAR SYNCOPE ABD PAIN WITH CRAMPING DIARRHEA ? FOOD POISONINGH PMH ALEXUS DIABETES CAD S/P PTCA STENT TYPE IV RTA HYPERKALEMIA VASCULOPATHY NEUROPATHY PAD RECURRENT UTI LEUKOCYTOSIS vital signs Vital Sign Date Time Temp Pulse Resp B/P (MAP) Pulse Ox O2 Delivery O2 Flow Rate FiO2 01/19/25 10:04 134/53 01/19/25 09:00 98.2 61 20 94 98.2 01/19/25 07:30 Room Air* 0 21 Total Intake and Output 01/18/25 01/18/25 01/19/25 15:00 23:00 07:00 Intake Total 450 ml 600 ml 700 ml Output Total 100 ml Balance 450 ml 500 ml 700 ml medications Current Medications Medications Dose Ordered Sig/Letty Route Start Time Stop Time Status Last Admin Dose Admin Clonidine HCl 0.1 mg BID PO 01/16/25 10:00 01/19/25 09:04 0.1 MG Clopidogrel Bisulfate 75 mg DAILY PO 01/16/25 10:00 01/19/25 09:04 75 MG Patient Own Medication 1 tab HS PRN PO 01/16/25 09:15 UNV Patient Own Medication 1 cap DAILY PO 01/16/25 10:00 UNV EZETIMIBE 5 mg DAILY PO 01/16/25 10:00 01/19/25 09:05 5 MG Tramadol HCl 100 mg BID PRN PO 01/16/25 09:30 01/18/25 03:54 100 MG Patient Own Medication 1 tab DAILY PO 01/16/25 10:00 UNV Patient Own Medication 1 cap DAILY PO 01/16/25 10:00 UNV Patient Own Medication 1,000 mcg DAILY PO 01/16/25 10:00 UNV Patient Own Medication 1 cap DAILY PO 01/16/25 10:00 UNV Patient Own Medication 1 tab DAILY PO 01/16/25 10:00 UNV Ondansetron HCl 4 mg Q4HP PRN IV 01/16/25 09:30 Docusate Sodium 100 mg BIDPRN PRN PO 01/16/25 09:30 01/18/25 21:44 100 MG Acetaminophen 650 mg Q6HP PRN PO 01/16/25 09:30 Nitroglycerin 0.4 mg Q5MINP PRN SL 01/16/25 09:30 Morphine Sulfate 2 mg Q30M PRN IV 01/16/25 09:30 Lorazepam 1 mg HS PRN PO 01/16/25 10:15 01/17/25 23:19 0.5 MG Cyanocobalamin 1,000 mcg DAILY PO 01/17/25 10:00 01/19/25 09:04 1,000 MCG Diagnostic Test (Pha) 1 strip ACHS 01/16/25 17:00 01/19/25 11:30 1 STRIP Insulin Human Regular ACHS SC 01/16/25 17:00 01/19/25 11:30 3 UNITS Dextrose 50 ml UD PRN IV 01/16/25 12:15 Acetaminophen/ Hydrocodone Bitart 1 tab Q4HPRN PRN PO 01/16/25 17:00 01/19/25 10:45 1 TAB Zirconium Oxide 10 gm Q8HR PO 01/17/25 14:00 01/19/25 05:14 10 GM Dimethicone 40 mg QIDP PRN PO 01/17/25 15:15 01/17/25 16:46 40 MG Ceftriaxone Sodium 50 ml @ 100 mls/hr DAILY@09 IV 01/19/25 09:00 01/19/25 09:06 100 MLS/HR Pantoprazole Sodium 40 mg DAILY@0600 PO 01/19/25 06:00 01/19/25 05:14 40 MG laboratory and microbiology Laboratory Tests 01/18/25 05:23 Test 01/18/25 05:23 Range/Units Serum Glucose 155 H 74-106 mg/dL Problem List NEAR SYNCOPE ABD PAIN WITH CRAMPING DIARRHEA ? FOOD POISONINGH PMH ALEXUS DIABETES CAD S/P PTCA STENT TYPE IV RTA HYPERKALEMIA VASCULOPATHY NEUROPATHY PAD RECURRENT UTI LEUKOCYTOSIS Assessment/Plan ABX CORRECT K LOKELMA IV FLUIDS EPOGEN [id number] UNITS DC HOME ON [place] HOME MEDS AND IRON Plan discussed with: Patient DONALD BOWLING MD Jan 19, 2025 13:48
[2025-01-19] MEDS: LACTULOSE 20Gm/30ML SOLN PO SCH (19:03)
[2025-01-20 01:00] VITALS: BP 133/58; PULSE 81; RESP 17; TEMP 97.9; O2SAT 94
[2025-01-20 05:00] VITALS: BP 169/72; PULSE 80; RESP 18; TEMP 98.1; O2SAT 92
[2025-01-20 06:59] LABS: Hemoglobin 9.0 g/dL (12.2-16.2); Nucleated Red Blood Cells % 0.0 %
[2025-01-20 07:01] LABS: Hematocrit 26.4 % (36.0-46.0); Mean Corpuscular Hemoglobin 32.6 pg (28.0-32.0); Mean Corpuscular Volume 95.3 fL (80.0-100.0)
[2025-01-20 07:03] LABS: Anion Gap 10 (5-15); Carbon Dioxide 25 mmol/L (20-31); Chloride 104 mmol/L (98-107); Potassium 4.3 mmol/L (3.5-5.1); Sodium 139 mmol/L (136-145)
[2025-01-20 07:05] LABS: Calcium 9.2 mg/dL (8.7-10.4)
[2025-01-20 07:09] LABS: BUN/Creatinine Ratio 16.9 (10.0-20.0)
[2025-01-20 07:11] LABS: Blood Urea Nitrogen 25 mg/dL (9-23); Glucose 168 mg/dL (74-106)
[2025-01-20 07:30] VITALS: PULSE 71; RESP 20; O2SAT 94
[2025-01-20 09:00] VITALS: BP 141/65; PULSE 80; RESP 16; TEMP 97.7; O2SAT 96
[2025-01-20 13:13] VITALS: BP 147/58; PULSE 79; RESP 16; TEMP 97.8; O2SAT 95
[2025-01-20] MEDS ORDERED: SODI10PA PO (14:05)
[2025-01-20] MEDS ORDERED: DOCU-265 PO (14:05)
[2025-01-20] MEDS ORDERED: LACT10SO3 PO (14:05)
[2025-01-20] MEDS ORDERED: CEPH250C PO (14:08)
--- NOTE | 2025-01-20 14:11 | DVHDS2 ---
Discharge Summary Date of Admission Jan 16, 2025 at 09:24 Date of Discharge: Jan 20, 2025 Labs/Diagnostic Data: Laboratory Results Test 01/20/25 11:36 01/20/25 05:29 01/18/25 05:23 01/17/25 05:32 POC Glucose 179 mg/dl (70-106) White Blood Count 6.6 10^3/uL (4.4-10.8) Red Blood Count 2.77 10^6/uL (4.0-5.20) Hemoglobin 9.0 g/dL (12.2-16.2) Hematocrit 26.4 % (36.0-46.0) Mean Corpuscular Volume 95.3 fL (80.0-100.0) Mean Corpuscular Hemoglobin 32.6 pg (28.0-32.0) Mean Corpuscular Hemoglobin Concent 34.2 g/dL (32.0-36.0) Red Cell Distribution Width 14.1 % (11.8-14.3) Platelet Count 444 10^3/uL (140-450) Mean Platelet Volume 9.3 fL (6.9-10.8) Neutrophils (%) (Auto) 54.5 % (37.0-80.0) Lymphocytes (%) (Auto) 31.6 % (10.0-50.0) Monocytes (%) (Auto) 9.5 % (0.0-12.0) Eosinophils (%) (Auto) 3.0 % (0.0-7.0) Basophils (%) (Auto) 1.4 % (0.0-2.0) Neutrophils # (Auto) 3.6 10 ^3/uL (1.6-8.6) Lymphocytes # (Auto) 2.1 10 ^3/uL (0.4-5.4) Monocytes # (Auto) 0.6 10 ^3/uL (0-1.3) Eosinophils # (Auto) 0.2 10 ^3/uL (0-0.8) Basophils # (Auto) 0.1 10 ^3/uL (0-0.2) Nucleated Red Blood Cells 0.0 % Sodium Level 139 mmol/L (136-145) Potassium Level 4.3 mmol/L (3.5-5.1) Chloride Level 104 mmol/L (98-107) Carbon Dioxide Level 25 mmol/L (20-31) Anion Gap 10 (5-15) Blood Urea Nitrogen 25 mg/dL (9-23) Creatinine 1.48 mg/dL (0.550-1.02) Glomerular Filtration Rate Calc 35 mL/min (>90) BUN/Creatinine Ratio 16.9 (10.0-20.0) Serum Glucose 168 mg/dL (74-106) Calcium Level 9.2 mg/dL (8.7-10.4) Hemoglobin A1c 7.4 % A1C (<5.7) Thyroid Stimulating Hormone (TSH) 2.10 uIU/mL (0.55-4.78) Total Bilirubin 0.4 mg/dL (0.2-1.0) Aspartate Amino Transferase (AST) 15 U/L (13-40) Alanine Aminotransferase (ALT) 11 U/L (7-40) Alkaline Phosphatase 51 U/L (46-116) Total Protein 6.7 g/dL (5.7-8.2) Albumin 4.3 g/dL (3.2-4.8) Test 01/16/25 09:03 01/16/25 07:01 01/16/25 04:07 Lactic Acid Level 2.5 mmol/L (0.4-2.0) Urine Color Light-yellow (Yellow) Urine Clarity Clear (Clear) Urine pH 5.0 (5.0-9.0) Urine Specific [place] 1.018 (1.001-1.035) Urine Protein Negative (Negative) Urine Ketones Negative (Negative) Urine Blood Negative /uL (Negative) Urine Nitrite 1+ (Negative) Urine Bilirubin Negative (Negative) Urine Urobilinogen Normal mg/dL (Negative) Urine Leukocyte Esterase 3+ /uL (Negative) Urine RBC 6 /hpf (0 - 4) Urine Microscopic WBC 24 /HPF (0-5) Urine Squamous Epithelial Cells Few /hpf (<5) Urine Bacteria Few /hpf (None Seen) Urine Hyaline Casts Few /lpf (0 - 2) Urine Glucose Normal mg/dL (Normal) Troponin I High Sensitivity 5 ng/L (</=34) Other Laboratory Tests 01/20/25 05:29 Brief Hx & Hospital Course: 79-year-old female with past medical history of hypertension, hyperlipidemia, diabetes, neuropathy, and coronary artery disease, who came to the hospital after a near syncopal event. Patient states she believes she ate some bad food. Last night about 2330 she began to feel ill with stomach cramps. She went to the bathroom. Then laid on the cool tile because she was feeling nauseated. While laying down she needed to go to the bathroom. She was able to get to the toilet, had diarrhea. When standing back up, she began to get dizzy, everything went black and she went down to the ground. She states she was able to ease down to the ground and did not hit her head. When she went down she did hurt both of her ankles. Patient does live alone, and she called EMS for assistance 01/19: Today we will need orthostatic vitals, medications that can make orthostatic could include hydrochlorothiazide, Ativan, furosemide, clonidine? Benazepril. Urine culture was ordered but has not been processed, RN to be made aware. 01/20: Patient orthostatics negative, Telemetry without concern. she is ambulating feeling better. Medication changes and Lokelma have improved potassium level. We will continue Lokelma at home as per PCP guidance. We will continue some blood pressure medications as blood pressure has been rising in the hospital. We will discontinue hydrochlorothiazide can cause orthostatic hypotension. Patient is encouraged to wear Leoncio hose stockings while ambulating. See discharge plan below. vital signs stable for discharge as per plan below. Diagnosis: syncopy, autonomic failure and/or iatrogenic polypharmacy hyperkalemia ckd stage 3 dm htn bilateral ankle pain cad s/p stents pad anemia sepsis with acu, improved UTI Discharge plan - Stops Hydrochlorothiazide, continue benazepril, continue propranolol. - continue other home medications - Use Leoncio hose stockings for ambulation. - Start Lokelma daily for 14 days, follow up with PCP to repeat potassium level. further refills after potassium level recheck and through PCP. - start lactulose 10 g daily for 7 days, continue docusate 100 mg twice daily for 30 days - Start Keflex 500 mg, twice daily, for 5 days. Condition at Discharge: Stable Final Diagnosis/Problems List syncopy, autonomic failure and/or iatrogenic polypharmacy hyperkalemia ckd stage 3 dm htn bilateral ankle pain cad s/p stents pad anemia sepsis with acu, improved UTI Discharge Disposition: Home Discharge Instruct/Medications Diet: Consistent carbohydrate, Cardiac 2g Na,low cholest Activity: No Restrictions, As Tolerated Follow Up/Referral: See below Medications: See below Scheduled Benazepril Hcl (Benazepril Hcl), 1 TAB PO DAILY, (Reported) Cephalexin (Keflex Capsule), 2 CAP PO BID Cholecalciferol (Vitamin D3), 1 CAP PO DAILY, (Reported) Clonidine Hydrochloride (Clonidine Hcl), 0.1 MG PO BID, (Reported) Clopidogrel Bisulfate (Plavix), 1 TAB PO DAILY, (Reported) Cyanocobalamin (Vitamin B12), 1,000 MCG PO DAILY, (Reported) Docusate Sodium (Docusate Sodium), 100 MG PO BID Ezetimibe (Ezetimibe), 0.5 TAB PO DAILY, (Reported) Hydrochlorothiazide W/Triamter (Triamterene/Hydrochloroth), 1 CAP PO DAILY, (Reported) Lactulose (Lactulose), 10 GM PO DAILY Magnesium Oxide (Magnesium Oxide), 1 TAB PO DAILY, (Reported) Metformin Hydrochloride (Metformin Hcl), 1 TAB PO QAM, (Reported) Metformin Hydrochloride (Metformin Hcl), 1 TAB PO QPM, (Reported) Omeprazole (Omeprazole Dr), 1 CAP PO DAILY, (Reported) Potassium Chloride (Potassium Chloride ER), 1 TAB PO DAILYPRN, (Reported) Propranolol HCl (Propranolol Hydrochloride), 5 MG PO QPM, (Reported) Simvastatin (Simvastatin), 1 TAB PO QPM, (Reported) Sitagliptin Phosphate (Januvia), 1 TAB PO QPM, (Reported) Sodium Zirconium Cyclosilicate (Lokelma), 10 GM PO DAILY Scheduled PRN Baclofen (Baclofen), 20 MG PO HS PRN for FOR MUSCLE SPASM, (Reported) Furosemide (Furosemide), 1 TAB PO DAILY PRN for PERIPHERAL EDEMA, (Reported) Gabapentin (Gabapentin), 1 CAP PO TID PRN for NEUROPATHY, (Reported) Lorazepam (Ativan), 1 TAB PO HS PRN for INSOMNIA, (Reported) Tramadol Hcl (Tramadol Hcl), 100 MG PO BID PRN, (Reported) Discontinued Medications Benazepril HCl (Benazepril Hydrochloride), 1 TAB PO, (Reported) Famotidine (Pepcid Tablet), 1 TAB PO QPM, (Reported) Discharge Statement: "Patient was advised to return to the ER or call 911 if any headaches, dizziness, shortness of breath, chest pain, abdominal pain, bleeding, fevers, or worsening of medical condition. Patient was counseled about treatment plan, medications, possible side effects, patientverbalized understanding. All questions were answered to the best of my ability. This discharge took greater then 30 minutes in planning, reviewing documentation, counseling the patient, and discussing with other team members." Date of Service: Jan 20, 2025 Billing Provider: ALYX POSADAS MD Common Visit Codes: 87433-LFJ/OBS DISCH DAY >30min ALYX POSADAS MD Jan 20, 2025 14:11
[2025-01-20 15:34] VITALS: BP 147/58; PULSE 79; RESP 16; TEMP 97.8; O2SAT 95
== END 2025-01-20 15:00 | disposition home or self-care (01) | DRG 871 ==
LOC: ER 01:39 → EDBD 01:39 → OVERFLOW 09:24 → TELE-CENTR 18:10
PROVIDERS: ADMIT Student in an Organized Health Care Education/Training Program; ATTEND Student in an Organized Health Care Education/Training Program
DX: A41.9 Sepsis, unspecified organism (principal); N17.0 Acute kidney failure with tubular necrosis; N39.0 Urinary tract infection, site not specified; E87.5 Hyperkalemia; I25.10 Atherosclerotic heart disease of native coronary artery without angina pectoris; E78.5 Hyperlipidemia, unspecified; G47.33 Obstructive sleep apnea (adult) (pediatric); N18.30 Chronic kidney disease, stage 3 unspecified; E11.40 Type 2 diabetes mellitus with diabetic neuropathy, unspecified; K52.9 Noninfective gastroenteritis and colitis, unspecified; D64.9 Anemia, unspecified; E11.22 Type 2 diabetes mellitus with diabetic chronic kidney disease; I12.9 Hypertensive chronic kidney disease with stage 1 through stage 4 chronic kidney disease, or unspecified chronic kidney disease; K21.9 Gastro-esophageal reflux disease without esophagitis; Z95.5 Presence of coronary angioplasty implant and graft; Z90.710 Acquired absence of both cervix and uterus; Z88.0 Allergy status to penicillin; Z88.2 Allergy status to sulfonamides; G90.89 Other disorders of autonomic nervous system; E86.9 Volume depletion, unspecified
CPT/HCPCS: 36415; 71045; 73600; 73630; 80048; 80053; 81001; 82962; 83036; 83605; 84132; 84443; 84484; 85025; 87086; 94640; 96361; 96365; 96375; 97110; 97116; 97163; 97530; G0378; J1815; J2470; J3490

== ENCOUNTER 2025-01-22 14:47 | Inpatient (IN) | payer MEDICARE, BC ==
[~2025-01-22] VITALS: Ht 172.7 cm; Wt 68.8 kg
[~2025-01-22 14:47] MED LIST changes: +BENA40TA71 PO; -BENA40TA83 PO; +CEPH250C PO; +DOCU-265 PO; +EZET-10 PO; -FAMO20TA10 PO; +LACT10SO3 PO; +SODI10PA PO; +TRAM50TA2 PO
--- NOTE | 2025-01-22 15:24 | ED.PDOC ---
HPI Comments This is a 79-year-old female with past medical history of coronary artery disease (status post stent, 5 years back), diabetes, diabetic neuropathy, dyslipidemia, hypertension, GERD, BIBA to the hospital due to chest pain. Pain is localized at epigastric area radiating to the left shoulder, describes as heaviness, intermittent, 9/10 in intensity, with no clear exacerbating or relieving factor she also reports of nausea, palpitation, dizziness and sweating. She denies fever, shortness of breath, headache, or any recent chest trauma/sick contact. Upon EMS arrival at patient's home, the patient was given 2 nitroglycerin sublingual tablet which improved the pain. She also taken 4 tablets of aspirin at home. Previous hospitalization: Patient was recently discharged (2 days back), from the hospital, had admitted due to loss of consciousness and ankle sprain, upon admission she was found to have hyperkalemia Home medication: Benazepril, duloxetine, ezetimibe, metformin, Januvia, propranolol, Plavix, omeprazole Chief Complaint: Chest Pain Time Seen by MD: 14:49 Reviewed Notes: Trailer Park Manager Notes Allergies: Coded Allergies: Penicillins (Verified Allergy, Intermediate, RASH, 06/28/23) Sulfa Antibiotics (Verified Allergy, Unknown, STOMACH UPSET, 06/28/23) Home Meds Active Scripts Cephalexin (KEFLEX CAPSULE) 250 Mg Cp, 2 CAP PO BID for 5 Days, #20 CAP Prov:ALYX POSADAS MD 01/20/25 Docusate Sodium (Docusate Sodium) 100 Mg Cap, 100 MG PO BID for 30 Days, #60 CAP 0 Refills Prov:ALYX POSADAS MD 01/20/25 Lactulose (Lactulose) 10 Gm/15 Ml Sariah, 10 GM PO DAILY for 7 Days, #100 ML 0 Refills Prov:ALYX POSADAS MD 01/20/25 Sodium Zirconium Cyclosilicate (Lokelma) 10 Gm Brian, 10 GM PO DAILY for 14 Days, #14 PACK 0 Refills Prov:ALYX POSADAS MD 01/20/25 Reported Medications Tramadol Hcl (Tramadol Hcl) 50 Mg Tab, 100 MG PO BID PRN, TAB 01/16/25 Ezetimibe (Ezetimibe) 10 Mg Tab, 0.5 TAB PO DAILY 01/16/25 Benazepril Hcl (Benazepril Hcl) 40 Mg Tab, 1 TAB PO DAILY 01/16/25 Clopidogrel Bisulfate (Plavix) 75 Mg Tab, 1 TAB PO DAILY for ANGIOPLASTY/BLOOD THINNER 07/01/23 Cyanocobalamin (Vitamin B12) 1,000 Mcg Tab, 1000 MCG PO DAILY, TAB 06/28/23 Clonidine Hydrochloride (Clonidine Hcl) 0.1 Mg Tab, 0.1 MG PO BID for B/P SYS >160, MG 06/28/23 Baclofen (Baclofen) 10 Mg Tab, 20 MG PO HS PRN for FOR MUSCLE SPASM, MG 06/28/23 Omeprazole (Omeprazole Dr) 40 Mg Cap, 1 CAP PO DAILY for GERD 02/11/23 Simvastatin (Simvastatin) 20 Mg Tab, 1 TAB PO QPM for HIGH CHOLESTEROL 02/11/23 Lorazepam (Ativan) 1 Mg Tab, 1 TAB PO HS PRN for INSOMNIA 02/10/23 Gabapentin (Gabapentin) 300 Mg Cap, 1 CAP PO TID PRN for NEUROPATHY 02/10/23 Cholecalciferol (VITAMIN D3) 5,000 Unit Cap, 1 CAP PO DAILY for SUPPLEMENT 02/10/23 Potassium Chloride (Potassium Chloride ER) 20 Meq Tab, 1 TAB PO DAILYPRN for WHEN TAKING LASIX 02/10/23 Furosemide (Furosemide) 20 Mg Tab, 1 TAB PO DAILY PRN for PERIPHERAL EDEMA 02/10/23 Magnesium Oxide (MAGNESIUM OXIDE) 400 Mg Tab, 1 TAB PO DAILY for SUPPLEMENT 12/19/18 Sitagliptin Phosphate (Januvia) 100 Mg Tab, 1 TAB PO QPM for DIABETES HOLD MEDICATION X 48hr. MAY RESUME ON Wednesday02/13/23 11/15/18 Metformin Hydrochloride (Metformin Hcl) 850 Mg Tab, 1 TAB PO QPM for DIABETES HOLD MEDICATION X 48 hrs. MAY RESUME ON Wednesday02/13/23. 01/15/18 Propranolol HCl (Propranolol Hydrochloride) 10 Mg Tab, 5 MG PO QPM for HYPERTENSION 01/15/18 Metformin Hydrochloride (Metformin Hcl) 500 Mg Tab, 1 TAB PO QAM for DIABETES HOLD MEDICATION X 48 hrs. MAY RESUME ON Wednesday02/13/23. 01/15/18 Discontinued Reported Medications Hydrochlorothiazide W/Triamter (Triamterene/Hydrochloroth) 1 Cap Cap, 1 CAP PO DAILY, CAP 01/16/25 Benazepril HCl (Benazepril Hydrochloride) 40 Mg Tab, 1 TAB PO for HYPERTENSION 02/11/23 Famotidine (PEPCID TABLET) 20 Mg Tb, 1 TAB PO QPM for GERD 07/14/16 Information Source: Friend Mode of Arrival: EMS Severity: Moderate Timing: Hours Duration: Hours Prehospital treatment: 12 Lead EKG (EKG at scene by EMS showed normal sinus rhythm with ST depression at lateral leads.) Quality: Tightness Onset: At Rest Cardiac Risk Factors: Hyperlipidemia, HTN, Diabetes History of: Angioplasty Associated Signs and Symptoms: Palpitations, Diaphoresis, N/V, Heartburn Past Medical History PAST MEDICAL HISTORY: CAD, DM, GERD, High Lipids, HTN Surgical History: Hysterectomy, PTCA FUNERAL PROFESSIONAL History: No Pertinent FUNERAL PROFESSIONAL History Family History Family History: Family hx of heart feliciano Social History Smoker: Non-Smoker Alcohol: Denies ETOH Use Drugs: Denies Drug Use Lives In: Home Constitutional: reports: diaphoresis; denies: chills, fatigue, fever, malaise, sweats, weakness, others EENTM: denies: blurred vision, double vision, ear bleeding, ear discharge, ear drainage, ear pain, ear ringing, eye pain, eye redness, hearing loss, mouth pain, mouth swelling, nasal discharge, nose bleeding, nose congestion, nose pain, photophobia, tearing, throat pain, throat swelling, voice changes, others Respiratory: denies: cough, hemoptysis, orthopnea, SOB at rest, shortness of breath, SOB with excertion, stridor, wheezing, others Cardiovascular: reports: chest pain, diaphoresis, left arm pain, palpitations; denies: dizzy spells, Dyspnea on exertion, edema, irregular heart beat, lightheadedness, PND, syncope, others Gastrointestinal: denies: abdomen distended, abdominal pain, blood streaked bowels, constipated, diarrhea, dysphagia, difficulty swallowing, hematemesis, melena, nausea, poor appetite, poor fluid intake, rectal bleeding, rectal pain, vomiting, others Genitourinary: denies: abnormal vagina bleeding, burning, dyspareunia, dysuria, flank pain, frequency, hematuria, incontinence, pain, , vagina discharge, urgency, others Neurological: denies: dizziness, fainting, headache, left sided numbness, left sided weakness, numbness, paresthesia, pre-existing deficit, right sided numbness, right sided weakness, seizure, speech problems, tingling, tremors, weakness, others Musculoskeletal: denies: back pain, gout, joint pain, joint swelling, muscle pain, muscle stiffness, neck pain, others Integumetry: denies: bruises, change in color, change in hair/nails, dryness, laceration, lesions, lumps, rash, wounds, others Allergic/Immunocompromised: denies: Difficulty Healing, Frequent Infections, Hives, Itching, others Hematologic/Lymphatic: denies: anemia, blood clots, easy bleeding, easy bruising, swollen glands, others Endocrine: denies: excessive hunger, excessive sweating, excessive thirst, excessive urination, flushing, intolerance to cold, intolerance to heat, unexplained weight gain, unexplained weight loss, others Psychiatric: denies: anxiety, bipolar disorder, depression, hopeless, panic disorder, schizophrenia, sleepless, suicidal, others Physical Exam General Appearance: No Apparent Distress, Normal HEENT: Normal ENT Inspection, Pharynx Normal, TMs Normal Neck: Full Range of Motion, Non-Tender, Normal, Normal Inspection Respiratory: Chest Non-Tender, Lungs Clear, No Accessory Muscle Use, No Respiratory Distress, Normal Breath Sounds Cardiovascular: No Edema, No JVD, No Murmur, No Gallop, Normal Peripheral Pulses, Regular Rate/Rhythm Breast Exam: Deferred Gastrointestinal: No Organomegaly, Non Tender, No Pulsatile Mass, Normal Bowel Sounds, Soft Genitalia: Deferred Pelvic: Deferred Rectal: Deferred Extremities: No calf tenderness, Normal capillary refill, Normal inspection, Normal range of motion, Non-tender, No pedal edema Neurologic: Alert, wire wrapping 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 Was a procedure done? Was a procedure done?: No CP Differential Dx Differential Diagnosis: Angina, Heart Failure Differential Diagnosis: HTN Essential Differential Diagnosis: Chest Wall Pain, Esophageal reflux/spasm, Gastritis, Myocardial Infarction, Pneumonia X-Ray, Labs, Meds, VS Vital Signs Date Time Temp Pulse Resp B/P (MAP) Pulse Ox O2 Delivery O2 Flow Rate FiO2 01/22/25 20:00 89 01/22/25 19:43 75 17 96 Room Air* 0 21 21 01/22/25 19:07 74 01/22/25 18:49 75 19 177/81 (113) 97 01/22/25 15:54 79 01/22/25 14:52 77 01/22/25 14:47 98.2 96 18 120/75 97 98.2 Lab Test 01/22/25 18:24 01/22/25 16:15 01/22/25 15:27 Range/Units Troponin I High Sensitivity 1896 *H 807 *H 381 *H </=34 ng/L White Blood Count 9.6 # 4.4-10.8 10^3/uL Red Blood Count 3.16 L 4.0-5.20 10^6/uL Hemoglobin 10.2 L 12.2-16.2 g/dL Hematocrit 29.8 #L 36.0-46.0 % Mean Corpuscular Volume 94.3 80.0-100.0 fL Mean Corpuscular Hemoglobin 32.2 H 28.0-32.0 pg Mean Corpuscular Hemoglobin Concent 34.1 32.0-36.0 g/dL Red Cell Distribution Width 14.2 11.8-14.3 % Platelet Count 608 H 140-450 10^3/uL Mean Platelet Volume 9.1 6.9-10.8 fL Neutrophils (%) (Auto) 75.2 37.0-80.0 % Lymphocytes (%) (Auto) 15.1 10.0-50.0 % Monocytes (%) (Auto) 6.6 0.0-12.0 % Eosinophils (%) (Auto) 1.8 0.0-7.0 % Basophils (%) (Auto) 1.3 0.0-2.0 % Neutrophils # (Auto) 7.2 1.6-8.6 10 ^3/uL Lymphocytes # (Auto) 1.4 0.4-5.4 10 ^3/uL Monocytes # (Auto) 0.6 0-1.3 10 ^3/uL Eosinophils # (Auto) 0.2 0-0.8 10 ^3/uL Basophils # (Auto) 0.1 0-0.2 10 ^3/uL Nucleated Red Blood Cells 0.0 % Sodium Level 136 136-145 mmol/L Potassium Level 4.5 3.5-5.1 mmol/L Chloride Level 100 98-107 mmol/L Carbon Dioxide Level 24 20-31 mmol/L Anion Gap 12 5-15 Blood Urea Nitrogen 31 H 9-23 mg/dL Creatinine 1.78 H 0.550-1.02 mg/dL Glomerular Filtration Rate Calc 28 >90 mL/min BUN/Creatinine Ratio 17.4 10.0-20.0 Serum Glucose 156 H 74-106 mg/dL Calcium Level 9.3 8.7-10.4 mg/dL Magnesium Level 2.2 1.6-2.6 mg/dL Total Bilirubin 0.3 0.2-1.0 mg/dL Aspartate Amino Transferase (AST) 22 13-40 U/L Alanine Aminotransferase (ALT) 13 7-40 U/L Alkaline Phosphatase 56 46-116 U/L B-Type Natriuretic Peptide 174.07 0-100 pg/mL Total Protein 7.7 5.7-8.2 g/dL Albumin 4.6 3.2-4.8 g/dL Time of 1ST Reevaluation: 15:00 Reevaluation 1ST: Improved Time of 2ND Reevaluation: 16:00 Reevaluation 2ND: Improved Patient Education/Counseling: Diagnosis, Treatment, Prognosis, Need For Follow Up Family Education/Counseling: No Family Present Comments Patient was admitted due to chest pain. The patient has taken 4 tablets of aspirin and sublingual nitroglycerin at home, which improved chest pain. EKG which was performed by EMS showed sinus rhythm with ST depression at lateral leads. EKG performed at hospital also showed ST-depression at lateral and inferior leads. Troponin I was raised at 380s. Cardiology consulted Patient given atorvastatin Subsequent EKGs showed same findings. Patient will be admitted for further cardiology workup and expiratory wheezing. SEPSIS Sepsis Screen Physician Orders Electrocardigram (01/22/25 15:03) Electrocardigram (01/22/25 16:03) Electrocardigram (01/22/25 18:03) Chest Xray 1 View (01/22/25 15:20) * Cardiology Consult (01/22/25 17:34) Admit (01/22/25 19:58) Nitroglycerin Sublingual (Ntrostat Subli (01/22/25 20:00) Morphine Sulfate Injection (01/22/25 20:00) Stat Ekg For Chest Pain (01/22/25 19:58) Notify Of Changes From Base (01/22/25 19:58) Ice Cream Shop Associate For 24 Hours (01/22/25 19:58) Emergency Dysrhythmia Protocol (01/22/25 19:58) Rhythm Strips Once Every Shift (01/22/25 19:58) Oxygen By Nasal Cannula (01/22/25 19:58) Aspirin Tablet (01/23/25 10:00) Atorvastatin (Lipitor) (01/22/25 22:00) Furosemide Tablet (Lasix Tablet) (01/23/25 10:00) Benazepril Hcl Tablet (Lotensin Tablet) (01/23/25 10:00) Enoxaparin Sodium (Lovenox) (01/22/25 20:15) PTPTT (01/22/25 20:04) Basic Metabolic Panel (01/23/25 04:00) Glucose Blood (Accu-Chek Comfort Curve T (01/23/25 00:00) Mild Sliding Scale Npo - Q6hr (01/23/25 00:00) Dextrose 50% Syringe (01/22/25 20:15) Ondansetron Hcl (Zofran) (01/22/25 20:15) Complete Blood Count (01/23/25 04:00) Cardiac Diet-2gna,Lofat,Lochol (01/23/25 Breakfast) Echo 2d Mode Cardiac Dop (01/22/25 20:04) Condition: Fair (01/22/25 20:04) Bedrest With Bathroom Privileg (01/22/25 20:04) Clopidogrel Bisulfate (Plavix) (01/23/25 10:00) Vital Signs Date Time Temp Pulse Resp B/P (MAP) Pulse Ox O2 Delivery O2 Flow Rate FiO2 01/22/25 20:00 89 01/22/25 19:43 75 17 96 Room Air* 0 21 21 01/22/25 19:07 74 01/22/25 18:49 75 19 177/81 (113) 97 01/22/25 15:54 79 01/22/25 14:52 77 01/22/25 14:47 98.2 96 18 120/75 97 98.2 Laboratory Tests Test 01/22/25 15:27 White Blood Count 9.6 10^3/uL (4.4-10.8) # Departure 1 Departure Time of Disposition: 17:20 Impression: Primary Impression: Acute myocardial infarction Additional Impression: Chest pain Disposition: ADMITTED INPATIENT Admit to: Tele Condition: Guarded Critical Care Note Critical Care Time?: No Stability Stability form required: No Heart Score Heart Score: Heart Score Response (Comments) Value History Highly Suspicious 2 EKG Repolarization Disturb 1 Age >65 2 Risk Factors >3 or Hx ASHD 2 Troponin >3 x's Normal limit 2 Total 9 HANH STOCKTON RESDIENT Jan 22, 2025 15:24
[2025-01-22 15:44] LABS: Hemoglobin 10.2 g/dL (12.2-16.2); Nucleated Red Blood Cells % 0.0 %
[2025-01-22 15:46] LABS: Hematocrit 29.8 % (36.0-46.0); Mean Corpuscular Hemoglobin 32.2 pg (28.0-32.0); Mean Corpuscular Volume 94.3 fL (80.0-100.0)
--- NOTE | 2025-01-22 15:56 | DVH ---
CHEST RADIOGRAPH Indication: PNEUMONIA Technique: Single frontal view of the chest was obtained Comparison: XY CHEST PORTABLE on DOS: 01/16/25, CHEST TWO VIEWS ROUTINE on DOS: 12/04/20 FINDINGS: Lines and Tubes: None Lungs: No focal consolidation. Pleura: No effusion. No pneumothorax. Cardiomediastinal contours: Unremarkable Bones: No acute osseous abnormality. IMPRESSION: 1. No acute cardiopulmonary disease. 2. No significant change from 2024.
[2025-01-22 16:01] LABS: Alanine Aminotransferase 13 U/L (7-40); Albumin 4.6 g/dL (3.2-4.8); Alkaline Phosphatase 56 U/L (46-116); Anion Gap 12 (5-15); BUN/Creatinine Ratio 17.4 (10.0-20.0); Calcium 9.3 mg/dL (8.7-10.4); Carbon Dioxide 24 mmol/L (20-31); Chloride 100 mmol/L (98-107); Magnesium 2.2 mg/dL (1.6-2.6); Potassium 4.5 mmol/L (3.5-5.1); Total Protein 7.7 g/dL (5.7-8.2)
[2025-01-22 16:07] LABS: Bilirubin, Total 0.3 mg/dL (0.2-1.0); Blood Urea Nitrogen 31 mg/dL (9-23); Glucose 156 mg/dL (74-106); Sodium 136 mmol/L (136-145)
[2025-01-22] MEDS: MORPHINE SULFATE INJ 2 MG/ml SYRG IV ONE (17:05)
[2025-01-22] MEDS: BENAZEPRIL HCL 10 MG TAB PO ONE (17:06)
[2025-01-22] MEDS: PANTOPRAZOLE 40 MG/10 ML VIAL INJ IV ONE (17:06)
[2025-01-22] MEDS: ACETAMINOPHEN 325 MG TAB PO ONE (17:06)
[2025-01-22] MEDS: ATORVASTATIN 20 MG TAB PO ONE (17:06)
[2025-01-22 19:43] VITALS: PULSE 75; RESP 17; O2SAT 96
[2025-01-22] MEDS ORDERED: MORPHINE SULFATE INJ 2 MG/ml SYRG IV PRN (20:00)
[2025-01-22] MEDS ORDERED: ONDANSETRON HCL 4 MG/2 ML VIAL IV PRN (20:15)
[2025-01-22] MEDS ORDERED: DEXTROSE (50%) 50ML SYRG IV PRN (20:15)
[2025-01-22] MEDS: ENOXAPARIN SOD 100 MG/1 ML SYRINGE SC ONE (20:56)
[2025-01-22 21:42] LABS: INR 0.98 (0.9-1.15); Partial Thromboplastin Time 25.6 SEC (24.5-34.5); Prothrombin Time 10.4 sec (9.3-11.8)
--- NOTE | 2025-01-22 21:42 | DVHHP2 ---
History of Present Illness Reason for Visit: Chest pain History of Present Illness 79-year-old female presents for evaluation of chest pain. Patient endorses a one day history of substernal nonradiating chest pain denies shortness for breath, nausea or vomiting. She states his symptoms lasted until EMS went to pick her up. No other acute complaints reported. Past Medical History Dyslipidemia, hypertension, diabetes mellitus, CAD Past Surgical History Hysterectomy, PTCA Family History Heart disease Smoke: No ALCOHOL: none Drugs: None Lives: with Family Review of Systems Review of Systems Review of systems are currently negative otherwise addressed in HPI. Allergies: Coded Allergies: Penicillins (Verified Allergy, Intermediate, RASH, 06/28/23) Sulfa Antibiotics (Verified Allergy, Unknown, STOMACH UPSET, 06/28/23) Medications Current Medications Medications Dose Ordered Sig/Letty Route Start Time Stop Time Status Last Admin Dose Admin Nitroglycerin 0.4 mg Q5MINP PRN SL 01/22/25 20:00 Morphine Sulfate 2 mg Q30M PRN IV 01/22/25 20:00 Aspirin 162 mg DAILY PO 01/23/25 10:00 Atorvastatin Calcium 20 mg HS PO 01/22/25 22:00 Furosemide 20 mg DAILY PO 01/23/25 10:00 Benazepril HCl 40 mg DAILY PO 01/23/25 10:00 Diagnostic Test (Pha) 1 strip Q6HR 01/23/25 00:00 Insulin Human Regular Q6HR SC 01/23/25 00:00 Dextrose 50 ml UD PRN IV 01/22/25 20:15 Ondansetron HCl 4 mg Q4HP PRN IV 01/22/25 20:15 Clopidogrel Bisulfate 75 mg DAILY PO 01/23/25 10:00 Exam Vital Signs Vital Signs Date Time Temp Pulse Resp B/P (MAP) Pulse Ox O2 Delivery O2 Flow Rate FiO2 01/22/25 20:22 98.7 70 18 159/69 (99) 98 98.7 01/22/25 19:43 Room Air* 0 21 21 Exam Gen: 79-year-old female in mild distress Skin: Warm, dry, normal color and texture, no rash. HEENT: Normocephalic atraumatic, mucous membranes moist and pink. Neck: Cervical and supraclavicular nodes normal without enlargement, trachea is midline, thyroid gland is normal without masses. Pulmonary: Clear to auscultation and percussion bilaterally. Cardiac: Regular rate and rhythm. No murmur Abdomen: Soft, nontender, nondistended, bowel sounds present all 4 quadrants, no guarding, no rigidity, no organomegaly. Extremities: No cyanosis, clubbing, no edema Neuro: Cranial nerves II through XII grossly intact, normal affect and speech, no focal motor deficits. Labs/Xrays ORDERING PHYSICIAN: DONALD BOWLING MD PROCEDURE(s): ECIDC - ECHO 2D MODE CARDIAC DOP REASON: I73.9,I10 ORDER NUMBER(s): [id number], ACCESSION NUMBER(s): [id number] APPROVED REPORT EXAM: Two-dimensional and M-mode echocardiogram with Doppler and color Doppler. DIMENSIONS LVDd 4.0 (3.8-5.7cm) LA (2D) 5.6 (1.9-4.0cm) Aortic Root 3.0 (2.0- 3.7cm) LVDs 2.4 (2.5-4.0cm) LA (MM) (1.9-4.0cm) Aortic Cusp Exc 1.4 (1.5- 2.0cm) EF (%) 69.0 (55-70%) Rt. Atrium 3.5 (1.9-4.0cm) Asc. Aorta 3.5 cm IVSd 1.2 (0.7-1.1cm) RV (D) 3.8 (1.8-2.4cm) PWd 1.2 (0.7-1.1cm) Mitral Valve Mitral Mitral Stenosis E wave 1.41m/s MV Mean GR. 4mmHg A wave 1.61m/s MV Peak GR. 113mmHg E/A ratio 0.9 2D MVA cm2 DECEL Time 204ms PRESS 1/2 Time 89ms IVRT ms Dop MVA 2.48cm2 Aortic Valve Aortic Valve Aortic Stenosis V1 0.98m/s AO Mean GR. 3mmHg V2 1.31m/s AO Peak GR. 7mmHg Pulmonic Valve V2 0.93m/s Tricuspid Valve TR Velocity 1.87m/s RVSP 26mmHg LEFT VENTRICLE The Ejection Fraction is >55%. ATRIA The left atrium is mildly dilated. The right atrium size is normal. MITRAL VALVE Mitral annular calcification is moderate. Mitral regurgitation is moderate. PULMONIC VALVE The pulmonic valve is not well visualized. There is mild pulmonic valvular regurgitation. TRICUSPID VALVE The tricuspid valve is grossly normal. There is trace tricuspid regurgitation. AORTIC VALVE The aortic valve is mildlysclerotic. GREAT VESSELS The aortic root is normal size. PERICARDIAL EFFUSION There is no pericardial effusion. Other Information Technically limited study due to body habitus. Conclusion LVH LAE EF >60% MOD MR MILD MAC MILD PI MILD AV SCLEROSIS ORDERING PHYSICIAN: HANH STOCKTON PROCEDURE(s): CXR1 - CHEST XRAY 1 VIEW REASON: PNEUMONIA ORDER NUMBER(s): [id number], ACCESSION NUMBER(s): [id number] CHEST RADIOGRAPH Indication: PNEUMONIA Technique: Single frontal view of the chest was obtained Comparison: XY CHEST PORTABLE on DOS: 01/16/25, CHEST TWO VIEWS ROUTINE on DOS: 12/04/20 FINDINGS: Lines and Tubes: None Lungs: No focal consolidation. Pleura: No effusion. No pneumothorax. Cardiomediastinal contours: Unremarkable Bones: No acute osseous abnormality. IMPRESSION: 1. No acute cardiopulmonary disease. 2. No significant change from 2024. Labs Test 01/22/25 20:58 01/22/25 18:24 01/22/25 15:27 Range/Units Troponin I High Sensitivity 1896 *H </=34 ng/L White Blood Count 9.6 # 4.4-10.8 10^3/uL Red Blood Count 3.16 L 4.0-5.20 10^6/uL Hemoglobin 10.2 L 12.2-16.2 g/dL Hematocrit 29.8 #L 36.0-46.0 % Mean Corpuscular Volume 94.3 80.0-100.0 fL Mean Corpuscular Hemoglobin 32.2 H 28.0-32.0 pg Mean Corpuscular Hemoglobin Concent 34.1 32.0-36.0 g/dL Red Cell Distribution Width 14.2 11.8-14.3 % Platelet Count 608 H 140-450 10^3/uL Mean Platelet Volume 9.1 6.9-10.8 fL Neutrophils (%) (Auto) 75.2 37.0-80.0 % Lymphocytes (%) (Auto) 15.1 10.0-50.0 % Monocytes (%) (Auto) 6.6 0.0-12.0 % Eosinophils (%) (Auto) 1.8 0.0-7.0 % Basophils (%) (Auto) 1.3 0.0-2.0 % Neutrophils # (Auto) 7.2 1.6-8.6 10 ^3/uL Lymphocytes # (Auto) 1.4 0.4-5.4 10 ^3/uL Monocytes # (Auto) 0.6 0-1.3 10 ^3/uL Eosinophils # (Auto) 0.2 0-0.8 10 ^3/uL Basophils # (Auto) 0.1 0-0.2 10 ^3/uL Nucleated Red Blood Cells 0.0 % Sodium Level 136 136-145 mmol/L Potassium Level 4.5 3.5-5.1 mmol/L Chloride Level 100 98-107 mmol/L Carbon Dioxide Level 24 20-31 mmol/L Anion Gap 12 5-15 Blood Urea Nitrogen 31 H 9-23 mg/dL Creatinine 1.78 H 0.550-1.02 mg/dL Glomerular Filtration Rate Calc 28 >90 mL/min BUN/Creatinine Ratio 17.4 10.0-20.0 Serum Glucose 156 H 74-106 mg/dL Calcium Level 9.3 8.7-10.4 mg/dL Magnesium Level 2.2 1.6-2.6 mg/dL Total Bilirubin 0.3 0.2-1.0 mg/dL Aspartate Amino Transferase (AST) 22 13-40 U/L Alanine Aminotransferase (ALT) 13 7-40 U/L Alkaline Phosphatase 56 46-116 U/L B-Type Natriuretic Peptide 174.07 0-100 pg/mL Total Protein 7.7 5.7-8.2 g/dL Albumin 4.6 3.2-4.8 g/dL SEPSIS Sepsis Screen Date sepsis recognized/suspect: Jan 22, 2025 Time Sepsis recognized/suspect: 1945 Recent Procedure: No On Antibiotic Therapy: No Respiratory Rate >20: No Heart Rate >90: No Temp<36 C (96.8 F) or >38.3 C: No SBP <90 or MAP <65 mmHG: No New Acute Mental Status Change: No Is the patient on CPAP, BIPAP,: No Physician Orders Electrocardigram (01/22/25 15:03) Electrocardigram (01/22/25 16:03) Electrocardigram (01/22/25 18:03) Chest Xray 1 View (01/22/25 15:20) * Cardiology Consult (01/22/25 17:34) Admit (01/22/25 19:58) Nitroglycerin Sublingual (Ntrostat Subli (01/22/25 20:00) Morphine Sulfate Injection (01/22/25 20:00) Stat Ekg For Chest Pain (01/22/25 19:58) Notify Md Of Changes From Base (01/22/25 19:58) Stock House Worker For 24 Hours (01/22/25 19:58) Emergency Dysrhythmia Protocol (01/22/25 19:58) Rhythm Strips Once Every Shift (01/22/25 19:58) Oxygen By Nasal Cannula (01/22/25 19:58) Aspirin Tablet (01/23/25 10:00) Atorvastatin (Lipitor) (01/22/25 22:00) Furosemide Tablet (Lasix Tablet) (01/23/25 10:00) Benazepril Hcl Tablet (Lotensin Tablet) (01/23/25 10:00) PTPTT (01/22/25 20:04) Basic Metabolic Panel (01/23/25 04:00) Glucose Blood (Accu-Chek Comfort Curve T (01/23/25 00:00) Insulin R (Human) (Insulin R) (01/23/25 00:00) Dextrose 50% Syringe (01/22/25 20:15) Ondansetron Hcl (Zofran) (01/22/25 20:15) Complete Blood Count (01/23/25 04:00) Cardiac Diet-2gna,Lofat,Lochol (01/23/25 Breakfast) Echo 2d Mode Cardiac Dop (01/22/25 20:04) Condition: Fair (01/22/25 20:04) Bedrest With Bathroom Privileg (01/22/25 20:04) Clopidogrel Bisulfate (Plavix) (01/23/25 10:00) Clonidine Hcl Tablet (Catapres Tablet) (01/22/25 21:45) Thyroid Stimulating Hormone (01/22/25 21:36) Lipid Panel (01/22/25 21:36) Vital Signs Date Time Temp Pulse Resp B/P (MAP) Pulse Ox O2 Delivery O2 Flow Rate FiO2 01/22/25 20:22 98.7 70 18 159/69 (99) 98 98.7 01/22/25 20:00 89 01/22/25 19:43 75 17 96 Room Air* 0 21 21 01/22/25 19:07 74 01/22/25 18:49 75 19 177/81 (113) 97 01/22/25 15:54 79 01/22/25 14:52 77 01/22/25 14:47 98.2 96 18 120/75 97 98.2 Laboratory Tests Test 01/22/25 15:27 White Blood Count 9.6 10^3/uL (4.4-10.8) # Medications Medications Dose Ordered Sig/Letty Route Start Time Stop Time Status Last Admin Dose Admin Enoxaparin Sodium 70 mg ONCE ONCE SC 01/22/25 20:15 01/22/25 20:52 DC 01/22/25 20:56 70 MG Assessment/Plan Assessment/Plan Assessment NSTEMI Acute kidney injury Diabetes mellitus Hypertension Plan Admit the patient to telemetry to the hospitalist Cardiology consultation ACS protocol Resume home medications Continue treatment per orders. Plan discussed with: Patient My Orders Orders - INDIA GUTHRIE Procedure Category Date Status Time Admit ADMIT 01/22/25 Transmitted 19:58 Nitroglycerin PHA 01/22/25 In Process Sublingual (Ntrostat 20:00 Morphine Sulfate PHA 01/22/25 In Process Injection 20:00 Stat Ekg For Chest [facility] 01/22/25 In Process Pain 19:58 Notify Of Changes [facility] 01/22/25 In Process From Base 19:58 Stock House Worker For COURTNEY 01/22/25 In Process 24 Hours 19:58 Emergency Dysrhythmia [facility] 01/22/25 In Process Protocol 19:58 Rhythm Strips Once [facility] 01/22/25 In Process Every Shift 19:58 Oxygen By Nasal RT 01/22/25 Transmitted Cannula 19:58 Aspirin Tablet PHA 01/23/25 In Process 10:00 Atorvastatin (Lipitor) PHA 01/22/25 In Process 22:00 Furosemide Tablet PHA 01/23/25 In Process (Lasix Tablet) 10:00 Benazepril Hcl Tablet PHA 01/23/25 In Process (Lotensin Tablet) 10:00 PTPTT LAB 01/22/25 In Process 20:04 Basic Metabolic Panel LAB 01/23/25 Verified 04:00 Glucose Blood PHA 01/23/25 In Process (Accu-Chek Comfort 00:00 Insulin R (Human) PHA 01/23/25 In Process (Insulin R) 00:00 Dextrose 50% Syringe PHA 01/22/25 In Process 20:15 Ondansetron Hcl PHA 01/22/25 In Process (Zofran) 20:15 Complete Blood Count LAB 01/23/25 Verified 04:00 Cardiac DIET 01/23/25 Transmitted Diet-2gna,Lofat,Lochol Breakfast Echo 2d Mode Cardiac US 01/22/25 Logged DOP 20:04 Condition: Fair [facility] 01/22/25 In Process 20:04 Bedrest With Bathroom [facility] 01/22/25 In Process Privileg 20:04 Clopidogrel Bisulfate PHA 01/23/25 In Process (Plavix) 10:00 Clonidine Hcl Tablet PHA 01/22/25 Transmitted (Catapres Tablet) 21:45 Thyroid Stimulating LAB 01/22/25 Transmitted Hormone 21:36 Lipid Panel LAB 01/22/25 Transmitted 21:36 Date of Service: Jan 22, 2025 Billing Provider: INDIA GUTHRIE Common Visit Codes: [id number] INP/OBS CARE (HIGH) INDIA GUTHRIE Jan 22, 2025 21:42
[2025-01-22] MEDS: ATORVASTATIN 20 MG TAB PO SCH (21:47)
[2025-01-22 22:00] LABS: Triglycerides 248 mg/dL (< 150)
[2025-01-22 22:28] LABS: Cholesterol 230 mg/dL (< 200); HDL Cholesterol 35 mg/dL (40-59)
[2025-01-23] VITALS (13 sets, daily range): BP systolic 97–146; BP diastolic 54–72; PULSE 77–102; RESP 12–18; TEMP 97.9–98.6; O2SAT 90–100
[2025-01-23] MEDS: NITROGLYCERIN 0.4 MG SL TAB SL PRN (00:33)
[2025-01-23] MEDS: ACCU-CHEK COMFORT CURVE STRIP VI SCH (00:35)
[2025-01-23] MEDS: InsuLIN REG 1unit/0.01ml Soln (100units/ml) SC SCH (00:39)
[2025-01-23] MEDS: TEMAZEPAM 15 MG CAP PO ONE (00:43)
[2025-01-23 06:34] LABS: Hemoglobin 9.9 g/dL (12.2-16.2)
[2025-01-23 06:39] LABS: Hematocrit 29.1 % (36.0-46.0); Mean Corpuscular Hemoglobin 32.5 pg (28.0-32.0); Mean Corpuscular Volume 95.8 fL (80.0-100.0); Nucleated Red Blood Cells % 0.1 %
[2025-01-23 06:45] LABS: Chloride 103 mmol/L (98-107); Potassium 4.3 mmol/L (3.5-5.1); Sodium 138 mmol/L (136-145)
[2025-01-23 06:46] LABS: Anion Gap 11 (5-15); Calcium 9.5 mg/dL (8.7-10.4); Carbon Dioxide 24 mmol/L (20-31)
[2025-01-23 06:51] LABS: BUN/Creatinine Ratio 17.0 (10.0-20.0); Blood Urea Nitrogen 27 mg/dL (9-23); Glucose 147 mg/dL (74-106)
--- NOTE | 2025-01-23 09:15 | DVHPN2 ---
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 WITH HX OF DIABETES VASCULOPATHY NEUROPATHY vital signs Vital Sign Date Time Temp Pulse Resp B/P (MAP) Pulse Ox O2 Delivery O2 Flow Rate FiO2 01/23/25 07:25 98.3 80 13 159/78 (105) 97 98.3 01/22/25 19:43 Room Air* 0 21 21 medications Current Medications Medications Dose Ordered Sig/Letty Route Start Time Stop Time Status Last Admin Dose Admin Nitroglycerin 0.4 mg Q5MINP PRN SL 01/22/25 20:00 01/23/25 00:33 0.4 MG Morphine Sulfate 2 mg Q30M PRN IV 01/22/25 20:00 Aspirin 162 mg DAILY PO 01/23/25 10:00 Atorvastatin Calcium 20 mg HS PO 01/22/25 22:00 Furosemide 20 mg DAILY PO 01/23/25 10:00 Benazepril HCl 40 mg DAILY PO 01/23/25 10:00 Diagnostic Test (Pha) 1 strip Q6HR 01/23/25 00:00 01/23/25 05:33 1 STRIP Insulin Human Regular Q6HR SC 01/23/25 00:00 01/23/25 00:39 3 UNITS Dextrose 50 ml UD PRN IV 01/22/25 20:15 Ondansetron HCl 4 mg Q4HP PRN IV 01/22/25 20:15 Clopidogrel Bisulfate 75 mg DAILY PO 01/23/25 10:00 Clonidine HCl 0.1 mg Q6HP PRN PO 01/22/25 21:45 01/22/25 21:53 0.1 MG laboratory and microbiology Laboratory Tests 01/23/25 05:32 Test 01/23/25 05:32 Range/Units Serum Glucose 147 H 74-106 mg/dL Problem List CHEST PAIN TROPONIN NEGATIVE HX OF PAD S/P FIELD CONTROL INSPECTOR NOW WITH HX OF DIABETES VASCULOPATHY NEUROPATHY Assessment/Plan [facility]SIDER [facility] Plan discussed with: Patient Critical Care Time(min): 35 DONALD BOWLING MD Jan 23, 2025 09:15
[2025-01-23] MEDS: BENAZEPRIL HCL 10 MG TAB PO SCH (09:46)
[2025-01-23] MEDS: CLOPIDOGREL BISULFATE 75 MG TAB PO SCH (09:47)
[2025-01-23] MEDS: FUROSEMIDE 20 MG TAB PO SCH (09:48)
[2025-01-23] MEDS: MIDAZOLAM HCL 2MG/2ML 2ml VIAL (1mg/ml) ONE ×2 (10:20→10:46)
[2025-01-23] MEDS: fentaNYL CITRATE 100 MCG/2 ML VL ONE ×2 (10:20→10:45)
[2025-01-23] MEDS: LIDOCAINE 2%HCL (LOCAL ANESTH.) INJ 20ML MDV ONE ×2 (10:21→10:47)
--- NOTE | 2025-01-23 10:29 | ECG ---
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
--- NOTE | 2025-01-23 10:30 | ECG ---
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
[2025-01-23] MEDS: ANGIOMAX 250 MG VIAL IV ONE ×2 (10:45→12:38)
[2025-01-23] MEDS: HEPARIN SODIUM (PORCINE) 5000 UNITS/ML 1ML VIAL ONE (10:45)
[2025-01-23] MEDS: SODIUM CHL 0.9% 0 ML ONE (10:46)
[2025-01-23] MEDS: LORazepam 2MG/ML-1ML VIAL IV ONE (11:29)
--- NOTE | 2025-01-23 12:00 | DVHPN2 ---
Progress Note Date Seen: Jan 23, 2025 Medical Necessity Reason Pt with a Central, PICC or Fol: No Subjective Patient reports: No new complaints Review of Systems: HEENT:Normal, CVS:Normal, RESPIRATORY:Normal, GI:Normal, :Normal, MSK:Normal, NEURO:Normal Objective vital signs Vital Sign Date Time Temp Pulse Resp B/P (MAP) Pulse Ox O2 Delivery O2 Flow Rate FiO2 01/23/25 09:48 138/64 01/23/25 08:00 77 01/23/25 07:25 13 97 Room Air* 0 21 01/23/25 07:25 98.3 98.3 medications Current Medications Medications Dose Ordered Sig/Letty Route Start Time Stop Time Status Last Admin Dose Admin Nitroglycerin 0.4 mg Q5MINP PRN SL 01/22/25 20:00 01/23/25 00:33 0.4 MG Morphine Sulfate 2 mg Q30M PRN IV 01/22/25 20:00 Aspirin 162 mg DAILY PO 01/23/25 10:00 01/23/25 09:45 162 MG Atorvastatin Calcium 20 mg HS PO 01/22/25 22:00 Furosemide 20 mg DAILY PO 01/23/25 10:00 01/23/25 09:48 20 MG Benazepril HCl 40 mg DAILY PO 01/23/25 10:00 01/23/25 09:46 40 MG Diagnostic Test (Pha) 1 strip Q6HR 01/23/25 00:00 01/23/25 05:33 1 STRIP Insulin Human Regular Q6HR SC 01/23/25 00:00 01/23/25 00:39 3 UNITS Dextrose 50 ml UD PRN IV 01/22/25 20:15 Ondansetron HCl 4 mg Q4HP PRN IV 01/22/25 20:15 Clopidogrel Bisulfate 75 mg DAILY PO 01/23/25 10:00 01/23/25 09:47 75 MG Clonidine HCl 0.1 mg Q6HP PRN PO 01/22/25 21:45 01/22/25 21:53 0.1 MG Examination: GENERAL:Normal, HEENT:Normal, NECK:Normal, LUNGS:Normal, CVS:Normal, ABDOMEN:Normal, MSK:Normal, SKIN:Normal, NEURO:Normal, :Normal laboratory and microbiology Laboratory Tests 01/23/25 05:32 Test 01/23/25 05:32 Range/Units Serum Glucose 147 H 74-106 mg/dL Problem List/Assessment/Plan Problem List/Assessment/Plan #1 acute mi: angio today #2 hyperkalemia: ruthy bledsoe benazepril, dyazide #3 ckd stage 3 #4 dm: ssi #5 htn #6 bilateral ankle pain s/p fall #7 cad s/p stents #8 pad #9 anemia #10 hyperlipidemia advance care planning- full code- time spent 19 mins Plan discussed with: Other (rn) Date of Service: Jan 23, 2025 Billing Provider: INDIA RONDON MD Common Visit Codes: [id number] INP/OBS CARE(HIGH) Secondary Visit Codes: [id number] CARE PLAN 30 MINUTES INDIA RONDON MD Jan 23, 2025 12:00
[2025-01-23] MEDS: hydrALAZINE HCL 20 MG/ML VL ONE (12:05)
[2025-01-23] MEDS: NITROGLYCERIN 0.4MG/DOSE SPRAY 4.9GM ONE (12:19)
[2025-01-23] MEDS: HYDROmorphone HCL 2 MG/ML VL/or syr ONE (12:21)
[2025-01-23] MEDS: IODIXANOL 320MG/ML 100ML BTL IV ONE (12:31)
[2025-01-23] MEDS: SODIUM CHL 0.9% 50 ML ONE (12:38)
[2025-01-23] MEDS: CLOPIDOGREL BISULFATE 75 MG TAB ONE (13:12)
--- NOTE | 2025-01-23 13:38 | DVHOP ---
DATE OF SURGERY: 01/23/2025 PROCEDURES PERFORMED: * Selective left and right coronary angiography. * Ventriculogram. * Right iliac angiography. * Angioplasty with stent placement of the mid left anterior descending artery with Shockwave thrombectomy. * Angioplasty with stent placement of the proximal to ostial LAD with Shockwave thrombectomy of the proximal LAD. * Angioplasty with stent placement of the mid circumflex with Shockwave thrombectomy with stent placement. * Conscious sedation. * FFR of LAD, FFR of circumflex arteries. DESCRIPTION OF PROCEDURE: The patient was prepped and draped under sterile conditions. 1% Xylocaine was used to anesthetize the right groin. Using a Cook needle, the right femoral artery was engaged with Seldinger technique, a 6[place] sheath in the right femoral artery. Using a 6[place] JL4 catheter and a 6[place] JR4 catheter, selective left and right coronary angiography was performed. Using 6[place] pigtail catheter, ventriculogram was done. Then, the 6[place] diagnostic system was exchanged for a 6[place] interventional system. Using a 6[place] XB 3.5 guide catheter, the left main was cannulated. Using a run-through wire, the circumflex lesion was then crossed. It was then thrombectomized using a Shockwave balloon. A 2.5 x 13 mm balloon was used. Following that, FFR was performed prior to the intervention. FFR calculated to be 0.62. Then, a 3.0 x 15 mm Cosme Alger stent was deployed across the lesion at 18 atmospheres. There were no complications. The patient tolerated the procedure well. Then, a Choice PT extra support wire was then introduced into the left anterior descending artery. FFR was performed of both the mid LAD and the proximal/ostial LAD. The mid LAD measured 0.67, the proximal LAD 7.20. There was previous site of stent placement in the left anterior descending artery. It was in-stent restenosed extension more proximally. Following that, a thrombectomy was performed of the mid LAD with a 2.5 x 13 mm Shockwave thrombectomy catheter and similar catheter was used for thrombectomizing the proximal/ostial LAD. Following that, two stents were placed. In the mid LAD, a 3.0 x 15 mm Cosme Alger stent. In the proximal to ostial LAD, a 3.0 x 26 mm [place] Alger stent was deployed at 18 atmospheres. There were no complications. The patient tolerated the procedure well. RESULTS: * Left main was patent. Left anterior descending artery had an in-stent restenosis greater than 70% and a mid LAD of 95%. Status post stent placement in the mid LAD 3.0 x 15 and a 3.0 x 26 in the proximal/ostial LAD with less than 10% residual stenosis. * Mid circumflex had a 95% mid stenosis status post angioplasty with stent placement and thrombectomy with a 3.0 x 15 mm Cosme Alger stent with less than 10% residual stenosis. * Right coronary artery previous site of ostial stent placement was patent. * Mid RCA, however, had an 80% narrowing that will require further intervention at a later date. * Ventriculogram shows an ejection fraction of 55% with an LVEDP of 16 mmHg. Pranav Méndez MD SA/SAMANTHA/DELFIN TID: [id number] RECEIPT: [id number]
[2025-01-23] MEDS: ATORVASTATIN 20 MG TAB PO SCH (21:09)
[2025-01-24 00:53] VITALS: BP 136/53; PULSE 89; RESP 18; TEMP 98.1; O2SAT 99
[2025-01-24 04:56] VITALS: BP 129/63; PULSE 76; RESP 18; TEMP 98; O2SAT 98
[2025-01-24] MEDS: PANTOPRAZOLE 40 MG TAB PO SCH (05:20)
[2025-01-24 07:11] LABS: Chloride 103 mmol/L (98-107); Potassium 4.7 mmol/L (3.5-5.1); Sodium 138 mmol/L (136-145)
[2025-01-24 07:13] LABS: Anion Gap 11 (5-15); Calcium 9.7 mg/dL (8.7-10.4); Carbon Dioxide 24 mmol/L (20-31)
[2025-01-24 07:16] LABS: Hematocrit 28.3 % (36.0-46.0); Hemoglobin 9.9 g/dL (12.2-16.2); Mean Corpuscular Hemoglobin 33.2 pg (28.0-32.0); Mean Corpuscular Volume 94.6 fL (80.0-100.0); Nucleated Red Blood Cells % 0.1 %
[2025-01-24 07:18] LABS: BUN/Creatinine Ratio 15.1 (10.0-20.0); Blood Urea Nitrogen 23 mg/dL (9-23)
[2025-01-24 07:22] LABS: Glucose 162 mg/dL (74-106)
[2025-01-24 08:00] VITALS: PULSE 102; PULSE 88; RESP 17; O2SAT 93
[2025-01-24 09:00] VITALS: BP 110/65; PULSE 88; RESP 17; TEMP 98.2; O2SAT 93
[2025-01-24] MEDS: BENAZEPRIL HCL 10 MG TAB PO SCH (09:08)
[2025-01-24] MEDS: EZETIMIBE 10 MG TAB PO SCH (09:09)
--- NOTE | 2025-01-24 12:02 | DVHDS2 ---
Discharge Summary Date of Admission Jan 22, 2025 at 19:58 Date of Discharge: Jan 24, 2025 Labs/Diagnostic Data: Laboratory Results Test 01/24/25 06:33 01/24/25 05:25 01/22/25 20:58 01/22/25 18:24 White Blood Count 8.8 10^3/uL (4.4-10.8) Red Blood Count 3.00 10^6/uL (4.0-5.20) Hemoglobin 9.9 g/dL (12.2-16.2) Hematocrit 28.3 % (36.0-46.0) Mean Corpuscular Volume 94.6 fL (80.0-100.0) Mean Corpuscular Hemoglobin 33.2 pg (28.0-32.0) Mean Corpuscular Hemoglobin Concent 35.1 g/dL (32.0-36.0) Red Cell Distribution Width 14.1 % (11.8-14.3) Platelet Count 531 10^3/uL (140-450) Mean Platelet Volume 9.0 fL (6.9-10.8) Neutrophils (%) (Auto) 66.7 % (37.0-80.0) Lymphocytes (%) (Auto) 21.2 % (10.0-50.0) Monocytes (%) (Auto) 9.5 % (0.0-12.0) Eosinophils (%) (Auto) 1.4 % (0.0-7.0) Basophils (%) (Auto) 1.2 % (0.0-2.0) Neutrophils # (Auto) 5.9 10 ^3/uL (1.6-8.6) Lymphocytes # (Auto) 1.9 10 ^3/uL (0.4-5.4) Monocytes # (Auto) 0.8 10 ^3/uL (0-1.3) Eosinophils # (Auto) 0.1 10 ^3/uL (0-0.8) Basophils # (Auto) 0.1 10 ^3/uL (0-0.2) Nucleated Red Blood Cells 0.1 % Sodium Level 138 mmol/L (136-145) Potassium Level 4.7 mmol/L (3.5-5.1) Chloride Level 103 mmol/L (98-107) Carbon Dioxide Level 24 mmol/L (20-31) Anion Gap 11 (5-15) Blood Urea Nitrogen 23 mg/dL (9-23) Creatinine 1.52 mg/dL (0.550-1.02) Glomerular Filtration Rate Calc 34 mL/min (>90) BUN/Creatinine Ratio 15.1 (10.0-20.0) Serum Glucose 162 mg/dL (74-106) Calcium Level 9.7 mg/dL (8.7-10.4) POC Glucose 150 mg/dl (70-106) Prothrombin Time 10.4 sec (9.3-11.8) Prothrombin Time INR 0.98 (0.9-1.15) Activated Partial Thromboplast Time 25.6 SEC (24.5-34.5) Troponin I High Sensitivity 1896 ng/L (</=34) Triglycerides Level 248 mg/dL (< 150) Cholesterol Level 230 mg/dL (< 200) LDL Cholesterol 165 mg/dL (< 100) HDL Cholesterol 35 mg/dL (40-59) Test 01/22/25 16:15 01/22/25 15:27 Thyroid Stimulating Hormone (TSH) 1.20 uIU/mL (0.55-4.78) Magnesium Level 2.2 mg/dL (1.6-2.6) Total Bilirubin 0.3 mg/dL (0.2-1.0) Aspartate Amino Transferase (AST) 22 U/L (13-40) Alanine Aminotransferase (ALT) 13 U/L (7-40) Alkaline Phosphatase 56 U/L (46-116) B-Type Natriuretic Peptide 174.07 pg/mL (0-100) Total Protein 7.7 g/dL (5.7-8.2) Albumin 4.6 g/dL (3.2-4.8) Other Laboratory Tests 01/24/25 06:33 Brief Hx & Hospital Course: see dictated note Condition at Discharge: Fair Final Diagnosis/Problems List cad Discharge Disposition: Home Discharge Instruct/Medications Diet: Cardiac 2g Na,low cholest Activity: No Restrictions, As Tolerated Follow Up/Referral: [place] [place] in 1 wk Medications: resume home meds including asa/plavix change benazepril dose to 20 mg daily Scheduled Benazepril Hcl (Benazepril Hcl), 1 TAB PO DAILY, (Reported) Cephalexin (Keflex Capsule), 2 CAP PO BID Cholecalciferol (Vitamin D3), 1 CAP PO DAILY, (Reported) Clonidine Hydrochloride (Clonidine Hcl), 0.1 MG PO BID, (Reported) Clopidogrel Bisulfate (Plavix), 1 TAB PO DAILY, (Reported) Cyanocobalamin (Vitamin B12), 1,000 MCG PO DAILY, (Reported) Docusate Sodium (Docusate Sodium), 100 MG PO BID Ezetimibe (Ezetimibe), 0.5 TAB PO DAILY, (Reported) Lactulose (Lactulose), 10 GM PO DAILY Magnesium Oxide (Magnesium Oxide), 1 TAB PO DAILY, (Reported) Metformin Hydrochloride (Metformin Hcl), 1 TAB PO QAM, (Reported) Metformin Hydrochloride (Metformin Hcl), 1 TAB PO QPM, (Reported) Omeprazole (Omeprazole Dr), 1 CAP PO DAILY, (Reported) Propranolol HCl (Propranolol Hydrochloride), 5 MG PO QPM, (Reported) Sitagliptin Phosphate (Januvia), 1 TAB PO QPM, (Reported) Sodium Zirconium Cyclosilicate (Lokelma), 10 GM PO DAILY Scheduled PRN Lorazepam (Ativan), 1 TAB PO HS PRN for INSOMNIA, (Reported) Tramadol Hcl (Tramadol Hcl), 100 MG PO BID PRN, (Reported) Discontinued Medications Baclofen (Baclofen), 20 MG PO HS PRN for FOR MUSCLE SPASM, (Reported) Furosemide (Furosemide), 1 TAB PO DAILY PRN for PERIPHERAL EDEMA, (Reported) Gabapentin (Gabapentin), 1 CAP PO TID PRN for NEUROPATHY, (Reported) Hydrochlorothiazide W/Triamter (Triamterene/Hydrochloroth), 1 CAP PO DAILY, (Reported) Potassium Chloride (Potassium Chloride ER), 1 TAB PO DAILYPRN, (Reported) Simvastatin (Simvastatin), 1 TAB PO QPM, (Reported) Discharge Statement: "Patient was advised to return to the ER or call 911 if any headaches, dizziness, shortness of breath, chest pain, abdominal pain, bleeding, fevers, or worsening of medical condition. Patient was counseled about treatment plan, medications, possible side effects, patientverbalized understanding. All questions were answered to the best of my ability. This discharge took greater then 30 minutes in planning, reviewing documentation, counseling the patient, and discussing with other team members." ASSESSMENT ASSESSMENT Assessment cad Date of Service: Jan 24, 2025 Billing Provider: INDIA RONDON MD Common Visit Codes: 47071-BLH/OBS DISCH DAY >30min INDIA RONDON MD Jan 24, 2025 12:02
--- NOTE | 2025-01-24 12:25 | DVHDS ---
DATE OF DISCHARGE: 01/24/2025 DATE OF ADMISSION: 01/22/2025 DATE OF DISCHARGE: 01/24/2025 HISTORY OF PRESENT ILLNESS: The patient is an 79-year-old lady who is admitted with complaints of chest pain and a history of diabetes, hypertension, coronary artery disease, and hyperlipidemia. HOSPITAL COURSE: The patient had elevated troponin levels. The patient's lipid panel was also elevated with an LDL of 165. The patient underwent coronary angiography by Dr. Rock with stenting of the mid circumflex, and LAD. The patient had an 80% stenosis of the mid RCA. The patient now is chest pain free and has been cleared for discharge by Dr. Rock. The patient will be discharged to resume her home medications including aspirin and Plavix. No statins have been prescribed as the patient says that she gets side effects from the statins. The patient is taking Zetia. Also, her benazepril will be reduced from 40 to 20 mg daily in view of recent hyperkalemia. FINAL DIAGNOSES: * Acute myocardial infarction status post coronary angiography with stenting. * Hyperkalemia that has resolved. * CKD stage 3. * Diabetes mellitus. * Hypertension. * History of coronary artery disease with previous stents. * Peripheral vascular disease. * Anemia. * Hyperlipidemia. Time spent in discharge planning and review of plan with the patient and nursing was 38 minutes. MD KEENAN Fernando/ELI TID: [id number] RECEIPT: [id number]
--- NOTE | 2025-01-24 12:58 | DVHPN2 ---
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 VASCULOPATHY NEUROPATHY vital signs Vital Sign Date Time Temp Pulse Resp B/P (MAP) Pulse Ox O2 Delivery O2 Flow Rate FiO2 01/24/25 09:09 110/65 01/24/25 09:00 98.2 88 17 93 98.2 01/24/25 08:00 Room Air* 0 21 Total Intake and Output 01/23/25 01/23/25 01/24/25 15:00 23:00 07:00 Intake Total 100 ml 50 ml 500 ml Balance 100 ml 50 ml 500 ml medications Current Medications Medications Dose Ordered Sig/Letty Route Start Time Stop Time Status Last Admin Dose Admin Nitroglycerin 0.4 mg Q5MINP PRN SL 01/22/25 20:00 01/23/25 00:33 0.4 MG Morphine Sulfate 2 mg Q30M PRN IV 01/22/25 20:00 Aspirin 162 mg DAILY PO 01/23/25 10:00 01/24/25 09:08 162 MG Furosemide 20 mg DAILY PO 01/23/25 10:00 01/23/25 09:48 20 MG Diagnostic Test (Pha) 1 strip Q6HR 01/23/25 00:00 01/24/25 05:13 1 STRIP Insulin Human Regular Q6HR SC 01/23/25 00:00 01/23/25 00:39 3 UNITS Dextrose 50 ml UD PRN IV 01/22/25 20:15 Ondansetron HCl 4 mg Q4HP PRN IV 01/22/25 20:15 Clopidogrel Bisulfate 75 mg DAILY PO 01/23/25 10:00 01/24/25 09:09 75 MG Clonidine HCl 0.1 mg Q6HP PRN PO 01/22/25 21:45 01/22/25 21:53 0.1 MG Atorvastatin Calcium 40 mg HS PO 01/23/25 22:00 01/23/25 21:09 40 MG Benazepril HCl 20 mg DAILY PO 01/24/25 10:00 01/24/25 09:08 20 MG Tramadol HCl 50 mg Q6HP PRN PO 01/23/25 12:00 01/23/25 21:10 50 MG EZETIMIBE 10 mg DAILY PO 01/24/25 10:00 01/24/25 09:09 10 MG Pantoprazole Sodium 40 mg DAILY@0600 PO 01/24/25 06:00 01/24/25 05:20 40 MG laboratory and microbiology Laboratory Tests 01/24/25 06:33 Test 01/24/25 06:33 Range/Units Serum Glucose 162 H 74-106 mg/dL Problem List CHEST PAIN TROPONIN NEGATIVE 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
[2025-01-24 13:00] VITALS: BP 116/52; PULSE 83; RESP 16; TEMP 97.8; O2SAT 98
--- NOTE | 2025-01-24 13:00 | DVHPN2 ---
Progress Note - Dictate Date Seen: Jan 24, 2025 Medical Necessity Reason Pt with a Central, PICC or Fol: No Subjective PT WITH CHEST PAIN TROPONIN NEGATIVE HX OF PAD S/P [employer] LEAD NOW WITH HX OF DIABETES VASCULOPATHY NEUROPATHY vital signs Vital Sign Date Time Temp Pulse Resp B/P (MAP) Pulse Ox O2 Delivery O2 Flow Rate FiO2 01/24/25 09:09 110/65 01/24/25 09:00 98.2 88 17 93 98.2 01/24/25 08:00 Room Air* 0 21 Total Intake and Output 01/23/25 01/23/25 01/24/25 15:00 23:00 07:00 Intake Total 100 ml 50 ml 500 ml Balance 100 ml 50 ml 500 ml medications Current Medications Medications Dose Ordered Sig/Letty Route Start Time Stop Time Status Last Admin Dose Admin Nitroglycerin 0.4 mg Q5MINP PRN SL 01/22/25 20:00 01/23/25 00:33 0.4 MG Morphine Sulfate 2 mg Q30M PRN IV 01/22/25 20:00 Aspirin 162 mg DAILY PO 01/23/25 10:00 01/24/25 09:08 162 MG Furosemide 20 mg DAILY PO 01/23/25 10:00 01/23/25 09:48 20 MG Diagnostic Test (Pha) 1 strip Q6HR 01/23/25 00:00 01/24/25 05:13 1 STRIP Insulin Human Regular Q6HR SC 01/23/25 00:00 01/23/25 00:39 3 UNITS Dextrose 50 ml UD PRN IV 01/22/25 20:15 Ondansetron HCl 4 mg Q4HP PRN IV 01/22/25 20:15 Clopidogrel Bisulfate 75 mg DAILY PO 01/23/25 10:00 01/24/25 09:09 75 MG Clonidine HCl 0.1 mg Q6HP PRN PO 01/22/25 21:45 01/22/25 21:53 0.1 MG Atorvastatin Calcium 40 mg HS PO 01/23/25 22:00 01/23/25 21:09 40 MG Benazepril HCl 20 mg DAILY PO 01/24/25 10:00 01/24/25 09:08 20 MG Tramadol HCl 50 mg Q6HP PRN PO 01/23/25 12:00 01/23/25 21:10 50 MG EZETIMIBE 10 mg DAILY PO 01/24/25 10:00 01/24/25 09:09 10 MG Pantoprazole Sodium 40 mg DAILY@0600 PO 01/24/25 06:00 01/24/25 05:20 40 MG laboratory and microbiology Laboratory Tests 01/24/25 06:33 Test 01/24/25 06:33 Range/Units Serum Glucose 162 H 74-106 mg/dL Problem List CHEST PAIN TROPONIN NEGATIVE HX OF PAD S/P [employer] NOW WITH HX OF DIABETES VASCULOPATHY NEUROPATHY Assessment/Plan S/P LHC S/P PTCA STENT LAD S/P PTCA STENT CX NEEDS REVASCULARIZATION OF RCA DC HOME FOLLOWUP IN 1 WEEK Plan discussed with: Patient DONALD BOWLING MD Jan 24, 2025 13:00
== END 2025-01-24 13:26 | disposition home or self-care (01) | DRG 228 ==
LOC: EDUNIT# 14:47 → EDBD 14:47 → ER 14:47 → OVERFLOW 19:58 → TELE-WESTW 01-23 15:08
PROVIDERS: ADMIT Internal Medicine; ATTEND Internal Medicine
PROC: 027136Z Dilation of Coronary Artery, Two Arteries with Three Drug-eluting Intraluminal Devices, Percutaneous Approach (ICD-10-PCS; principal; 2025-01-23)
PROC: 02C10ZZ Extirpation of Matter from Coronary Artery, Two Arteries, Open Approach (ICD-10-PCS; 2025-01-23)
PROC: 4A033BC Measurement of Arterial Pressure, Coronary, Percutaneous Approach (ICD-10-PCS; 2025-01-23)
PROC: 4A023N7 Measurement of Cardiac Sampling and Pressure, Left Heart, Percutaneous Approach (ICD-10-PCS; 2025-01-23)
PROC: B2111ZZ Fluoroscopy of Multiple Coronary Arteries using Low Osmolar Contrast (ICD-10-PCS; 2025-01-23)
PROC: B2151ZZ Fluoroscopy of Left Heart using Low Osmolar Contrast (ICD-10-PCS; 2025-01-23)
DX: T82.855A Stenosis of coronary artery stent, initial encounter (principal); I21.9 Acute myocardial infarction, unspecified; N17.9 Acute kidney failure, unspecified; N18.30 Chronic kidney disease, stage 3 unspecified; I25.10 Atherosclerotic heart disease of native coronary artery without angina pectoris; D64.9 Anemia, unspecified; E87.5 Hyperkalemia; K21.9 Gastro-esophageal reflux disease without esophagitis; E78.5 Hyperlipidemia, unspecified; E11.22 Type 2 diabetes mellitus with diabetic chronic kidney disease; I12.9 Hypertensive chronic kidney disease with stage 1 through stage 4 chronic kidney disease, or unspecified chronic kidney disease; E11.51 Type 2 diabetes mellitus with diabetic peripheral angiopathy without gangrene; Y83.1 Surgical operation with implant of artificial internal device as the cause of abnormal reaction of the patient, or of later complication, without mention of misadventure at the time of the procedure; Z88.0 Allergy status to penicillin; Z88.2 Allergy status to sulfonamides; Z90.710 Acquired absence of both cervix and uterus; Z82.49 Family history of ischemic heart disease and other diseases of the circulatory system
CPT/HCPCS: 36415; 71045; 80048; 80053; 80061; 82962; 83735; 83880; 84443; 84484; 85025; 85610; 85730; 87081; 92941; 92973; 93005; 93306; 93458; 93571; 96372; 99152; G0378; J1815; J2250; Q9967

== ENCOUNTER 2025-02-07 08:44 | Outpatient (CLI) | payer MEDICARE, BC ==
[~2025-02-07 08:44] MED LIST changes: -BACL10TA PO; -FURO20TA3 PO; -GABA-1250 PO; -POTA-180 PO; -SIMV20TA20 PO
== END 2025-02-07 17:00 | disposition home or self-care (01) ==
LOC: Rad HDHVI 08:44
PROVIDERS: ATTEND Internal Medicine Cardiovascular Disease
DX: I34.81 Nonrheumatic mitral (valve) annulus calcification (principal); I11.0 Hypertensive heart disease with heart failure; I50.33 Acute on chronic diastolic (congestive) heart failure
CPT/HCPCS: 93306

== ENCOUNTER 2025-03-26 11:51 | Outpatient (CLI) | payer MEDICARE, BC ==
[2025-03-26 11:46] VITALS: BP 153/60; PULSE 83; RESP 16; O2SAT 98
[2025-03-26 13:00] VITALS: BP 158/62; PULSE 84; RESP 16; O2SAT 98
[2025-03-26] MEDS: STERILE WATER 20 ML ONE (15:39)
== END 2025-03-26 17:00 | disposition home or self-care (01) ==
LOC: CHF HDHVI 11:51
PROVIDERS: ATTEND Internal Medicine Cardiovascular Disease
DX: N39.0 Urinary tract infection, site not specified (principal); I13.0 Hypertensive heart and chronic kidney disease with heart failure and stage 1 through stage 4 chronic kidney disease, or unspecified chronic kidney disease; E11.22 Type 2 diabetes mellitus with diabetic chronic kidney disease; I50.33 Acute on chronic diastolic (congestive) heart failure; N18.30 Chronic kidney disease, stage 3 unspecified; E11.40 Type 2 diabetes mellitus with diabetic neuropathy, unspecified; E11.51 Type 2 diabetes mellitus with diabetic peripheral angiopathy without gangrene; I25.10 Atherosclerotic heart disease of native coronary artery without angina pectoris; K21.9 Gastro-esophageal reflux disease without esophagitis; E78.5 Hyperlipidemia, unspecified; G47.33 Obstructive sleep apnea (adult) (pediatric); Z88.0 Allergy status to penicillin; Z90.710 Acquired absence of both cervix and uterus; Z88.2 Allergy status to sulfonamides
CPT/HCPCS: 96365; G0463; J1956

== ENCOUNTER 2025-05-08 12:47 | Outpatient (CLI) | payer MEDICARE, BC ==
[2025-05-08] MEDS: IRON SUCROSE 20 mg/ml 10ml VIAL IV ONE (12:52)
[2025-05-08 12:53] VITALS: BP 123/72; PULSE 81; RESP 16; O2SAT 93
[2025-05-08] MEDS: IRON SUCROSE COMPLEX 110 ML IV ONE (13:00)
[2025-05-08 14:01] VITALS: BP 144/57; PULSE 73; RESP 16; O2SAT 93
== END 2025-05-08 17:00 | disposition home or self-care (01) ==
LOC: CHF HDHVI 12:47
PROVIDERS: ATTEND Internal Medicine Cardiovascular Disease
DX: D50.9 Iron deficiency anemia, unspecified (principal); I13.0 Hypertensive heart and chronic kidney disease with heart failure and stage 1 through stage 4 chronic kidney disease, or unspecified chronic kidney disease; E11.22 Type 2 diabetes mellitus with diabetic chronic kidney disease; I50.33 Acute on chronic diastolic (congestive) heart failure; N18.30 Chronic kidney disease, stage 3 unspecified; E11.42 Type 2 diabetes mellitus with diabetic polyneuropathy; E11.51 Type 2 diabetes mellitus with diabetic peripheral angiopathy without gangrene; I25.10 Atherosclerotic heart disease of native coronary artery without angina pectoris; K21.9 Gastro-esophageal reflux disease without esophagitis; E78.5 Hyperlipidemia, unspecified; G47.33 Obstructive sleep apnea (adult) (pediatric); Z90.710 Acquired absence of both cervix and uterus; Z88.0 Allergy status to penicillin; Z88.2 Allergy status to sulfonamides
CPT/HCPCS: 96365; G0463; J1756